=== PATIENT | male | born 1945 | race Caucasian/White ===

== ENCOUNTER 2023-07-19 09:09 | Outpatient (OUT) | payer MEDICARE, OTHER, SELFPAY ==
[2023-07-19 10:58] LABS: Basophils Percent Auto 0.3 % (0.2-2.0); Eosinophils Percent Auto 0.7 % (0.9-7.0); Hematocrit 43.2 % (42.0-54.0); Hemoglobin 14.7 g/dL (14.0-18.0); Immature Granulocytes Abs Auto 0.02 10^3/uL (0.00-0.03); Immature Granulocytes Pct Auto 0.3 % (0.0-0.5); Lymphocytes Absolute Auto 0.9 10^3/uL (1.2-3.8); Lymphocytes Percent Auto 15.1 % (20.5-60.0); Mean Corpuscular Hemoglobin 34.1 pg (25.9-34.0); Mean Corpuscular Volume 100.2 fL (80.0-94.0); Mean Platelet Volume 11.1 fL (9.5-13.5); Monocytes Absolute Auto 0.6 10^3/uL (0.3-0.8); Monocytes Percent Auto 9.5 % (1.7-12.0); Neutrophils Absolute Auto 4.5 10^3/uL (1.4-6.5); Neutrophils Percent Auto 74.1 % (43.0-75.0); Platelet Count 151 10^3/uL (150-450); Red Blood Count 4.31 10^6/uL (4.70-6.10); White Blood Count 6.1 10^3/uL (4.0-11.0)
[2023-07-19 12:10] LABS: Estimated Average Glucose 117 mg/dL; Glycohemoglobin A1C 5.7 % (4.5-6.2)
[2023-07-19 12:51] LABS: Alanine Aminotransferase 33 U/L (16-63); Albumin Globulin Ratio 1.4; Albumin Level 3.9 g/dL (3.4-5.0); Alkaline Phosphatase 81 U/L (46-116); Anion Gap 13.4; Aspartate Amino Transferase 25 U/L (15-37); BUN Creatinine Ratio 13.9; Bilirubin Total 0.8 mg/dL (0.2-1.0); Carbon Dioxide 28.5 mmol/L (21.0-32.0); Chloride 102 mmol/L (98-107); Chol HDL Ratio 2.9; Cholesterol 164 mg/dL (<=200); Estimated GFR (African America >60 (>=60); Estimated GFR (Non-African Ame >60 (>=60); Free T3 3.33 pg/mL (2.18-3.98); Globulin 2.8 g/dL; Glucose 101 mg/dL (74-106); HDL Cholesterol 56 mg/dL (40-60); LDL Cholesterol Calculated 80.2 mg/dL; Potassium 3.9 mmol/L (3.5-5.1); Sodium 140 mmol/L (136-145); Thyroid Stimulating Hormone 1.328 uIU/mL (0.358-3.740); Total Protein 6.7 g/dL (6.4-8.2); Triglycerides 139 mg/dL (<=150); VLDL CHOLESTEROL 27.8 mg/dL
== END 2023-07-19 09:10 | disposition home or self-care (01) ==
LOC: LAB 09:12
PROVIDERS: PCP Family Medicine; Visit Provider Family Medicine
DX: I10 Essential (primary) hypertension (principal); I48.91 Unspecified atrial fibrillation; M48.061 Spinal stenosis, lumbar region without neurogenic claudication; E78.00 Pure hypercholesterolemia, unspecified; E78.5 Hyperlipidemia, unspecified; R73.09 Other abnormal glucose; Z12.5 Encounter for screening for malignant neoplasm of prostate
CPT/HCPCS: 36415; 80053; 80061; 83036; 84436; 84443; 84481; 85025; G0103

== ENCOUNTER 2024-04-20 14:03 | Inpatient (IN) | payer MEDICARE, OTHER, SELFPAY ==
[2024-04-20] VITALS (33 sets, daily range): BP systolic 146–182; BP diastolic 90–140; PULSE 63–90; TEMP 36.4–36.6; O2SAT 95–99; BMI 30.2; BMI 31.1
--- NOTE | 2024-04-20 14:10 | XR_ITS ---
The [address] [address] Patient Name: JANA MUKHERJEE MRN: [id number] date: 1945 Sex: M Assigned Patient Location: ER Current Patient Location: ER Accession/Order Number: [id number] Exam Date: 04/20/2024 15:05 Report Date: 04/20/2024 16:14 At the request of: EDNA HWANG Procedure: XR knee GAYLE 3V EXAM: XR knee GAYLE 3V HISTORY: pain s/p fall COMPARISON: None. TECHNIQUE: 3 views of bilateral knees FINDINGS: Acute mild displaced horizontal fracture is seen about the mid pole of the right patella with mild anterior displacement of distal fracture fragment. Joint alignment appears normal. Significant soft tissue swelling seen about the anterior right knee. No acute fracture of the left knee is seen. Vascular calcification is seen bilaterally. Small suprapatellar joint effusion is seen about the right knee. A 4.5 mm metallic density is seen within the infrapatellar soft tissues of the left knee suggestive of retained foreign body. XR/XR knee GAYLE 3V IMPRESSION: Acute mild displaced horizontal fracture is seen about the mid pole of the right patella. Small suprapatellar right knee joint effusion. Significant soft tissue swelling seen about the anterior right knee. A 4.5 mm metallic density is seen within the infrapatellar soft tissues of the left knee suggestive of retained foreign body. Bilateral vascular calcification. Electronically authenticated by: LANNY SANCHES Date: 04/20/2024 16:14
--- NOTE | 2024-04-20 14:10 | CT_ITS ---
The [address] [address] Patient Name: JANA MUKHERJEE MRN: [id number] date: 1945 Sex: M Assigned Patient Location: ER Current Patient Location: ER Accession/Order Number: [id number] Exam Date: 04/20/2024 15:25 Report Date: 04/20/2024 16:13 At the request of: EDNA HWANG Procedure: CT head/brain wo con HEAD CT WITHOUT CONTRAST: 04/20/2024 3:25 PM EDT Clinical Data: fall, syncope Comparison: No previous Unenhanced axial data from base to vertex. INTRA-AXIAL: No acute hemorrhage. No acute infarction is evident. EXTRA-AXIAL: No acute hemorrhage. No focal fluid collection. BRAIN VOLUME: Unremarkable for age. VENTRICLES: No hydrocephalus PARANASAL SINUSES: No air-fluid levels in the included aspects. MASTOIDS: Clear. CALVARIUM: No acute finding. EXTRACALVARIAL: No acute findings CT/CT head/brain wo con IMPRESSION: 1. No evidence of acute intracranial process on this unenhanced study as described. All CT scans at this facility use dose modulation, iterative reconstruction, and/or weight based dosing when appropriate to reduce radiation dose to as low as reasonably achievable. Electronically authenticated by: YIMI WILLS Date: 04/20/2024 16:13
--- NOTE | 2024-04-20 14:10 | CT_ITS ---
The [address] [address] Patient Name: JANA MUKHERJEE MRN: [id number] date: 1945 Sex: M Assigned Patient Location: ER Current Patient Location: ER Accession/Order Number: [id number] Exam Date: 04/20/2024 15:25 Report Date: 04/20/2024 16:18 At the request of: EDNA HWANG Procedure: CT cervical spine wo con CERVICAL SPINE CT WITHOUT CONTRAST: 04/20/2024 3:25 PM EDT Clinical History:fall Comparison: None available . Unenhanced helically acquired data per protocol. Some artifact from swallowing PREVERTEBRAL/PARASPINAL: No focal soft tissue prominence or obvious fluid collection in these regions. ALIGNMENT: Loss of lordosis. Mild anterolisthesis at C4-C5 is very likely degenerative. Mild dextroscoliosis centered at C4-C5. Multilevel degenerative changes, particularly involving left upper through mid facet joints. Significant uncovertebral joint DJD at mid and lower cervical levels. Moderate DDD at C5-C6 and C6-C7 with some associated spondylosis. Fair amount of degenerative disease at the anterior atlantodens articulation. Against this background pattern of irregular degenerative disease there is no distinct evidence of acute fracture. No dislocation. OTHER SOFT TISSUES: No focal acute posttraumatic finding. At least moderate calcified plaque at both carotid bifurcations. CT/CT cervical spine wo con IMPRESSION: 1. No evidence of acute fracture or dislocation. All CT scans at this facility use dose modulation, iterative reconstruction, and/or weight based dosing when appropriate to reduce radiation dose to as low as reasonably achievable. Electronically authenticated by: YIMI WILLS Date: 04/20/2024 16:18
--- NOTE | 2024-04-20 14:10 | XR_ITS ---
[address] [address] Patient Name: JANA MUKHERJEE MRN: [id number] date: 1945 Sex: M Assigned Patient Location: ER Current Patient Location: ER Accession/Order Number: [id number] Exam Date: 04/20/2024 15:05 Report Date: 04/20/2024 16:25 At the request of: EDNA HWANG Procedure: XR ribs LT min 3V w CXR1V EXAM: XR ribs LT min 3V w CXR1V HISTORY: pain left ribs s/p fall COMPARISON: None. FINDINGS/IMPRESSION: 1. No acute fracture or dislocation 2. Lungs are clear. No pneumothorax, no pleural effusion. 3. Heart size is normal. 4. Mild degeneration of the lower cervical spine. 5. Upper abdominal bowel gas pattern is nonspecific. Electronically authenticated by: LEESA PEREZ Date: 04/20/2024 16:25
--- NOTE | 2024-04-20 14:10 | ECG_ITS ---
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
--- NOTE | 2024-04-20 14:14 | ED.GENADUL1 ---
HPI HPI - General Adult General Chief complaint: Fall Stated complaint: FALL Time Seen by Provider: 04/20/24 14:07 Source: patient Mode of arrival: ambulance History of Present Illness HPI narrative: Patient is a 78-year-old male presents to the ER from home via EMS for evaluation of fall possible syncopal episode. Patient states he was at home sitting outside drinking 6 beers when he decided to walk around his house. Patient reports waking up on the ground after a fall. He denies any blood thinner use. Patient denies any chest pain or shortness of breath, he notes soreness to his left ribs and bilateral knees after his fall and has a nontender skin tear to the left forearm. He is unsure of his last tetanus. He has a history of A-fib but does not report taking any blood thinners. Patient's was at home at time of injury. I do not know what happened. Patient states he was just walking when he woke up on the ground. Patient denies any symptoms at this time. Related Data Home Medications ?Medication ?Instructions ?Recorded ?Confirmed clonidine HCl 0.1 mg tablet 0.1 mg PO Q12H 04/20/24 04/20/24 hydrochlorothiazide 25 mg tablet 25 mg PO DAILY 04/20/24 04/20/24 lisinopril 20 mg tablet 20 mg PO DAILY 04/20/24 04/20/24 omeprazole 20 mg capsule,delayed 20 mg PO DAILY 04/20/24 04/20/24 release simvastatin 20 mg tablet 20 mg PO DAILY 04/20/24 04/20/24 terazosin 10 mg capsule 10 mg PO DAILY 04/20/24 04/20/24 Allergies Allergy/AdvReac Type Severity Reaction Status Date / Time NSAIDS (Non-Steroidal Allergy Severe Verified 04/20/24 14:09 Anti-Inflamma Opioid HPI Opioid Management Most Recent Opioid Data: No Data to Display Review of Systems ROS Constitutional Denies: fever, chills or change in weight Eyes Denies: change in vision or blurry vision Ears, nose, mouth, and throat Denies: throat pain, neck pain or throat swelling Cardiovascular Reports: chest pain (Left lateral chest wall, scant abrasions.) Respiratory Denies: shortness of breath or cough Gastrointestinal Denies: abdominal pain, nausea, vomiting or coffee grounds in vomit Musculoskeletal Reports: extremity pain; Denies: back pain, neck pain or extremity swelling Integumentary/Breast Denies: rash or itching Neurological Denies: headache or numbness in extremities Psychiatric Denies: anxiety Hematologic/Lymphatic Denies: easy bruising Exam Narrative Exam Narrative: Nurses note and vital signs reviewed and patient is not hypoxic. General: The patient appears well and in no apparent distress. Patient is resting comfortably on cart. GCS = 15. Skin: Warm, dry, no pallor noted.Skin tear noted to left forearm x 3, no active bleeding. Patient has abrasions to the bilateral anterior knee right greater than left. Scant abrasions to the left lateral chest wall with no bleeding. Head: Normocephalic, atraumatic Neck: Supple, trachea mid-line, no tenderness, no lymphadenopathy. Full ROM and no cervical spinal tenderness. The patient has no step-offs or crepitus noted Eyes: PERRLA, EOMI ENT: TM's clear, no hemotympanum detected, no blood in posterior oropharynxDentures present, minimal abrasion on upper lip. Cardiovascular: Regular Rate and Rhythm, No prominent murmur. Respiratory: Patient is in no distress, no accessory muscle use, lungs are clear to auscultation, no wheezing, rales or rhonchi Chest Wall: Lateral chest wall tenderness, no palpable crepitus, no paradoxical chest motion movement patient does have skin abrasions consistent with fall likely onto the left side. Back: Back has no evidence of trauma, including contusion, abrasion, swelling or ecchymosis. The patient had no evidence of step-offs or creptitace noted. No tenderness to palpation. Negative straight leg raise bilaterally. Musculoskeletal: normal ROM, no tenderness, no swelling.Swelling noted to right prepatellar soft tissues with overlying abrasion.Leg raise intact Pulses at femoral, DP, PT, and popiteal were 2+ bilaterally. Moves all four extremities in all modalities with 5/5 strength. GI: Normal bowel sounds,Remote surgical scars noted, patient reports surgery from ulcers no tenderness to palpation, no masses appreciated. No rebound, guarding, or rigidity noted. Neurological: A&O x4, normal equal siding applicator strength, normal speech, normal coordination, normal motor, normal sensory. Psychiatric: Cooperative Constitutional Vital Signs, click to edit/add: Last Vital Signs Temp 97.9 F 04/20/24 14:04 Pulse 87 06/01/24 16:40 Resp 22 H 04/20/24 16:40 BP 146/100 H 04/20/24 16:42 Pulse Ox 95 04/20/24 16:40 O2 Del Method Room Air 04/20/24 14:04 Course Vital Signs Vital signs: Vital Signs Temperature 97.9 F 04/20/24 14:04 Pulse Rate 66 04/20/24 14:04 Respiratory Rate 20 04/20/24 14:04 Blood Pressure 150/90 H 04/20/24 14:04 Pulse Oximetry 99 04/20/24 14:04 Oxygen Delivery Method Room Air 04/20/24 14:04 Temperature 97.9 F 04/20/24 14:04 Pulse Rate 87 04/20/24 16:40 Respiratory Rate 22 H 04/20/24 16:40 Blood Pressure 146/100 H 04/20/24 16:42 Pulse Oximetry 95 04/20/24 16:40 Oxygen Delivery Method Room Air 04/20/24 14:04 Medical Decision Making MDM Narrative Medical decision making narrative: Patient admits to drinking 6 beers throughout the morning, presents after fall, possible trip or syncopal episode in his yard. Patient denies exerting himself. He has localized soreness to abrasions and left lateral chest wall. Patient breathing easily. He is unsure of any head or neck injury but does have some abrasions to his mouth. Patient denies any blood thinner use. He is alert and oriented to person place and recent events. Patient appears nontoxic.Patient denies any symptoms prior to his fall or episode.Tetanus Was updated. Patient's troponin was elevated, repeat troponin ordered as patient not experiencing any classic chest pain symptoms but did have possible syncopal event. Patient potassium noted to be 3.1 and he was given 50 mEq p.o. Patient adamantly refused p.o. aspirin, states he had a history of bleeding ulcers in the past and is not to take any anti-inflammatory medication or aspirin. Patient admits he has a history of many of intermittent A-fib and is not even on blood thinners for that. We discussed the risk benefit of aspirin, blood thinning medication in the event of a cardiac condition and the patient verbalizes understanding but declines any Treatment: Given to prior surgeons telling him never to take blood thinners. at bedside states patient drinks between 6-12 beers a day chronically. Patient was walking behind his when he fell, and he does not recall any symptoms leading up to this other than waking up on the ground. His right knee was placed in a straight leg knee immobilizer, straight leg raise was intact with initial exam. Patient aware we are waiting repeat troponin test before discussing disposition.Patient declines the need for any pain medication. I am not having any pain. Patient's repeat troponin minimally elevated from previous. Patient remains asymptomatic. Discussion with patient and his at bedside regarding Bated troponin, likely syncopal episode, cannot rule out cardiac event, complication with daily alcohol use and right patella fracture. Patient declines any aspirin or blood thinning medications. Patient agreeable to stay for observation and continued monitoring of his cardiac status. We discussed case with Dr. Pimentel who is agreeable to admit the patient to stepdown for observation. I did contact Dr. Pepe who will consult orthopedics on his right patella fracture. Aware of treatments. Lab Data Labs: Lab Results 04/20/24 04/20/24 Range/Units 14:35 16:07 WBC 6.0 (4.0-11.0) 10^3/uL RBC 4.10 L (4.70-6.10) 10^6/uL Hgb 13.8 L (14.0-18.0) g/dL Hct 40.5 L (42.0-54.0) % MCV 98.8 H (80.0-94.0) fL MCH 33.7 (25.9-34.0) pg MCHC 34.1 (29.9-35.2) g/dL RDW 11.9 (11.0-15.0) % Plt Count 163 (150-450) 10^3/uL MPV 10.4 (9.5-13.5) fL Neut % (Auto) 66.2 (43.0-75.0) % Lymph % (Auto) 20.6 (20.5-60.0) % [place] % (Auto) 11.6 (1.7-12.0) % Eos % (Auto) 1.0 (0.9-7.0) % Baso % (Auto) 0.3 (0.2-2.0) % Neut # (Auto) 3.9 (1.4-6.5) 10^3/uL Lymph # (Auto) 1.2 (1.2-3.8) 10^3/uL [place] # (Auto) 0.7 (0.3-0.8) 10^3/uL Eos # (Auto) 0.1 (0.0-0.7) 10^3/uL Baso # (Auto) 0.0 (0.0-0.1) 10^3/uL Abs Immat Gran (auto) 0.02 (0.00-0.03) 10^3/uL Imm/Tot Granulo (auto) 0.3 (0.0-0.5) % PT 10.7 (9.0-11.6) sec INR 1.01 APTT 28.6 (22.3-36.2) sec Sodium 135 L (136-145) mmol/L Potassium 3.1 L (3.5-5.1) mmol/L Chloride 98 (98-107) mmol/L Carbon Dioxide 25.7 (21.0-32.0) mmol/L Anion Gap 14.4 BUN 12.0 (7.0-18.0) mg/dL Creatinine 0.82 (0.70-1.30) mg/dL Est GFR ( Amer) >60 (>=60) Est GFR (Non-Af Amer) >60 (>=60) BUN/Creatinine Ratio 14.6 Glucose 106 (74-106) mg/dL Calcium 8.6 (8.5-10.1) mg/dL Total Bilirubin 0.7 (0.2-1.0) mg/dL AST 28 (15-37) U/L ALT 33 (16-63) U/L Alkaline Phosphatase 90 (46-116) U/L Troponin I High Sens 169.8 H* 175.6 H* (4.0-76.1) pg/mL Total Protein 6.5 (6.4-8.2) g/dL Albumin 3.7 (3.4-5.0) g/dL Globulin 2.8 g/dL Albumin/Globulin Ratio 1.3 Ethanol Quant 132 mg/dL Imaging Data CT scan - head: Radiologist's impression: ITS Impressions Cervical Spine CT 04/20/24 14:10 IMPRESSION: 1. No evidence of acute fracture or dislocation. All CT scans at this facility use dose modulation, iterative reconstruction, and/or weight based dosing when appropriate to reduce radiation dose to as low as reasonably achievable. Electronically authenticated by: YIMI WILLS Date: 04/20/2024 16:[address] 04/20/24 14:10 IMPRESSION: 1. No evidence of acute intracranial process on this unenhanced study as described. All CT scans at this facility use dose modulation, iterative reconstruction, and/or weight based dosing when appropriate to reduce radiation dose to as low as reasonably achievable. Electronically authenticated by: YIMI WILLS Date: 04/20/2024 16:13 Knee X-Ray 04/20/24 14:10 IMPRESSION: Acute mild displaced horizontal fracture is seen about the mid pole of the right patella. Small suprapatellar right knee joint effusion. Significant soft tissue swelling seen about the anterior right knee. A 4.5 mm metallic density is seen within the infrapatellar soft tissues of the left knee suggestive of retained foreign body. Bilateral vascular calcification. Electronically authenticated by: LANNY SANCHES Date: 04/20/2024 16:14 ECG Data Attestation: I personally reviewed and interpreted this ECG as follows: Interpretation: EKG interpretation: Emergency Department physician interpretation, normal sinus rhythm, 63 bpm , [address] segment elevation, normal axis. RepeatEKG 15:46: Sinus Rhythm 78 BPM: artifact, NO ST elevation. Discharge Plan Discharge Chief Complaint: Fall Clinical Impression: Syncope, Elevated troponin, Closed fracture of right patella, Alcohol abuse Patient Disposition: Admitted as Observation Time of Disposition Decision: 17:00 Condition: Good Prescriptions / Home Meds: No Action clonidine HCl 0.1 mg tablet 0.1 mg PO Q12H hydrochlorothiazide 25 mg tablet 25 mg PO DAILY lisinopril 20 mg tablet 20 mg PO DAILY omeprazole 20 mg capsule,delayed release(DR/EC) 20 mg PO DAILY simvastatin 20 mg tablet 20 mg PO DAILY terazosin 10 mg capsule 10 mg PO DAILY Print Language: Belarusian Additional Instructions: Pt see Dr. Lane Gross for orthopedics (L) knee, Cardiology with [facility], Dr. Rg- PCP, [facility] abdominal sx, bleeding ulcer. ( lives at home with pt he drinks 6-12 beers a day, everyday ) Referrals: Claudio Rg MD [Primary Care Provider] - 1 week Procedures ED Procedure Instructions Procedures Procedures: Splint Application: The patient was placed in a Right straight leg knee immobilizer. The patient was neurovascularly intact post application of the splint.
[2024-04-20 14:40] LABS: Basophils Percent Auto 0.3 % (0.2-2.0); Eosinophils Absolute Auto 0.1 10^3/uL (0.0-0.7); Hematocrit 40.5 % (42.0-54.0); Hemoglobin 13.8 g/dL (14.0-18.0); Immature Granulocytes Abs Auto 0.02 10^3/uL (0.00-0.03); Immature Granulocytes Pct Auto 0.3 % (0.0-0.5); Lymphocytes Absolute Auto 1.2 10^3/uL (1.2-3.8); Lymphocytes Percent Auto 20.6 % (20.5-60.0); Mean Corpuscular HGB Conc 34.1 g/dL (29.9-35.2); Mean Corpuscular Hemoglobin 33.7 pg (25.9-34.0); Mean Corpuscular Volume 98.8 fL (80.0-94.0); Mean Platelet Volume 10.4 fL (9.5-13.5); Monocytes Absolute Auto 0.7 10^3/uL (0.3-0.8); Monocytes Percent Auto 11.6 % (1.7-12.0); Neutrophils Absolute Auto 3.9 10^3/uL (1.4-6.5); Neutrophils Percent Auto 66.2 % (43.0-75.0); Platelet Count 163 10^3/uL (150-450); Red Cell Distribution Width 11.9 % (11.0-15.0)
[2024-04-20] MEDS: 0.9 % SODIUM CHLORIDE 1,000 ML 999 ML IV (14:47)
[2024-04-20] MEDS: BACITRACIN 0.9 GM PACKET 1 PACKET TOPICAL (14:48)
[2024-04-20] MEDS: ADACEL DIPH,PERTUSS(ACELL),TET VAC/PF 0.5 ML ADULT SYRINGE IM (14:48)
[2024-04-20 14:55] LABS: INR 1.01; Partial Thromboplastin Time 28.6 sec (22.3-36.2); Prothrombin Time 10.7 sec (9.0-11.6)
[2024-04-20 14:59] LABS: Alanine Aminotransferase 33 U/L (16-63); Albumin Globulin Ratio 1.3; Albumin Level 3.7 g/dL (3.4-5.0); Alkaline Phosphatase 90 U/L (46-116); Anion Gap 14.4; Aspartate Amino Transferase 28 U/L (15-37); BUN Creatinine Ratio 14.6; Bilirubin Total 0.7 mg/dL (0.2-1.0); Calcium 8.6 mg/dL (8.5-10.1); Carbon Dioxide 25.7 mmol/L (21.0-32.0); Chloride 98 mmol/L (98-107); Estimated GFR (African America >60 (>=60); Estimated GFR (Non-African Ame >60 (>=60); Globulin 2.8 g/dL; Glucose 106 mg/dL (74-106); Potassium 3.1 mmol/L (3.5-5.1); Sodium 135 mmol/L (136-145); Total Protein 6.5 g/dL (6.4-8.2)
[2024-04-20 15:02] LABS: Troponin I High Sensitivity 169.8 pg/mL (4.0-76.1)
[2024-04-20 15:16] LABS: Ethanol 132 mg/dL
[2024-04-20] MEDS: POTASSIUM BICARBONATE/CIT 25 MEQ TABLET EFF 50 MEQ PO (15:38)
--- NOTE | 2024-04-20 15:44 | ECG_ITS ---
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
[2024-04-20 16:45] LABS: Troponin I High Sensitivity 175.6 pg/mL (4.0-76.1)
[2024-04-20] MEDS: LACTATED RINGER'S SOLUTION 1,000 ML 125 ML IV (18:40)
[2024-04-20 20:32] LABS: Troponin I High Sensitivity 165.1 pg/mL (4.0-76.1)
[2024-04-20] MEDS: ACETAMINOPHEN 325 MG TABLET 650 MG PO (21:19)
[2024-04-21] VITALS (38 sets, daily range): BP systolic 114–192; BP diastolic 59–104; PULSE 63–117; TEMP 36.3–36.8; O2SAT 78–99
[2024-04-21] MEDS: HYDRALAZINE HCL 20 MG/ML VIAL 10 MG IVP (01:07)
[2024-04-21] MEDS: LACTATED RINGER'S SOLUTION 1,000 ML 125 ML IV (01:07)
[2024-04-21 02:04] LABS: Basophils Percent Auto 0.2 % (0.2-2.0); Eosinophils Percent Auto 0.2 % (0.9-7.0); Hematocrit 36.1 % (42.0-54.0); Hemoglobin 12.5 g/dL (14.0-18.0); Immature Granulocytes Abs Auto 0.01 10^3/uL (0.00-0.03); Immature Granulocytes Pct Auto 0.2 % (0.0-0.5); Lymphocytes Absolute Auto 0.7 10^3/uL (1.2-3.8); Lymphocytes Percent Auto 10.6 % (20.5-60.0); Mean Corpuscular HGB Conc 34.6 g/dL (29.9-35.2); Mean Corpuscular Hemoglobin 33.5 pg (25.9-34.0); Mean Corpuscular Volume 96.8 fL (80.0-94.0); Mean Platelet Volume 10.9 fL (9.5-13.5); Monocytes Absolute Auto 0.6 10^3/uL (0.3-0.8); Monocytes Percent Auto 8.7 % (1.7-12.0); Neutrophils Absolute Auto 5.2 10^3/uL (1.4-6.5); Neutrophils Percent Auto 80.1 % (43.0-75.0); Platelet Count 152 10^3/uL (150-450); Red Blood Count 3.73 10^6/uL (4.70-6.10); Red Cell Distribution Width 11.9 % (11.0-15.0); White Blood Count 6.4 10^3/uL (4.0-11.0)
[2024-04-21 02:25] LABS: Alanine Aminotransferase 24 U/L (16-63); Albumin Globulin Ratio 1.4; Albumin Level 3.3 g/dL (3.4-5.0); Alkaline Phosphatase 80 U/L (46-116); Anion Gap 12.6; Aspartate Amino Transferase 22 U/L (15-37); BUN Creatinine Ratio 14.5; Bilirubin Total 1.3 mg/dL (0.2-1.0); Calcium 8.2 mg/dL (8.5-10.1); Carbon Dioxide 23.6 mmol/L (21.0-32.0); Chloride 96 mmol/L (98-107); Estimated GFR (African America >60 (>=60); Estimated GFR (Non-African Ame >60 (>=60); Globulin 2.3 g/dL; Glucose 100 mg/dL (74-106); Potassium 3.2 mmol/L (3.5-5.1); Sodium 129 mmol/L (136-145); Total Protein 5.6 g/dL (6.4-8.2)
[2024-04-21 02:37] LABS: Troponin I High Sensitivity 176.7 pg/mL (4.0-76.1)
--- NOTE | 2024-04-21 04:49 | ECG_ITS ---
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
[2024-04-21] MEDS: METOPROLOL TARTRATE 5 MG/5 ML VIAL IVP (05:00)
[2024-04-21] MEDS: ACETAMINOPHEN 325 MG TABLET 650 MG PO (07:26)
--- NOTE | 2024-04-21 08:19 | PC.NURSE ---
Patient and are insistent that patient takes his home medications as he was told by his PCP, Dr. Jayy Rg, to bring them in with any hospital admission. Patient refused to take any medications provided at this time provided by the hospital. Witnessed patient taking the following medication: 1 tablet of Metoprolol Succinate ER Tabs 100 mg, [address] Caps 20 mg, 1 tablet of Hydrochloriazide Tabs 25 mg, 1 tablet of Clonidine Hcl Tabs 0.1 mg, 2 soft gels of PreserVison Eye Vitamins. Patient allowed this RN to put medications in drawer and lock the drawer. No narcotics were in patients bag of home medications at this time. Patient was advised of policy change for home medication administration that would occur on 04/22/2024. Patient and verbalized understanding at this time.
[2024-04-21 08:38] LABS: Troponin I High Sensitivity 235.8 pg/mL (4.0-76.1)
--- NOTE | 2024-04-21 09:27 | P.HP_ITS ---
HPI H&P: HPI History of Present Illness Chief complaint: Right Patella Fracture Narrative: Pt seen in ER with syncopal episode. Been drinking more. ETOH level in ER high. Tachycardia with a-fib, REsp distress. Foubnd to have a Fractured R knee cap. Elevated Troponin, With syncope elevated troponin, admitted to ICU. When I saw the patient in the ICU, He was restingcomfortably in bed. Denied CP, PEREZ, Headache. Monitor with A-fib with controlled response mostly. Opioid HPI Opioid Management Most Recent Opioid Data: Last Pain Scale 4 04/21/24 08:26 Last Pain Assessment 04/21/24 12:00 Last MAR Pain Assessment 04/21/24 08:26 Last ORT Total Score 3 04/20/24 17:47 Last ORT Risk Category Low Risk 04/20/24 17:47 Review of Systems ROS Status of ROS 10 or more systems reviewed and unremark able except as noted in history and below [facility] Medical History (Updated 04/21/24 @ 11:59 by MARY Echeverria) Cataract (lens) fragments in eye following cataract surgery, bilateral ?H59.023 - Cataract (lens) fragments in eye following cataract surgery, bilateral (ICD-10) Social History Highest level of school completed/degree received: 9th grade Meds Home Medications and Allergies Home Medications ?Medication ?Instructions ?Recorded ?Confirmed ?Type clonidine HCl 0.1 mg tablet 0.1 mg PO Q12H 04/20/24 04/20/24 History hydrochlorothiazide 25 mg tablet 25 mg PO DAILY 04/20/24 04/20/24 History lisinopril 20 mg tablet 20 mg PO BEDTIME 04/20/24 04/21/24 History metoprolol succinate 100 mg 100 mg PO DAILY 04/20/24 04/20/24 History tablet,extended release 24 hr omeprazole 20 mg capsule,delayed 20 mg PO DAILY 04/20/24 04/20/24 History release simvastatin 20 mg tablet 20 mg PO BEDTIME 04/20/24 04/21/24 History terazosin 10 mg capsule 10 mg PO BEDTIME 04/20/24 04/21/24 History vit C 250 mg-vit E 90 mg-zinc 40 1 tab PO BID 04/21/24 04/21/24 History mg-copper 1 [id number] capsule (PreserVision AREDS-2) Allergies Allergy/AdvReac Type Severity Reaction Status Date / Time NSAIDS (Non-Steroidal Allergy Severe Verified 04/20/24 14:09 Anti-Inflamma Exam Constitutional Vital Signs, click to edit/add: Last Vital Signs Temp 97.9 F 04/21/24 07:23 Pulse 98 H 04/21/24 08:00 Resp 28 H 04/21/24 07:30 BP 147/67 H 04/21/24 07:23 Pulse Ox 96 04/21/24 07:23 O2 Del Method Room Air 04/21/24 05:30 Documenting provider has reviewed patient's vital signs: yes Common normals: no apparent distress Respiratory Common normals: normal respiratory effort, no retractions and no use of accessory muscles Cardio Common normals: regular rate and regular rhythm; murmurs detected Heart sounds: murmur systolic GI Common normals: Normal to inspection, nondistended, normoactive bowel sounds present Extremity Common normals: normal to inspection (R leg in splint) Results Labs Labs: Short CBC 04/20/24 04/21/24 Range/Units 14:35 01:57 WBC 6.0 6.4 (4.0-11.0) 10^3/uL Hgb 13.8 L 12.5 L (14.0-18.0) g/dL Hct 40.5 L 36.1 L (42.0-54.0) % Plt Count 163 152 (150-450) 10^3/uL BMP 04/20/24 04/21/24 14:35 01:57 Sodium 135 L 129 L Potassium 3.1 L 3.2 L Chloride 98 96 L Carbon Dioxide 25.7 23.6 BUN 12.0 10.0 Creatinine 0.82 0.69 L Glucose 106 100 Calcium 8.6 8.2 L Liver Function 04/20/24 04/21/24 Range/Units 14:35 01:57 Total Bilirubin 0.7 1.3 H (0.2-1.0) mg/dL AST 28 22 (15-37) U/L ALT 33 24 (16-63) U/L Alkaline Phosphatase 90 80 (46-116) U/L Albumin 3.7 3.3 L (3.4-5.0) g/dL Assessment and Plan Assessment and Plan (1) Alcohol abuse: (2) Closed fracture of right patella: Qualifiers: Encounter type: initial encounter Fracture alignment: displaced Fracture morphology: transverse Qualified Code(s): S82.031A - Displaced transverse fracture of right patella, initial encounter for closed fracture (3) Syncope: (4) Elevated troponin: Plan A-Fib RVR with Respiratory distress, Uncontrolled hypertension resulting in demand ischemia and elevated High sensitivity troponin, leading to syncope and head contusion and fractured R patella. A-fib, rvr - rate controlled currently Elevated Troponin likely related to uncontrolled hypertension and tachycardia with demand ischemia, Check on BNP, Check echo, add imdur Hypertension up some this am - has PRN hydralazine, will add back his home clonidine but inc to TID R Patellar fracture - consult to Ortho ETOH abuse - Doug casey, agrees. CIWA scale and start phenobarb Acute blood loss anemia - down 2 gams from baseline hgb fo 14. Check occ blood - cont with omeprazole for now Hyponatremia - likely alcohol abuse related - change to NS Hypokalemia - Supplement - monitor daily Mild PCM related to ETOH abuse - diet management Admission status: Elevated troponin, uncontrolled hypertension, syncope admitted to ICU inpatient as medically necessary treatment and waiting for Testing (Echo), Medically Necessary treatment will span 2 midnights requiring inpatient status
[2024-04-21] MEDS: 0.9 % SODIUM CHLORIDE 1,000 ML 75 ML IV ×2 (09:39→22:09)
[2024-04-21] MEDS: CLORDIAZEPOXIDE HCl 25 MG CAPSULE PO (09:44)
[2024-04-21] MEDS: POTASSIUM CHLORIDE 10 MEQ ER TABLET 20 MEQ PO ×2 (09:44→17:30)
[2024-04-21] MEDS: ISOSORBIDE MONONITRATE 30 MG TAB.ER.24H PO (09:44)
--- NOTE | 2024-04-21 11:15 | PC.NURSE ---
Ortho in with patient discussing plan of care and need for surgery on patellar fracture. Dressing to right knee removed and redressed with adaptic and kerlix. Patient to have leg elevated and ice applied while in knee immobilizer. Additional skin tears were assessed and redressed at this time as well. Patient tolerated dressing changes well.
--- NOTE | 2024-04-21 11:45 | P.ORCN_ITS ---
History of Present Illness HPI Consult date: 04/21/24 Requesting physician: Vic Castorena Consult reason: fracture Chief complaint: Right Patella Fracture Narrative: Patient is 78yr old male with a PMH of A.Fib, HTN, HLD, and Alcohol abuse that presented to the ED yesterday on 04/20/24 after he suffered a syncopal fall from standing. Patient denies antiplatelet or anticoagulant use. Pt states that he was drinking some beers outside and then went inside and woke up on the ground. Patient underwent workup in the ED that included an Xray of his R Knee revealing a Patella fracture. Orthopedics was consulted by the ED Physician for further evaluation and management of this fracture. Patient was admitted by the hospitalist for syncopal workup with an elevated troponin. Review of Systems ROS Musculoskeletal Reports: extremity pain (R Knee), joint pain and joint swelling (Prepatellar effusion) [facility] Medical History (Updated 04/21/24 @ 11:59 by MARY Echeverria) Cataract (lens) fragments in eye following cataract surgery, bilateral ?H59.023 - Cataract (lens) fragments in eye following cataract surgery, bilateral (ICD-10) Social History Highest level of school completed/degree received: 9th grade Meds Home Medications and Allergies Home Medications ?Medication ?Instructions ?Recorded ?Confirmed ?Type clonidine HCl 0.1 mg tablet 0.1 mg PO Q12H 04/20/24 04/20/24 History hydrochlorothiazide 25 mg tablet 25 mg PO DAILY 04/20/24 04/20/24 History lisinopril 20 mg tablet 20 mg PO BEDTIME 04/20/24 04/21/24 History metoprolol succinate 100 mg 100 mg PO DAILY 04/20/24 04/20/24 History tablet,extended release 24 hr omeprazole 20 mg capsule,delayed 20 mg PO DAILY 04/20/24 04/20/24 History release simvastatin 20 mg tablet 20 mg PO BEDTIME 04/20/24 04/21/24 History terazosin 10 mg capsule 10 mg PO BEDTIME 04/20/24 04/21/24 History vit C 250 mg-vit E 90 mg-zinc 40 1 tab PO BID 04/21/24 04/21/24 History mg-copper 1 [id number] capsule (PreserVision AREDS-2) Allergies Allergy/AdvReac Type Severity Reaction Status Date / Time NSAIDS (Non-Steroidal Allergy Severe Verified 04/20/24 14:09 Anti-Inflamma Exam Narrative Exam Narrative: On exam patient is in no distress and sitting up on the hospital bed. Knee immobilizer is in place. ROM of R Knee not attempted 2/2 to pain and fracture. Full ROM distally R extremity 5/5 strength DF/PF. Patient is tender to palpation of his R Patella with prepatellar effusion present. There is a abrasion to his R Knee overlying the patella with no drainage from the wound noted on exam, the dressing was removed and appears to have some ss drainage present. Joint line tenderness to palpation also present medially and laterally. Knee extensor mechanism appears intact, patient able to complete a SLR in knee immobilizer. Constitutional Vital Signs, click to edit/add: Last Vital Signs Temp 97.9 F 04/21/24 07:23 Pulse 100 H 04/21/24 10:00 Resp 28 H 04/21/24 07:30 BP 147/67 H 04/21/24 08:00 Pulse Ox 96 04/21/24 07:23 O2 Del Method Room Air 04/21/24 10:43 Results Labs Labs: Abnormal lab results 04/20/24 04/20/24 04/20/24 Range/Units 14:35 16:07 20:03 RBC 4.10 L (4.70-6.10) 10^6/uL Hgb 13.8 L (14.0-18.0) g/dL Hct 40.5 L (42.0-54.0) % MCV 98.8 H (80.0-94.0) fL Neut % (Auto) (43.0-75.0) % Lymph % (Auto) (20.5-60.0) % Eos % (Auto) (0.9-7.0) % Lymph # (Auto) (1.2-3.8) 10^3/uL Sodium 135 L (136-145) mmol/L Potassium 3.1 L (3.5-5.1) mmol/L Chloride (98-107) mmol/L Creatinine (0.70-1.30) mg/dL Calcium (8.5-10.1) mg/dL Total Bilirubin (0.2-1.0) mg/dL Troponin I High Sens 169.8 H* 175.6 H* 165.1 H* (4.0-76.1) pg/mL Total Protein (6.4-8.2) g/dL Albumin (3.4-5.0) g/dL 04/21/24 04/21/24 Range/Units 01:57 07:52 RBC 3.73 L (4.70-6.10) 10^6/uL Hgb 12.5 L (14.0-18.0) g/dL Hct 36.1 L (42.0-54.0) % MCV 96.8 H (80.0-94.0) fL Neut % (Auto) 80.1 H (43.0-75.0) % Lymph % (Auto) 10.6 L (20.5-60.0) % Eos % (Auto) 0.2 L (0.9-7.0) % Lymph # (Auto) 0.7 L (1.2-3.8) 10^3/uL Sodium 129 L (136-145) mmol/L Potassium 3.2 L (3.5-5.1) mmol/L Chloride 96 L (98-107) mmol/L Creatinine 0.69 L (0.70-1.30) mg/dL Calcium 8.2 L (8.5-10.1) mg/dL Total Bilirubin 1.3 H (0.2-1.0) mg/dL Troponin I High Sens 176.7 H* 235.8 H* (4.0-76.1) pg/mL Total Protein 5.6 L (6.4-8.2) g/dL Albumin 3.3 L (3.4-5.0) g/dL H & H 04/20/24 04/21/24 Range/Units 14:35 01:57 Hgb 13.8 L 12.5 L (14.0-18.0) g/dL Hct 40.5 L 36.1 L (42.0-54.0) % Coagulation 04/20/24 Range/Units 14:35 INR 1.01 All other labs normal. Assessment and Plan Assessment and Plan (1) Closed fracture of right patella: Qualifiers: Encounter type: initial encounter Fracture morphology: transverse Fracture alignment: displaced Qualified Code(s): S82.031A - Displaced transverse fracture of right patella, initial encounter for closed fracture Plan - Xray R Knee reviewed from 04/20 with note of acute mild displaced horizontal fracture is seen about the mid pole of the right patella, Significant soft tissue swelling seen about the anterior right knee. A 4.5 mm metallic density is seen within the infrapatellar soft tissues of the left knee suggestive of retained foreign body. - WBAT in Knee Immobilizer - We discussed Ice q2h for 20min at a time to R Knee and elevation, pt voiced understanding. - Recommended ORIF Right Patella, risks and benefits of surgery vs non operative management were discussed and patient, who voices understanding and would like to proceed with operative repair. - Patient will need medical clearance prior to surgery given his recent a dmission. - Surgery will likely be Monday 04/23, patient may be discharged home from Ortho standpoint once medically cleared. Our office will contact him with details about the surgery. Maintain knee immobilizer for ambulation at discharge.
[2024-04-21] MEDS: CLONIDINE HCL 0.1 MG TABLET 0.100000000000000006 MG PO (12:26)
[2024-04-21] MEDS: PHENobarbitaL 32.4 MG TABLET 32.3999999999999986 MG PO ×2 (12:26→17:31)
[2024-04-22] VITALS (26 sets, daily range): BP systolic 117–180; BP diastolic 67–89; PULSE 72–98; TEMP 36.3–36.9; O2SAT 78–97
[2024-04-22] MEDS: ISOSORBIDE MONONITRATE 30 MG TAB.ER.24H PO (04:03)
[2024-04-22] MEDS: POTASSIUM CHLORIDE 10 MEQ ER TABLET 20 MEQ PO ×2 (04:04→17:37)
[2024-04-22] MEDS: CLONIDINE HCL 0.1 MG TABLET 0.100000000000000006 MG PO ×3 (04:04→17:37)
[2024-04-22] MEDS: OMEPRAZOLE 20 MG CAPSULE.DR PO (04:07)
[2024-04-22] MEDS: METOPROLOL SUCCINATE 50 MG TAB.ER.24H 100 MG PO (04:07)
[2024-04-22] MEDS: PHENobarbitaL 32.4 MG TABLET 32.3999999999999986 MG PO ×3 (04:07→17:37)
[2024-04-22 05:21] LABS: Basophils Percent Auto 0.1 % (0.2-2.0); Eosinophils Percent Auto 0.4 % (0.9-7.0); Hematocrit 38.3 % (42.0-54.0); Hemoglobin 12.8 g/dL (14.0-18.0); Immature Granulocytes Abs Auto 0.03 10^3/uL (0.00-0.03); Immature Granulocytes Pct Auto 0.4 % (0.0-0.5); Lymphocytes Absolute Auto 0.8 10^3/uL (1.2-3.8); Lymphocytes Percent Auto 12.2 % (20.5-60.0); Mean Corpuscular HGB Conc 33.4 g/dL (29.9-35.2); Mean Corpuscular Hemoglobin 33.5 pg (25.9-34.0); Mean Corpuscular Volume 100.3 fL (80.0-94.0); Mean Platelet Volume 11.4 fL (9.5-13.5); Monocytes Absolute Auto 0.9 10^3/uL (0.3-0.8); Monocytes Percent Auto 13.1 % (1.7-12.0); Neutrophils Absolute Auto 5.1 10^3/uL (1.4-6.5); Neutrophils Percent Auto 73.8 % (43.0-75.0); Platelet Count 131 10^3/uL (150-450); Red Blood Count 3.82 10^6/uL (4.70-6.10); Red Cell Distribution Width 12.5 % (11.0-15.0); White Blood Count 6.9 10^3/uL (4.0-11.0)
[2024-04-22 05:59] LABS: Alanine Aminotransferase 23 U/L (16-63); Albumin Globulin Ratio 1.1; Albumin Level 2.9 g/dL (3.4-5.0); Alkaline Phosphatase 77 U/L (46-116); Anion Gap 12.3; Aspartate Amino Transferase 25 U/L (15-37); BUN Creatinine Ratio 16.5; Bilirubin Total 1.2 mg/dL (0.2-1.0); Calcium 8.7 mg/dL (8.5-10.1); Carbon Dioxide 22.9 mmol/L (21.0-32.0); Chloride 102 mmol/L (98-107); Estimated GFR (African America >60 (>=60); Estimated GFR (Non-African Ame >60 (>=60); Globulin 2.7 g/dL; Glucose 101 mg/dL (74-106); Potassium 4.2 mmol/L (3.5-5.1); Sodium 133 mmol/L (136-145); Total Protein 5.6 g/dL (6.4-8.2)
--- NOTE | 2024-04-22 06:00 | CA_ITS ---
Patient Name: JANA MUKHERJEE MR#: [id number] : 1945 Exam Date: 04/22/2024 Ordering Doctor: DR Claudio Rg . ECHOCARDIOGRAM REPORT PROCEDURE: CA ECHO DOPPLER COMPLETE INDICATIONS: Elevated Troponin, syncope, atrial fibrillation, hypertension COMPARISON: None. DESCRIPTION: COMPLETE ECHOCARDIOGRAM Real-time transthoracic echocardiography with 2D, M-mode, spectral and color flow Doppler performed. QUALITY: Technical quality was good. 68 , 204#, BP 147/81 LEFT VENTRICLE: Normal chamber size. Moderate concentric left ventricular hypertrophy. LV EF: Global left ventricular ejection fraction is hyperdynamic; visually ejection fraction is 65 to 70%. No significant wall motion abnormalities. DIASTOLIC: Not adequately assessed due to heart rhythm. ATRIAL SEPTUM: Visually appears intact. LEFT ATRIUM: Moderate dilatation. RIGHT ATRIUM: Moderate dilatation. RIGHT VENTRICLE: Mild dilatation. Normal right ventricular systolic function. TRICUSPID VALVE: Normal mobility and thickness. No stenosis with trivial regurgitation. Unable to assess right-sided pressures due to lack of measurable tricuspid regurgitation. MITRAL VALVE: Normal mobility and thickness. No evidence of mitral valve stenosis. Moderate mitral annular calcification. Trivial mitral regurgitation. AORTIC VALVE: Normal trileaflet appearance. No visible sclerosis. Normal leaflet mobility. No evidence of aortic valve stenosis. No aortic regurgitation. AORTIC ROOT: Normal diameter and appearance. Ascending aorta is normal in size. PULMONIC VALVE: Normal thickness and mobility. No stenosis. Trivial regurgitation. PERICARDIUM: Anterior free space; trivial effusion versus fat pad. IVC: Collapses with inspirations. IVC is dilated (2.2 cm). CONCLUSION: 1. Global left ventricular systolic function is hyperdynamic; visually estimated ejection fraction is 65 to 70% 2. The right ventricle is mildly dilated with preserved systolic function 3. Biatrial enlargement 4. Moderately increased left ventricular wall thickness 5. No significant valvular abnormalities 6. Anterior free space; trivial effusion versus fat pad Adult Echocardiography Procedure Report Left Ventricle LVEDD (3.7 - 5.6 cm): 4.64 cm LVESD (2.2 - 4.0 cm): 3.05 cm LVIVS thickness (0.6 - 1.2 cm): 1.65 cm LVPW thickness (0.5 - 1.0 cm): 1.18 cm e': 0.14 m/s LVOT Max Gradient: 3.65 mm[Hg], 2.01 mm[Hg] LVOT Area (cm2): 0.83 m/s Peak Velocity (LVOT): 0.96 m/s, 0.71 m/s Mean Velocity (LVOT): 0.56 m/s LVOT Diameter 2.27 cm Left Atrium LA Volume Index (2D A2C): 41.47 ml/m2 Left Atrium Systolic Dimension: 4.35 cm Mitral Valve Mitral Valve E-Wave Peak Velocity: 1.10 m/s Right Ventricle RV Internal Diastolic Dimension: 4.05 cm Aorta AO Root Diam: 3.64 cm Ascending Ao Diam: 2.88 cm Aortic Valve AoV Area (Peak Raudel): 2.13 cm2, 2.25 cm2, 1.99 cm2 AoV Area (VTI): 2.20 cm2, 2.35 cm2, 2.03 cm2 Peak Velocity(Antegrade Flow): 1.72 m/s, 1.45 m/s Peak Gradient(Antegrade Flow): 11.84 mm[Hg], 8.35 mm[Hg] Mean Velocity(Antegrade Flow): 1.19 m/s, 1.02 m/s Mean Gradient(Antegrade Flow): 6.46 mm[Hg], 4.78 mm[Hg] Velocity Time Integral: 31.15 cm, 27.35 cm Tricuspid Valve Pulmonic Valve Mean Gradient: 2.37 mm[Hg], 3.08 mm[Hg] Mean Velocity: 0.73 m/s, 0.81 m/s Peak Velocity: 1.14 m/s, 1.08 m/s Peak Gradient: 3.87 mm[Hg], 6.65 mm[Hg], 4.63 mm[Hg] Right Atrium Right Atrium Systolic Pressure: 67.21 ml, 67.21 ml Dictated by: Sherry No M.D. on 04/22/2024 at 14:50 Approved by: Sherry No M.D. on 04/22/2024 at 14:55
--- NOTE | 2024-04-22 07:31 | ECG_ITS ---
[facility] Test Date: 2024-04-22 Pat Name: JANA MUKHERJEE Department: Room: 203 Gender: Male Rn Circulating: : 1945 Requested By: JACQUE MADRID Order Number: [id number] Reading MD: LEEANN BAHENA Measurements Intervals [place] Rate: 78 P: HI: QRS: 66 QRSD: 79 T: 51 QT: 353 QTc: 403 Interpretive Statements ATRIAL FIBRILLATION NONSPECIFIC T-WAVE ABNORMALITY ABNORMAL RHYTHM ECG Compared to ECG 04/21/2024 04:43:01 Aberrant conduction of supraventricular beat(s) now present T-wave abnormality now present Electronically Signed On 04-25-2024 21:17:51 EDT by LEEANN BAHENA
--- NOTE | 2024-04-22 07:33 | P.DS_ITS ---
DS: Providers Provider Date of admission: 04/21/24 09:29 Primary care physician: Claudio Rg MD Consults: 04/20/24 16:49 Occupational Therapy Eval and Treat Routine Reason for consultation: Ambulatory dysfunction/weakness Physical Therapy Eval and Treat Routine Reason for consultation: Ambulatory dysfunction/weakness 04/20/24 16:59 Consult to Orthopedic Surgery Routine Consulting Provider: Lazaro Pepe Reason For Exam: Reason for consultation: lizandro Aware (R) patella fx Has provider been notified: Yes 04/22/24 07:26 Consult to Anesthesiology Routine Consulting Provider: Tereso Katz II Reason for consultation: can any anesth look at case to cleared for OR - spinal for patellar fx Has provider been notified: No 04/22/24 07:29 Consult to Cardiology Routine Reason for consultation: elevated Trop Has provider been notified: No DS: Diagnosis Discharge Diagnosis (1) Alcohol abuse: (2) Closed fracture of right patella: Qualifiers: Encounter type: initial encounter Fracture alignment: displaced Fracture morphology: transverse Qualified Code(s): S82.031A - Displaced transverse fracture of right patella, initial encounter for closed fracture (3) Syncope: (4) Elevated troponin: Plan A-Fib RVR with Respiratory distress, Uncontrolled hypertension resulting in demand ischemia and elevated High sensitivity troponin - elevated at inna time of dc A-fib, rvr - rate controlled currently at time of d/c - PT refuses anticoagulation due to hx of severe GI bleed resulting in major abd surgery Elevated Troponin likely related to uncontrolled hypertension and tachycardia with demand ischemia - elevagted at time of d/c Hypertension - improved at time of d/c R Patellar fracture - consult to Ortho ETOH abuse - added wellbutrin at dc Acute blood loss anemia - down 2 gams from baseline hgb fo 14. Check occ blood pending at d/c Hyponatremia - improving at the time of dc Hypokalemia - resolved at dc Mild PCM related to ETOH abuse - diet management Thrombocytopenia-follow as an outpatient History of severe gastrointestinal bleeding from the stomach resulting in major surgery. Continue PPI at discharge Elevated BNP-this is related to fluids given and holding his diuretic. No overt signs of CHF at the time of discharge Admission status: Elevated troponin, uncontrolled hypertension, syncope admitted to ICU inpatient as medically necessary treatment and waiting for Testing (Echo), Medically Necessary treatment will span 2 midnights requiring inpatient status DS: Summary Hospital Course Hospital Course: Patient presented to the emergency room with a syncopal episode. He had been outside and been drinking beer. Not sure how long he was passed out. In ER found to have A-Fib RVR with Respiratory distress, Uncontrolled hypertension resulting in possible demand ischemia with elevated high-sensitivity troponin. Patient denied chest pain. His EKG and telemetry was unremarkable other than the atrial fibrillation. His high-sensitivity troponins were tracked and they were actually increasing at the time of discharge, consultation to cardiology is pending at this time. Echocardiogram reviewed later this morning. Patient would prefer to be discharged home with outpatient surgery for his patellar fracture. Assuming he is cleared from anesthesia, cleared from cardiology. Will discharge to home later today. Medications see list. Follow-up with me in the office next week. Atrial fibrillation-patient is not anticoagulated secondary to severe peptic ulcer bleed resulting in several major surgeries to correct. Patient does have elevated BNP-this is likely related to holding his diuretics and giving IV hydration, no overt signs of congestive heart failure with clear lung exam and no peripheral edema. Discussed with PT - pt can safely use a wheeled walker for ambulation. Will need for ADL's like going tothe bathroom, getting food, outside mobility for going to the store and ambulating around house Time Spent with Patient Time attestation: Total time spent providing and/or coordinating discharge services: Exam Constitutional Vital Signs, click to edit/add: Last Vital Signs Temp 97.7 F 04/22/24 06:30 Pulse 83 04/22/24 06:30 Resp 18 04/22/24 06:30 BP 147/81 H 04/22/24 06:30 Pulse Ox 97 04/22/24 06:30 O2 Del Method Room Air 04/22/24 06:30 Documenting provider has reviewed patient's vital signs: yes Common normals: no apparent distress Chest Common normals: inspection of chest normal Respiratory Common normals: normal respiratory effort, no retractions and no use of accessory muscles Cardio Common normals: regular rate and regular rhythm; murmurs detected Heart sounds: murmur systolic GI Common normals: negative for Normal to inspection, nondistended, normoactive bowel sounds present (Large mid abdominal surgical scar, well-healed) Extremity Common normals: normal to inspection (R leg in splint), no clubbing, cyanosis or edema and no pedal edema DS: Data Data Completed and Pending Labs on day of discharge: Labs from last 24 hours 04/22/24 04/21/24 04:10 07:52 WBC 6.9 RBC 3.82 L Hgb 12.8 L Hct 38.3 L MCV 100.3 H MCH 33.5 MCHC 33.4 RDW 12.5 Plt Count 131 L MPV 11.4 Neut % (Auto) 73.8 Lymph % (Auto) 12.2 L Dougherty % (Auto) 13.1 H Eos % (Auto) 0.4 L Baso % (Auto) 0.1 L Neut # (Auto) 5.1 Lymph # (Auto) 0.8 L Dougherty # (Auto) 0.9 H Eos # (Auto) 0.0 Baso # (Auto) 0.0 Abs Immat Gran (auto) 0.03 Imm/Tot Granulo (auto) 0.4 Sodium 133 L Potassium 4.2 Chloride 102 Carbon Dioxide 22.9 Anion Gap 12.3 BUN 13.0 Creatinine 0.79 Est GFR ( Amer) >60 Est GFR (Non-Af Amer) >60 BUN/Creatinine Ratio 16.5 Glucose 101 Calcium 8.7 Total Bilirubin 1.2 H AST 25 ALT 23 Alkaline Phosphatase 77 Troponin I High Sens 367.0 H* 235.8 H* NT-Pro-B Natriuret Pep 2025.0 H* 1504.0 Total Protein 5.6 L Albumin 2.9 L Globulin 2.7 Albumin/Globulin Ratio 1.1 Discharge Plan Discharge Condition: Good Discharge Medications: No Action clonidine HCl 0.1 mg tablet 0.1 mg PO Q12H hydrochlorothiazide 25 mg tablet 25 mg PO DAILY lisinopril 20 mg tablet 20 mg PO BEDTIME omeprazole 20 mg capsule,delayed release(DR/EC) 20 mg PO DAILY simvastatin 20 mg tablet 20 mg PO BEDTIME terazosin 10 mg capsule 10 mg PO BEDTIME metoprolol succinate 100 mg tablet extended release 24 hr 100 mg PO DAILY PreserVision AREDS-2 250-90-40-1 mg capsule 1 tab PO BID Print Language: Macanese Patient Instructions: A-fib (Atrial Fibrillation) (DC), Syncope (DC), Abuse of Alcohol (DC), Patellar Fracture (DC)
--- NOTE | 2024-04-22 08:01 | CM.NOTE ---
Important Message From Medicare discussed with pt, pt verbalizes understanding and signs paper. Original given to pt and copy placed on pt's chart.
[2024-04-22] MEDS: HYDROCHLOROTHIAZIDE 25 MG TABLET PO (09:02)
[2024-04-22] MEDS: BUPROPION HCL 150 MG XL TABLET 24H PO (09:02)
--- NOTE | 2024-04-22 11:33 | CM.NOTE ---
Faxed over H&P, facesheet and order to [employer] for wheeled walker. Called [employer] and walker is available for roll picker. Pt will have to pay 125.00 out of pocket and then they will bill Medicare and pt would be reimbursed. Pt and both verbalize understanding.
--- NOTE | 2024-04-22 13:00 | PM.CACN ---
History of Present Illness History of Present Illness Consult date: 04/22/24 Requesting physician: Claudio Rg Chief complaint: Right Patella Fracture Narrative: Per H&P: Pt seen in ER with syncopal episode. Been drinking more. ETOH level in ER high. Tachycardia with a-fib, REsp distress. Foubnd to have a Fractured R knee cap. Elevated Troponin, With syncope elevated troponin, admitted to ICU. When I saw the patient in the ICU, He was resting comfortably in bed. Denied CP, PEREZ, Headache. Monitor with A-fib with controlled response mostly. Per D/C Summary: Patient presented to the emergency room with a syncopal episode. He had been outside and been drinking beer. Not sure how long he was passed out. In ER found to have A-Fib RVR with Respiratory distress, Uncontrolled hypertension resulting in possible demand ischemia with elevated high-sensitivity troponin. Patient denied chest pain. His EKG and telemetry was unremarkable other than the atrial fibrillation. His high-sensitivity troponins were tracked and they were actually increasing at the time of discharge, consultation to cardiology is pending at this time. Echocardiogram reviewed later this morning. Patient would prefer to be discharged home with outpatient surgery for his patellar fracture. Assuming he is cleared from anesthesia, cleared from cardiology. Will discharge to home later today. Medications see list. Follow-up with me in the office next week. Atrial fibrillation-patient is not anticoagulated secondary to severe peptic ulcer bleed resulting in several major surgeries to correct. Patient does have elevated BNP-this is likely related to holding his diuretics and giving IV hydration, no overt signs of congestive heart failure with clear lung exam and no peripheral edema. Discussed with PT - pt can safely use a wheeled walker for ambulation. Will need for ADL's like going tothe bathroom, getting food, outside mobility for going to the store and ambulating around house Currently, he feels 'fine'. No chest pain, no SOB, no palpitations. Admits to drinking at least a '6-pack' daily 12 lead EKG ATRIAL FLUTTER/TACHYCARDIA WITH ABERRANT CONDUCTION OR VENTRICULAR PREMATURE COMPLEXES NONSPECIFIC T-WAVE ABNORMALITY ABNORMAL RHYTHM ECG No previous ECG available for comparison Review of Systems ROS Status of ROS 10 or more systems reviewed and unremarkable except as noted in history and below [facility] Medical History (Updated 04/22/24 @ 14:13 by Sherry No MD) Back fracture GIB (gastrointestinal bleeding) ?K92.2 - Gastrointestinal hemorrhage, unspecified (ICD-10) Gastric ulcer ?K25.9 - Gastric ulcer, unspecified as acute or chronic, without hemorrhage or perforation (ICD-10) Hernia ?K46.9 - Unspecified abdominal hernia without obstruction or gangrene (ICD-10) Cataract (lens) fragments in eye following cataract surgery, bilateral ?H59.023 - Cataract (lens) fragments in eye following cataract surgery, bilateral (ICD-10) Surgical History (Updated 04/21/24 @ 13:51 by Jyoti Mays RN) H/O abdominal surgery ?Z98.890 - Other specified postprocedural states (ICD-10) Social History (Updated 04/21/24 @ 13:53 by Jyoti Mays RN) Within the past year, how often did you have a drink containing alcohol: 4 or more times a week Within the past year, how many standard drinks containing alcohol did you have on a typical day: 5 or 6 Within the past year, how often did you have six or more drinks on one occasion: daily or almost daily Total score: 8 Score interpretation: A score of 4 or more indicates drinking is likely to affect patient's safety. Smoking status: Former smoker Second hand tobacco smoke exposure: No Non-prescribed substance use: denies use Highest level of school completed/degree received: 9th grade Are you now , , , , never or living with a partner: In a typical week, how many times do you talk on the telephone with family, friends, or neighbors: twice per week How often do you get together with friends or relatives: twice per week How often do you attend orthodoxy or adventism services: 4 or more times per year Do you belong to any clubs or organizations such as orthodoxy groups unions, fraternal or athletic groups, or school groups: yes Total score: 4 Score interpretation: A score of greater than or equal to 2 indicates the lowest level of social isolation. Little interest or pleasure in doing things: not at all Feeling down, depressed, or hopeless: not at all Feel stressed/tense/nervous/anxious/difficulty sleeping: decline to answer Do you think of yourself as: straight/heterosexual Gender Identity: male Meds Home Medications and Allergies Home Medications ?Medication ?Instructions ?Recorded ?Confirmed ?Type clonidine HCl 0.1 mg tablet 0.1 mg PO Q12H 04/20/24 04/20/24 History hydrochlorothiazide 25 mg tablet 25 mg PO DAILY 04/20/24 04/20/24 History lisinopril 20 mg tablet 20 mg PO BEDTIME 04/20/24 04/21/24 History metoprolol succinate 100 mg 100 mg PO DAILY 04/20/24 04/20/24 History tablet,extended release 24 hr omeprazole 20 mg capsule,delayed 20 mg PO DAILY 04/20/24 04/20/24 History release simvastatin 20 mg tablet 20 mg PO BEDTIME 04/20/24 04/21/24 History terazosin 10 mg capsule 10 mg PO BEDTIME 04/20/24 04/21/24 History vit C 250 mg-vit E 90 mg-zinc 40 1 tab PO BID 04/21/24 04/21/24 History mg-copper 1 kg-ctufkg-esaezc capsule (PreserVision AREDS-2) Allergies Allergy/AdvReac Type Severity Reaction Status Date / Time NSAIDS (Non-Steroidal Allergy Severe Verified 04/20/24 14:09 Anti-Inflamma Exam Constitutional Vital Signs, click to edit/add: Last Vital Signs Temp 97.9 F 04/22/24 11:42 Pulse 77 04/22/24 11:54 Resp 18 04/22/24 11:42 BP 158/84 H 04/22/24 12:00 Pulse Ox 95 04/22/24 11:42 O2 Del Method Room Air 04/22/24 11:42 Results Labs and Meds Lab results: Cardiac Enzymes 04/22/24 Range/Units 04:10 AST 25 (15-37) U/L CBC 04/22/24 Range/Units 04:10 WBC 6.9 (4.0-11.0) 10^3/uL RBC 3.82 L (4.70-6.10) 10^6/uL Hgb 12.8 L (14.0-18.0) g/dL Hct 38.3 L (42.0-54.0) % Plt Count 131 L (150-450) 10^3/uL Neut # (Auto) 5.1 (1.4-6.5) 10^3/uL Lymph # (Auto) 0.8 L (1.2-3.8) 10^3/uL [place] # (Auto) 0.9 H (0.3-0.8) 10^3/uL Eos # (Auto) 0.0 (0.0-0.7) 10^3/uL Baso # (Auto) 0.0 (0.0-0.1) 10^3/uL Comprehensive Metabolic Panel 04/22/24 Range/Units 04:10 Sodium 133 L (136-145) mmol/L Potassium 4.2 (3.5-5.1) mmol/L Chloride 102 (98-107) mmol/L Carbon Dioxide 22.9 (21.0-32.0) mmol/L BUN 13.0 (7.0-18.0) mg/dL Creatinine 0.79 (0.70-1.30) mg/dL Glucose 101 (74-106) mg/dL Calcium 8.7 (8.5-10.1) mg/dL AST 25 (15-37) U/L ALT 23 (16-63) U/L Alkaline Phosphatase 77 (46-116) U/L Total Protein 5.6 L (6.4-8.2) g/dL Albumin 2.9 L (3.4-5.0) g/dL Intake and Output 04/21/24 04/22/24 04/22/24 23:59 07:59 15:59 Intake Total 937.5 / 2977.5 800 / 2977.5 Balance 937.5 / 2977.5 800 / 2977.5 Intake: IV 937.5 / 2737.5 800 / 2737.5 0.9 % Sodium Chloride 1,000 ml 937.5 / 1737.5 800 / 1737.5 @ 75 mls/hr IV .[id number] [facility] Rx# :[id number] Other: # Unmeasured Voids 2 Today 04:10 04/22/24 04:10 367.0?H* pg/mL 4.0-76.1 04/21/24 07:52 235.8?H* pg/mL 4.0-76.1 ? 04/21/24 01:57 176.7?H* pg/mL 4.0-76.1 ? 04/20/24 20:03 165.1?H* pg/mL 4.0-76.1 ? 04/20/24 16:07 175.6?H* pg/mL 4.0-76.1 ? 04/20/24 14:35 169.8?H* pg/mL 4.0-76.1 Today 04:10 NT-Pro-B Natriuret Pep 5.0?H* <=1800.0?pg/mL Imaging and Cardiology Echo: image reviewed (EF 65-70%, no WMAs) EKG Interpretation EKG: interpreted by ERMD Assessment and Plan Assessment and Plan (1) Alcohol abuse: (2) Closed fracture of right patella: Assessment and Plan: Preoperative evaluation Qualifiers: Encounter type: initial encounter Fracture alignment: displaced Fracture morphology: transverse Qualified Code(s): S82.031A - Displaced transverse fracture of right patella, initial encounter for closed fracture (3) Syncope: Qualifiers: Syncope type: unspecified Qualified Code(s): R55 - Syncope and collapse (4) Elevated troponin: Assessment and Plan: Denies chest pain, no ischemic EKG changes, normal EF% on echocardiogram; Troponin elevation represents an acute myocardial injury 2ndry to atrial flutter with RVR, HTN and comorbid conditions (5) Atrial flutter: Assessment and Plan: H/O atrial fibrillation CHADS2-VASc score 3 - not on AC due to gastric bleeding Qualifiers: Atrial flutter type: unspecified Qualified Code(s): I48.92 - Unspecified atrial flutter (6) Essential hypertension: Plan 1. Correct electrolytes, IV fluid replacement, control pain 2. Currently rate controlled; consider IV cardizem gtt if needed 3. He is at moderate risk for isi-operative cardiovascular morbidity and mortality given current myocardial injury, and uncontrolled HRs in admission; recommend strict HR and BP control and avoidance of major fluid shifts isi-operatively 4. Continue medical rx for AF/flutter - if cannot be on anti-coagulation, may be a candidate for left atrial appendage occlusion. They appear to have discussed this already with Dr Reynoso and do not want to proceed 5. I reiterated the toxic effects if alcohol on the heart including atrial tachy-arrhythmias, syncope, systolic dysfunction and heart failure and increased mortality He is to follow up with Dr Reynoso as scheduled Thank you for the consult Sherry No MD, [facility] Cardiovascular Medicine
[2024-04-22] MEDS: ENOXAPARIN SODIUM 40 MG/0.4 ML SYRINGE SUBQ (17:36)
[2024-04-22] MEDS: LISINOPRIL 20 MG TABLET PO (17:37)
[2024-04-22] MEDS: TERAZOSIN HCL 5 MG CAPSULE 10 MG PO (17:44)
[2024-04-22] MEDS: ACETAMINOPHEN 500 MG TABLET 1000 MG PO (22:49)
[2024-04-23] VITALS (28 sets, daily range): BP systolic 106–178; BP diastolic 58–88; PULSE 42–87; TEMP 36.2–36.8; O2SAT 60–99
[2024-04-23] MEDS: PHENobarbitaL 32.4 MG TABLET 32.3999999999999986 MG PO ×2 (04:46→08:09)
[2024-04-23] MEDS: OMEPRAZOLE 20 MG CAPSULE.DR PO (04:46)
[2024-04-23] MEDS: ISOSORBIDE MONONITRATE 30 MG TAB.ER.24H PO (04:46)
[2024-04-23] MEDS: METOPROLOL SUCCINATE 50 MG TAB.ER.24H 100 MG PO (04:46)
[2024-04-23] MEDS: CLONIDINE HCL 0.1 MG TABLET 0.100000000000000006 MG PO ×2 (04:47→16:49)
[2024-04-23] MEDS: POTASSIUM CHLORIDE 10 MEQ ER TABLET 20 MEQ PO ×2 (04:47→16:49)
[2024-04-23 05:07] LABS: Basophils Percent Auto 0.1 % (0.2-2.0); Eosinophils Absolute Auto 0.1 10^3/uL (0.0-0.7); Eosinophils Percent Auto 0.7 % (0.9-7.0); Hematocrit 35.7 % (42.0-54.0); Immature Granulocytes Abs Auto 0.02 10^3/uL (0.00-0.03); Immature Granulocytes Pct Auto 0.3 % (0.0-0.5); Lymphocytes Percent Auto 14.3 % (20.5-60.0); Mean Corpuscular HGB Conc 33.6 g/dL (29.9-35.2); Mean Corpuscular Hemoglobin 34.1 pg (25.9-34.0); Mean Corpuscular Volume 101.4 fL (80.0-94.0); Mean Platelet Volume 11.2 fL (9.5-13.5); Monocytes Absolute Auto 1.1 10^3/uL (0.3-0.8); Monocytes Percent Auto 15.7 % (1.7-12.0); Neutrophils Absolute Auto 4.8 10^3/uL (1.4-6.5); Neutrophils Percent Auto 68.9 % (43.0-75.0); Platelet Count 158 10^3/uL (150-450); Red Blood Count 3.52 10^6/uL (4.70-6.10); Red Cell Distribution Width 12.5 % (11.0-15.0)
[2024-04-23 05:54] LABS: Alanine Aminotransferase 22 U/L (16-63); Albumin Globulin Ratio 1.1; Albumin Level 2.9 g/dL (3.4-5.0); Alkaline Phosphatase 71 U/L (46-116); Anion Gap 11.1; Aspartate Amino Transferase 16 U/L (15-37); BUN Creatinine Ratio 14.7; Bilirubin Total 1.1 mg/dL (0.2-1.0); Calcium 8.9 mg/dL (8.5-10.1); Carbon Dioxide 29.1 mmol/L (21.0-32.0); Chloride 104 mmol/L (98-107); Estimated GFR (African America >60 (>=60); Estimated GFR (Non-African Ame >60 (>=60); Globulin 2.7 g/dL; Glucose 101 mg/dL (74-106); Potassium 4.2 mmol/L (3.5-5.1); Sodium 140 mmol/L (136-145); Total Protein 5.6 g/dL (6.4-8.2)
--- NOTE | 2024-04-23 06:39 | P.PN_ITS ---
Progress Note: Subjective Subjective Interval history: Patient without complaints this morning, denies chest pain or shortness of breath Exam Constitutional Vital Signs, click to edit/add: Last Vital Signs Temp 97.4 F L 04/23/24 04:51 Pulse 68 04/23/24 06:00 Resp 20 04/23/24 04:51 BP 124/71 04/23/24 04:51 Pulse Ox 95 04/23/24 04:51 O2 Del Method Room Air 04/23/24 04:51 Documenting provider has reviewed patient's vital signs: yes Common normals: no apparent distress Respiratory Common normals: normal respiratory effort, no retractions and no use of accessory muscles Cardio Common normals: regular rate and regular rhythm; murmurs detected Heart sounds: murmur systolic GI Common normals: Normal to inspection, nondistended, normoactive bowel sounds present Extremity Common normals: normal to inspection (R leg in splint) and no clubbing, cyanosis or edema Progress Note: Objective Labs Labs: Short CBC 04/23/24 Range/Units 04:08 WBC 7.0 (4.0-11.0) 10^3/uL Hgb 12.0 L (14.0-18.0) g/dL Hct 35.7 L (42.0-54.0) % Plt Count 158 (150-450) 10^3/uL BMP 04/23/24 04:08 Sodium 140 Potassium 4.2 Chloride 104 Carbon Dioxide 29.1 BUN 14.0 Creatinine 0.95 Glucose 101 Calcium 8.9 Liver Function 04/23/24 Range/Units 04:08 Total Bilirubin 1.1 H (0.2-1.0) mg/dL AST 16 (15-37) U/L ALT 22 (16-63) U/L Alkaline Phosphatase 71 (46-116) U/L Albumin 2.9 L (3.4-5.0) g/dL Progress Note: A&P Assessment and Plan (1) Alcohol abuse: (2) Closed fracture of right patella: Qualifiers: Encounter type: initial encounter Fracture alignment: displaced Fracture morphology: transverse Qualified Code(s): S82.031A - Displaced transverse fracture of right patella, initial encounter for closed fracture (3) Syncope: Qualifiers: Syncope type: unspecified Qualified Code(s): R55 - Syncope and collapse (4) Elevated troponin: (5) Atrial flutter: Qualifiers: Atrial flutter type: unspecified Qualified Code(s): I48.92 - Unspecified atrial flutter (6) Essential hypertension: Plan A-Fib RVR with Respiratory distress, Uncontrolled hypertension resulting in demand ischemia and elevated High sensitivity troponin HST is elevated again this morning. The patient denies chest pain improved will repeat ECG, consult cardiology A-fib, rvr -currently rate controlled, continue with current medications, currently not anticoagulated secondary to history of severe gastrointestinal bleeding resulting in multiple surgeries to resolve Elevated Troponin likely related to uncontrolled hypertension and tachycardia with demand ischemia -see above Hypertension -stable today R Patellar fracture - consult to Ortho-surgery likely tomorrow ETOH abuse -add Wellbutrin Acute blood loss anemia - down 2 gams from baseline hgb fo 14. Occult blood is still pending Hyponatremia -improving Hypokalemia -resolved Mild PCM related to ETOH abuse - diet management Thrombocytopenia-follow as an outpatient History of severe gastrointestinal bleeding from the stomach resulting in major surgery. Continue PPI at discharge Elevated BNP-elevated today, no signs of CHF his lung exam is clear no peripheral edema, check on echocardiogram Admission status: Elevated troponin, uncontrolled hypertension, syncope admitted to ICU inpatient as medically necessary treatment and waiting for Testing (Echo), Medically Necessary treatment will span 2 midnights requiring inpatient status
--- NOTE | 2024-04-23 07:14 | P.DS_ITS ---
DS: Providers Provider Date of admission: 04/21/24 09:29 Primary care physician: Claudio Rg MD Consults: 04/20/24 16:49 Occupational Therapy Eval and Treat Routine Reason for consultation: Ambulatory dysfunction/weakness Physical Therapy Eval and Treat Routine Reason for consultation: Ambulatory dysfunction/weakness 04/20/24 16:59 Consult to Orthopedic Surgery Routine Consulting Provider: Lazaro Pepe Reason For Exam: Reason for consultation: lizandro Aware (R) patella fx Has provider been notified: Yes 04/22/24 07:26 Consult to Anesthesiology Routine Consulting Provider: Tereso Katz II Reason for consultation: can any anesth look at case to cleared for OR - spinal for patellar fx Has provider been notified: No 04/22/24 07:29 Consult to Cardiology Routine Reason for consultation: elevated Trop Has provider been notified: No DS: Diagnosis Discharge Diagnosis (1) Alcohol abuse: (2) Closed fracture of right patella: Qualifiers: Encounter type: initial encounter Fracture alignment: displaced Fracture morphology: transverse Qualified Code(s): S82.031A - Displaced transverse fracture of right patella, initial encounter for closed fracture (3) Syncope: Qualifiers: Syncope type: unspecified Qualified Code(s): R55 - Syncope and collapse (4) Elevated troponin: (5) Atrial flutter: Qualifiers: Atrial flutter type: unspecified Qualified Code(s): I48.92 - Unspecified atrial flutter (6) Essential hypertension: Plan A-Fib RVR with Respiratory distress, Uncontrolled hypertension resulting in demand ischemia and elevated High sensitivity troponin HST is elevated again this morning. Being at the time of discharge A-fib, rvr -currently rate controlled, continue with current medications, currently not anticoagulated secondary to history of severe gastrointestinal bleeding resulting in multiple surgeries to resolve Elevated Troponin likely related to uncontrolled hypertension and tachycardia with demand ischemia -see above L Hypertension -stable today R Patellar fracture - consult to Ortho-surgical intervention today ETOH abuse -add Wellbutrin Acute blood loss anemia - down 2 gams from baseline hgb fo 14. Occult blood is still pending Hyponatremia -improving Hypokalemia -resolved Mild PCM related to ETOH abuse - diet management Thrombocytopenia-follow as an outpatient History of severe gastrointestinal bleeding from the stomach resulting in major surgery. Continue PPI at discharge Elevated BNP-elevated today, no signs of CHF his lung exam is clear no peripheral edema, check on echocardiogram Admission status: Elevated troponin, uncontrolled hypertension, syncope admitted to ICU inpatient as medically necessary treatment and waiting for Testing (Echo), Medically Necessary treatment will span 2 midnights requiring inpatient status ? DS: Summary Hospital Course Hospital Course: Patient presented to the emergency room with a syncopal episode. He had been outside and been drinking beer. Not sure how long he was passed out. In ER found to have A-Fib RVR with Respiratory distress, Uncontrolled hypertension resulting in possible demand ischemia with elevated high-sensitivity troponin. Patient denied chest pain. His EKG and telemetry was unremarkable other than the atrial fibrillation. His high-sensitivity troponins were tracked and they were actually increasing at the time of discharge, consultation to cardiology is pending at this time. Echocardiogram reviewed later this morning. Patient would prefer to be discharged home with outpatient surgery for his patellar fracture. He was cleared by cardiology and anesthesiology. Moderate cardiac risk. Surgical intervention later today and if stable after the postoperative period he will be discharged home in improving condition. Medications see list. Follow-up with me the next week. Follow-up with cardiology and orthopedics within the next week also. Atrial fibrillation-patient is not anticoagulated secondary to severe peptic ulcer bleed resulting in several major surgeries to correct. Patient does have elevated BNP-this is likely related to holding his diuretics and giving IV hydration, no overt signs of congestive heart failure with clear lung exam and no peripheral edema. Discussed with PT - pt can safely use a wheeled walker for ambulation. Will need for ADL's like going tothe bathroom, getting food, outside mobility for goi ng to the store and ambulating around house Time Spent with Patient Time attestation: Total time spent providing and/or coordinating discharge services: Exam Constitutional Vital Signs, click to edit/add: Last Vital Signs Temp 97.4 F L 04/23/24 04:51 Pulse 68 04/23/24 06:00 Resp 20 04/23/24 04:51 BP 124/71 04/23/24 04:51 Pulse Ox 95 04/23/24 04:51 O2 Del Method Room Air 04/23/24 04:51 Documenting provider has reviewed patient's vital signs: yes Common normals: no apparent distress Respiratory Common normals: normal respiratory effort, no retractions and no use of accessory muscles Cardio Common normals: regular rate and regular rhythm; murmurs detected Heart sounds: murmur systolic GI Common normals: Normal to inspection, nondistended, normoactive bowel sounds present Extremity Common normals: normal to inspection (R leg in splint) and no clubbing, cyanosis or edema DS: Data Data Completed and Pending Labs on day of discharge: Labs from last 24 hours 04/23/24 04/22/24 04:08 04:10 WBC 7.0 RBC 3.52 L Hgb 12.0 L Hct 35.7 L MCV 101.4 H MCH 34.1 H MCHC 33.6 RDW 12.5 Plt Count 158 MPV 11.2 Neut % (Auto) 68.9 Lymph % (Auto) 14.3 L [place] % (Auto) 15.7 H Eos % (Auto) 0.7 L Baso % (Auto) 0.1 L Neut # (Auto) 4.8 Lymph # (Auto) 1.0 L [place] # (Auto) 1.1 H Eos # (Auto) 0.1 Baso # (Auto) 0.0 Abs Immat Gran (auto) 0.02 Imm/Tot Granulo (auto) 0.3 Sodium 140 Potassium 4.2 Chloride 104 Carbon Dioxide 29.1 Anion Gap 11.1 BUN 14.0 Creatinine 0.95 Est GFR ( Amer) >60 Est GFR (Non-Af Amer) >60 BUN/Creatinine Ratio 14.7 Glucose 101 Calcium 8.9 Total Bilirubin 1.1 H AST 16 ALT 22 Alkaline Phosphatase 71 Troponin I High Sens 198.0 H* 367.0 H* NT-Pro-B Natriuret Pep 2407.0 H* Total Protein 5.6 L Albumin 2.9 L Globulin 2.7 Albumin/Globulin Ratio 1.1 Discharge Plan Discharge Disposition: Home, Self-Care Condition: Good Assessment: s/p right patella ORIF Plan of Treatment: Crutches/limited weight bearing Discharge Medications: New clonidine HCl 0.1 mg Tablet 0.1 mg PO TID@0500,1100,1700 Qty: 90 11RF isosorbide mononitrate 30 mg Tablet Extended Release 24 Hr 30 mg PO DAILY@0500 Qty: 30 11RF bupropion HCl 150 mg Tablet Extended Release 24 Hr 150 mg PO QD Qty: 30 11RF cephalexin 500 mg capsule 500 mg PO Q6H 10 Days Qty: 40 0RF hydrocodone-acetaminophen 5-325 mg tablet 1 tab PO Q6H PRN (Reason: pain) Qty: 20 0RF Continued hydrochlorothiazide 25 mg tablet 25 mg PO DAILY lisinopril 20 mg tablet 20 mg PO BEDTIME omeprazole 20 mg capsule,delayed release(DR/EC) 20 mg PO DAILY simvastatin 20 mg tablet 20 mg PO BEDTIME terazosin 10 mg capsule 10 mg PO BEDTIME metoprolol succinate 100 mg tablet extended release 24 hr 100 mg PO DAILY PreserVision AREDS-2 250-90-40-1 mg capsule 1 tab PO BID Discontinued clonidine HCl 0.1 mg tablet 0.1 mg PO Q12H Activity: ambulate only with your walker Activity Detail: SAME DAY SURGERY INSTRUCTIONS 1. Do not drive or operate hazardous machinery. 2. Do not make important personal or business decisions for 24 hours. 3. Do not drink alcoholic beverages. 4. Do not smoke tobacco products. 5. Eat light foods initially (i.e., Jell-O, soups, etc) and drink plenty of fluids. 6. If your bandages become soaked with a bright red blood, place another dressing pad over your bandages. (Do not remove original bandage.) Call your surgeon for further instructions. A small amount of bright red blood is to be expected. 7. Limit your activities. Do not engage in heavy work until your surgeon gives you permission. 8. Report the following signs or any questions regarding your physical condition to your surgeon immediately: Excessive swelling of, or around, the wound area Redness Temperature of 100 (degrees F) or above Excessive pain 9. Call your surgeon, , for any questions regarding your surgery. 10. Call for an appointment to see your surgeon in 2 weeks in [place]. [phone] SPECIAL INSTRUCTIONS AND MEDICATIONS 1. Elevate high. 2. Move toes/ankle to improve circulation. 3. Use prescribed pain pill as needed. Take tylenol if pain medication not needed. 4. Do not get cast wet 6. Use walker Diet: advance to your usual diet Print Language: Nigerien Patient Instructions: Cephalexin (By mouth), Bupropion (By mouth), Hydrocodone/Acetaminophen (By mouth), Isosorbide Mononitrate (By mouth) (Imdur, Imdur ER, Ismo), Abuse of Alcohol (DC), Patellar Fracture (DC) Forms: Portal Instructions Follow Up Appointments: June 03 @ 10:10am with [facility] [address] [place] [address] , [place] [phone] Discharge Date/Time: 04/23/24 17:30
[2024-04-23] MEDS: BUPROPION HCL 150 MG XL TABLET 24H PO (08:09)
[2024-04-23] MEDS: LACTATED RINGER'S SOLUTION 1,000 ML 50 ML IV ×2 (11:35→14:20)
--- NOTE | 2024-04-23 12:00 | FL_ITS ---
[address] [address] Patient Name: JANA MUKHERJEE MRN: [id number] date: 1945 Sex: M Assigned Patient Location: [place] Current Patient Location: Accession/Order Number: [id number] Exam Date: 04/23/2024 13:20 Report Date: 04/26/2024 06:05 At the request of: BLADIMIR CHAUDHRY Procedure: FL fluoroscopy <1hr NON-READ EXAM: FL fluoroscopy <1hr NON-READ HISTORY: TECHNIQUE: FINDINGS: Please see Operative Report. Electronically authenticated by: RADIOLOGIST NO Date: 04/26/2024 06:05
[2024-04-23] MEDS: CEFAZOLIN SODIUM/DEXTROSE,ISO 2 GM/50 ML PIGGYBACK IV (12:41)
--- NOTE | 2024-04-23 13:03 | PM.ORPRC ---
Procedure Note Date of procedure: 04/23/24 Pre-op diagnosis: Right patella fracture Post-op diagnosis: same as pre-op Procedure: Operation performed: Exploring and right patella fracture Operative procedure: After informed consent was obtained the patient was brought to the operating room where spinal anesthetic was administered. A well-padded proximal thigh tourniquet was placed and the right leg was prepped and draped in the usual sterile fashion. Leg was elevated, exsanguinated, and the tourniquet was inflated to 300 mmHg. A 12 cm incision was made directly overlying the patella. Blunt dissection was carried down through soft tissue and hemostasis achieved with Bovie. Hematoma was present within the prepatellar bursa and this was irrigated and hematoma was suctioned out. There was no disruption to the soft tissue deep to the fascia as typically would be the case an acute fracture. No abnormality was visualized to the prepatellar soft tissue plate. The site of the articular step-off was localized on the lateral view and a 15 blade was used to incise through the soft tissue. Domínguez elevator was used to form a subperiosteal dissection. No fracture line was identified. Arthrotomy was performed 1 cm at the articular cartilage step-off and there was no blood within the joint. The articular cartilage step-off was identified and found to be 1 mm. Flexion and extension was performed of the knee past 120 degrees and there was no separation of the patella. All of these indicated a subacute fracture which was healing. Because articular cartilage step-off was 1 mm the decision was made that to perform an osteotomy and then realign articular cartilage for a 1 mm change would not be benefiting the patient. The tourniquet was deflated. The knee joint and soft tissue were again irrigated. A Arthrex suture tape was used to close the prepatellar tissue plate over the patella in a running locking fashion. Wound was closed in standard fashion in layers. Sterile dressing was placed. Knee immobilizer was placed. Patient was brought to the recovery room in stable condition. There were no intraoperative or immediate postoperative complications. Anesthesia: spinal Surgeon: Lazaro Pepe Estimated blood loss (mL): 5 Pathology: none sent Condition: stable Disposition: PACU
[2024-04-23] MEDS: TERAZOSIN HCL 5 MG CAPSULE 10 MG PO (16:49)
[2024-04-23] MEDS: LISINOPRIL 20 MG TABLET PO (16:49)
[2024-04-23] MEDS: SIMVASTATIN 20 MG 1 EACH PO (16:49)
[2024-04-23] MEDS: ENOXAPARIN SODIUM 40 MG/0.4 ML SYRINGE SUBQ (16:53)
--- NOTE | 2024-04-23 18:49 | NUTR.NU ---
Pt was admitted w/right patellar fx and mild PCM r/t EtOH abuse. He has h/o GI bleed requiring sx. PO intakes of regular diet are generally 100% and appear to meet pt's estimated nutrient requirements. Regular diet is appropriate as tolerated; encourage balanced diet and healthy food choices.
--- NOTE | 2024-04-24 14:20 | CM.DCFOLLOWU ---
1st attempt 04/24/24, no answer
--- NOTE | 2024-04-25 12:23 | CM.DCFOLLOWU ---
Person spoke with: patient How are you feeling? well How is your pain? none Did you understand your discharge instructions? yes Do you have any questions about your discharge instructions? no Were you given any prescriptions at discharge? yes Were you able to get your prescriptions filled? yes Do you understand how to take your medications as ordered? yes Do you have any questions about your follow up appointment and do you plan to keep your follow up appointment? no questions, follow up reviewed Is there anything else that you would like to discuss? no Questions/Comments/Concerns/Other: no
== END 2024-04-23 17:30 | disposition home or self-care (01) | DRG 309 ==
LOC: ER 17:11 → ICU 17:22 → MS 04-21 18:34
PROVIDERS: Internal Medicine; Orthopaedic Surgery; Personal Emergency Response Attendant; Registered Nurse; Admitting Provider Family Medicine; Emergency Provider Emergency Medicine Emergency Medical Services; PCP Family Medicine; Visit Provider Family Medicine
PROC: 0Y9F0ZZ Drainage of Right Knee Region, Open Approach (ICD-10-PCS; principal; 2024-04-23 13:30)
DX: I48.92 Unspecified atrial flutter (principal); D62 Acute posthemorrhagic anemia; S82.031A Displaced transverse fracture of right patella, initial encounter for closed fracture; E87.1 Hypo-osmolality and hyponatremia; E44.1 Mild protein-calorie malnutrition; I24.89 Other forms of acute ischemic heart disease; I5A Non-ischemic myocardial injury (non-traumatic); I48.91 Unspecified atrial fibrillation; R06.03 Acute respiratory distress; S80.01XA Contusion of right knee, initial encounter; I10 Essential (primary) hypertension; E87.6 Hypokalemia; R55 Syncope and collapse; R79.89 Other specified abnormal findings of blood chemistry; F10.10 Alcohol abuse, uncomplicated; S00.93XA Contusion of unspecified part of head, initial encounter; Z68.31 Body mass index [BMI] 31.0-31.9, adult; Y90.6 Blood alcohol level of 120-199 mg/100 ml; W18.39XA Other fall on same level, initial encounter; D69.6 Thrombocytopenia, unspecified; Z87.11 Personal history of peptic ulcer disease; Z87.891 Personal history of nicotine dependence
CPT/HCPCS: 36415; 70450; 71101; 72125; 73562; 76000; 80053; 80320; 83880; 84484; 85025; 85610; 85730; 90471; 90715; 93005; 93306; 94667; 94668; 94761; 96361; 96372; 96374; 96375; 97161; 97165; 99285; G0328; G0378; J2704

== ENCOUNTER 2024-05-06 12:23 | Outpatient (OUT) | payer MEDICARE, OTHER, SELFPAY ==
--- NOTE | 2024-05-06 | XR_ITS ---
[address] [address] Patient Name: JANA MUKHERJEE MRN: [id number] date: 1945 Sex: M Assigned Patient Location: Current Patient Location: Accession/Order Number: [id number] Exam Date: 05/06/2024 12:25 Report Date: 05/07/2024 10:37 At the request of: BLADIMIR CHAUDHRY Procedure: XR knee RT 2V PROCEDURE: XR knee RT 2V HISTORY: RIGHT KNEE PAIN COMPARISON: XR knee bilateral 04/20/2024 FINDINGS: BONES:Transverse fracture through the patella with mild anterior displacement of the distal fragment; unchanged. SOFT TISSUES:Anterior soft tissue swelling suggestive of bursitis. EFFUSION:Small joint effusion. OTHER: Negative. XR/XR knee RT 2V IMPRESSION: 1. Stable, mildly displaced patella fracture without radiographic evidence of early bone healing. 2. Prepatellar bursitis; improved. 3. Small joint effusion; stable to slightly improved. Electronically authenticated by: BLADIMIR CARABALLO Date: 05/07/2024 10:37
== END 2024-05-06 12:24 | disposition home or self-care (01) ==
LOC: EC 12:23
PROVIDERS: PCP Family Medicine; Visit Provider Orthopaedic Surgery
DX: S82.021D Displaced longitudinal fracture of right patella, subsequent encounter for closed fracture with routine healing (principal); M25.461 Effusion, right knee
CPT/HCPCS: 73560

== ENCOUNTER 2024-05-20 08:44 | Outpatient (OUT) | payer MEDICARE, OTHER, SELFPAY ==
--- NOTE | 2024-05-20 | XR_ITS ---
The [address] [address] Patient Name: JANA MUKHERJEE MRN: [id number] date: 1945 Sex: M Assigned Patient Location: Current Patient Location: Accession/Order Number: [id number] Exam Date: 05/20/2024 08:46 Report Date: 05/21/2024 07:14 At the request of: BLADIMIR CHAUDHRY Procedure: XR knee RT 2V PROCEDURE: XR knee RT 2V HISTORY: RIGHT KNEE PAIN COMPARISON: XR knee right 05/06/2024 FINDINGS: BONES:Stable, mildly displaced transverse/comminuted fracture of patella with cortical step off along the articular surface. Minimally increased density of the fracture lines. No appreciable callus formation along the margins. SOFT TISSUES:Anterior soft tissue swelling. EFFUSION:Small joint effusion. OTHER: Negative. XR/XR knee RT 2V IMPRESSION: 1. Grossly stable appearance of the knee except for minimally increased density of the fracture line suggesting some component of early bone healing. Electronically authenticated by: BLADIMIR CARABALLO Date: 05/21/2024 07:14
--- OUTSIDE RECORDS SUMMARY | 2024-05-20 09:06 | XMS_ITS | CCD ---
Demographics Address [facility] [address] [place] [address] Preferred Language en Marital Status Yazdanism Affiliation Unknown Race Unknown Ethnic Group Unknown Author Organization [facility] Care Team Providers Care Career Education Teacher Name Role Phone PHYSICIAN, DEFAULT Unavailable Unavailable PHYSICIAN, DEFAULT Unavailable Unavailable DR JACQUE RG Attending Unavailable DR JACQUE RG Consulting DR JACQUE Recio Primary Care Unavailable DR JACQUE RG Admitting Unavailable Jacque Rg MD Primary Care Provider [phone] JOHN RINALDI Attending Unavailable JOHN RINALDI Attending Unavailable JOHN RINALDI Attending Unavailable JOHN RINALDI Attending Unavailable JOHN RINALDI Attending Unavailable JOHN RINALDI Attending Unavailable MINE SANTOS Attending Unavailable MINE SANTOS Attending Unavailable Allergies Allergy Classification Reported Allergen(s) Allergy Type Date of Onset Reaction(s) Facility (2 sources) NSAIDs; Translations: [NSAIDS (NON-STEROIDAL ANTI-INFLAMMATOR Y DRUG)] Drug allergy (disorder) 5 [facility] Repository (2 sources) Ibuprofen Drug Allergy 3 [facility] Healthcare (2 sources) Non-steroidal anti-inflammator y agent Drug Intolerance 5 [facility] Medications Current Medications Medication Drug Class(es) Dates Sig (Normalized) Sig (Original) ciprofloxacin 500 mg oral tablet (2 sources) Quinolone Antimicrobial take 1 tablet by mouth twice daily ciprofloxacin (Cipro) 500 MG tablet Take 1 tablet twice a day by oral route. 0 Active cloNIDine hydrochloride 0.1 mg oral tablet (2 sources) Central alpha-2 Adrenergic Agonist take 1 tablet by mouth twice daily cloNIDine (Catapres) 0.1 MG tablet Take 1 tablet twice a day by oral route. 0 Active hydroCHLOROthiazide 25 mg oral tablet (2 sources) Thiazide Diuretic take 1 tablet by mouth in the morning hydroCHLOROthiazide (HYDRODiuril) 25 MG tablet Take 1 tablet by mouth in the morning. 0 Active ketorolac tromethamine 5 mg/ml ophthalmic solution (2 sources) Nonsteroidal Anti-inflammatory Drug, Cyclooxygenase Inhibitor Start: 11-01-20 take 1 drop(s) into the eye(s) twice daily at bedtime ketorolac (Acular) 0.5 % ophthalmic solution INSTILL 1 DROP INTO AFFECTED EYE(S) TWICE A DAY ( IN THE MORNING AND BEFORE BEDTIME ) 0 11/01/2023 Active labetalol hydrochloride 200 mg oral tablet (2 sources) beta-Adrenergic Marbin take 1 tablet by mouth twice daily labetalol (Normodyne) 200 MG tablet Take 1 tablet twice a day by oral route. 0 Active lisinopril 20 mg oral tablet (2 sources) Angiotensin Converting Enzyme Inhibitor take 1 tablet by mouth once daily lisinopril 20 MG tablet Take 1 tablet every day by oral route for 30 days. 0 Active 24 hr metoprolol succinate 100 mg extended release oral tablet (4 sources) beta-Adrenergic Marbin take 1 tablet by mouth every twenty-four hours in the morning metoprolol succinate XL (Toprol-XL) 100 MG 24 hr tablet Take 1 tablet by mouth in the morning. 0 Active take 1 tablet by mouth twice kin ly metoprolol tartrate (Lopressor) 50 MG tablet Take 1 tablet twice a day by oral route for 30 days. 0 Active naproxen 500 mg oral tablet (2 sources) Nonsteroidal Anti-inflammatory Drug naproxen (Naprosy n) 500 MG tablet ofloxacin 3 mg/ml ophthalmic solution (2 sources) Quinolone Antimicrobial Start: take 1 drop(s) into the eye(s) five times daily ofloxacin (Ocuflox) 0.3 % ophthalmic solution INSTILL 1 DROP INTO RIGHT EYE 5 TIMES DAILY. START 1 DAY BEFORE SURGERY & CONTINUE AFTER DIRECTED 0 11/01/2023 Active omeprazole 20 mg delayed release oral capsule (2 sources) Proton Pump Inhibitor take 1 capsule by mouth once daily omeprazole (PriLOSEC) [address] capsule Take 1 capsule every day by oral route for 30 days. 0 Active prednisoLONE acetate 10 mg/ml ophthalmic suspension (2 sources) Corticosteroid Start: prednisoLONE acetate (Pred-Forte) 1 % ophthalmic suspension PLEASE SEE ATTACHED FOR DETAILED DIRECTIONS 0 11/01/2023 Active simvastatin 20 mg oral tablet (2 sources) HMG-CoA Reductase Inhibitor take 1 tablet by mouth in the morning simvastatin (Zocor) 20 MG tablet Take 1 tablet by mouth in the morning. 0 Active terazosin 10 mg oral capsule (2 sources) alpha-Adrenergic Marbin take 1 capsule by mouth once daily terazosin (Hytrin) 10 MG capsule Take 1 capsule every day by oral route. 0 Active Problems Problem Classification Problem Date Documented Date Episodic/Chronic Cardiac dysrhythmias (1 source) Unspecified atrial fibrillation; Translations: [UNSPECIFIED ATRIAL FIBRILLATION] Onset: 07-01-2022 Chronic Cataract (7 sources) Bilateral age-related nuclear cataracts; Translations: [Age-related nuclear cataract, bilateral] Onset: 09-26-2023 09-26-2023 Chronic Coronary atherosclerosis and other heart disease (1 source) Atherosclerotic heart disease of [place] coronary artery without angina pectoris; Translations: [ASHD SHUNGNAK CA W/O ANGINA PECTORIS] Onset: 07-01-2022 Chronic Diabetes mellitus without complication (1 source) Other abnormal glucose; Translations: [OTHER ABNORMAL GLUCOSE] Onset: 07-01-2022 Episodic Disorders of lipid metabolism (6 sources) Hyperlipidemia, unspecified; Translations: [HYPERLIPIDEMIA UNSPECIFIED] Onset: 06-30-2022 Chronic Essential hypertension (2 sources) Essential (primary) hypertension; Translations: [Essential (primary) hypertension] Onset: 05-06-2024 Chronic Heart valve disorders (1 source) Rheumatic disorders of both mitral and aortic valves; Translations: [RHEUMATIC D/O MITRAL AORTIC VALVES] Onset: 07-01-2022 Chronic Inflammatory conditions of male genital organs (1 source) Inflammatory disease of prostate, unspecified; Translations: [INFLAMMATORY DISEASE PROSTATE UNS] Onset: 07-01-2022 Episodic Other circulatory disease (1 source) Orthostatic hypotension; Translations: [ORTHOSTATIC HYPOTENSION] Onset: 07-01-2022 Episodic Other eye disorders (2 sources) Dry eyes; Translations: [Dry eye syndrome of bilateral lacrimal glands] Onset: 09-26-2023 09-26-2023 Episodic Other screening for suspected conditions (not mental disorders or infectious disease) (3 sources) Encounter for screening for malignant neoplasm of prostate; Translations: [Other specified abnormal findings of blood chemistry] Onset: 07-01-2022 Episodic Retinal detachments; defects; vascular occlusion; and retinopathy (2 sources) Nonexudative age-related macular degeneration; Translations: [Nonexudative age-related macular degeneration, bilateral, intermediate dry stage] Onset: 09-26-2023 09-26-2023 Chronic Syncope (2 sources) Syncope and collapse; Translations: [Syncope and collapse] Onset: 05-06-2024 Episodic Unclassified (2 sources) Other persistent atrial fibrillation; Translations: [Other persistent atrial fibrillation] Onset: 11-22-2022 Results Test Name Value Interpretation Reference Range Facility Office Visiton 05-06-2024 Follow-up visit [id number] Jana Williamson 1945 M [facility] Provider Department Center 05/06/2024 MINE REILLY Family History Problem Relation Age of Onset Stroke Father Other Brother Diabetes Brother Family Status - Relation Status Age at Father Brother Level of Service:56856 DC OFFICE/OUTPATIENT ESTABLISHED MOD MDM 30 MIN Normal [facility] Office Visiton 11-24-2023 Follow-up visit [id number] Jana Williamson 1945 [facility] Problem Relation Age of Onset Stroke Father Other Brother Diabetes Brother Family Status - Relation Status Age at Father Brother Level of Service:87346 DC OFFICE/OUTPATIENT ESTABLISHED LOW MDM 20 MIN Normal [facility] INSULINon 07-01-2022 Insulin 11.1 uIU/mL Normal 2.6-24.9 [facility] Comment on above: Performed By: #### I NSULIN #### [facility] [address] [place] [address] Dr. Linda Epps T4, T3U, FTI LABCORPon 07-01 Free Thyroxine Index 2.0 Normal 1.2-4.9 [facility] Comment on above: Performed By: #### T HYLC #### [facility] [address] [place] [address] Dr. Linda Epps T3 Uptake 30 % Normal 24-39 [facility] Comment on above: Performed By: #### T HYLC #### [facility] [address] [place] [address] Dr. Linda Epps T4 [Mass/Vol] 6.8 ug/dL Normal 4.5-12.0 [facility] Comment on above: Performed By: #### T HYLC #### [facility] [address] [place] [address] Dr. Linda Epps CBC AUTO DIFFon 06-30-2022 BASO # 0.0 103/ul Normal 0.0-0.1 [facility] Comment on above: Performed By: #### C BC #### [facility] [address] [place] [address] Dr. Linda Epps Basophils/100 WBC (Bld) 0.5 % Normal 0.2-2.0 [facility] Comment on above: Performed By: #### C BC #### [facility] [address] [place] [address] Dr. Linda Epps EO # 0.1 103/ul Normal 0.0-0.7 [facility] Comment on above: Performed By: #### C BC #### [facility] [address] [place] [address] Dr. Linda Epps Eosinophils/100 WBC (Bld) 1.4 % Normal 0.9-7.0 [facility] Comment on above: Performed By: #### C BC #### [facility] [address] [place] [address] Dr. Linda Epps Erythrocyte distribution width (RBC) [Ratio] 11.6 % Normal 11.0-15.0 [facility] Comment on above: Performed By: #### C BC #### [facility] [address] [place] [address] Dr. Linda Epps Hematocrit (Bld) [Volume fraction] 42.3 % Normal 42.0-54.0 [facility] Comment on above: Performed By: #### C BC #### [facility] [address] [place] [address] Dr. Linda Epps Hemoglobin (Bld) [Mass/Vol] 14.4 g/dL Normal 14.0-18.0 [facility] Comment on above: Performed By: #### C BC #### [facility] [address] [place] [address] Dr. Linda Epps IG # 0.01 10e3/ul Normal 0.00-0.03 [facility] Comment on above: Performed By: #### C BC #### [facility] [address] [place] [address] Dr. Linda Epps IG % 0.2 % Normal 0.0-0.5 [facility] Comment on above: Performed By: #### C BC #### [facility] [address] [place] [address] Dr. Linda Epps LYMPH # 0.9 103/ul Critically low 1.2-3.8 [facility] Comment on above: Performed By: #### C BC #### [facility] [address] [place] [address] Dr. Linda Epps Lymphocytes/100 WBC (Bld) 19.9 % Critically low 20.5-60.0 [facility] Comment on above: Performed By: #### C BC #### [facility] [address] [place] [address] Dr. Linda Epps MANUAL DIFF REQ NO Normal [facility] Comment on above: Performed By: #### C BC #### [facility] [address] [place] [address] Dr. Linda Epps MCH (RBC) [Entitic mass] 33.9 pg Normal 25.9-34.0 [facility] Comment on above: Performed By: #### C BC #### [facility] [address] [place] [address] Dr. Linda Epps MCHC (RBC) [Mass/Vol] 34.0 g/dL Normal 29.9-35.2 [facility] Comment on above: Performed By: #### C BC #### [facility] [address] [place] [address] Dr. Linda Epps MCV (RBC) [Entitic vol] 99.5 fL Critically high 80.0-94.0 [facility] Comment on above: Performed By: #### C BC #### [facility] [address] [place] [address] Dr. Linda Epps MONO # 0.4 103/ul Normal 0.3-0.8 [facility] Comment on above: Performed By: #### C BC #### [facility] [address] [place] [address] Dr. Linda Epps Monocytes/100 WBC (Bld) 9.5 % Normal 1.7-12.0 [facility] Comment on above: Performed By: #### C BC #### [facility] [address] [place] [address] Dr. Linda Epps NEUT # 3.0 103/ul Normal 1.4-6.5 [facility] Comment on above: Performed By: #### C BC #### [facility] [address] [place] [address] Dr. Linda Epps Neutrophils/100 WBC (Bld) 68.5 % Normal 43.0-75.0 [facility] Comment on above: Performed By: #### C BC #### [facility] [address] [place] [address] Dr. Linda Epps Platelet mean volume (Bld) [Entitic vol] 10.7 fL Normal 9.5-13.5 [facility] Comment on above: Performed By: #### C BC #### [facility] [address] [place] [address] Dr. Linda Epps PLT 156 103/ul Normal 150-450 [facility] Comment on above: Performed By: #### C BC #### [facility] [address] [place] [address] Dr. Linda Epps RBC 4.25 106/ul Critically low 4.70-6.10 [facility] Comment on above: Performed By: #### C BC #### [facility] [address] [place] [address] Dr. Linda Epps WBC 4.4 103/ul Normal 4.0-11.0 [facility] Comment on above: Performed By: #### C BC #### [facility] [address] [place] [address] Dr. Linda Epps GLYCOHEMOGLOBIN A1Con 2021 ADA RECOMMENDATION SEE BELOW Normal [facility] Comment on above: Result Comment: ADA RECOMMENDED LIMIT 4.0 - 6.0 ADA THERAPEUTIC TARGET < 7.0 ACTION SUGGESTED > 7.0 Performed By: #### A 1C #### [facility] [address] [address] [address] Linda Epps Glucose [Mass/Vol] 123 mg/dL Normal [facility] Comment on above: Performed By: #### A 1C #### [facility] [address] [address] [address] Linda Epps HbA1c (Bld) [Mass fraction] 5.9 % Normal 4.5-6.2 [facility] Comment on above: Performed By: #### A 1C #### [facility] [address] [place] [address] Dr. Linda Epps LIPID PROFILEon 06-30-2022 CHOL-HDL RATIO NORM SEE BELOW Normal [facility] Comment on above: Result Comment: 3.3 - 4.4 LOW RISK 4.4 - 7.1 AVERAGE RISK 7.1 - 11.0 MODERATE RISK >11.0 HIGH RISK Performed By: #### T SH, URIC, LIPID, CMP #### [facility] [address] [address] [address] Linda Epps Cholesterol [Mass/Vol] 154 mg/dL Normal <=200 [facility] Comment on above: Performed By: #### T SH, URIC, LIPID, CMP #### [facility] [address] [address] [address] Linda Epps Cholesterol in HDL [Mass/Vol] 53 mg/dL Normal 40-60 [facility] Comment on above: Performed By: #### T SH, URIC, LIPID, CMP #### [facility] [address] [address] [address] Linda Epps Cholesterol in LDL [Mass/Vol] 76.6 mg/dL Normal [facility] Comment on above: Performed By: #### T SH, URIC, LIPID, CMP #### [facility] [address] [place] [address] Dr. Linda Epps Cholesterol.total/Cho lesterol in HDL [Mass ratio] 2.9 {ratio} Normal [facility] Comment on above: Performed By: #### T SH, URIC, LIPID, CMP #### [facility] [address] [address] [address] Linda Epps HDL NORMAL > or = 60 mg/dl - LOW CARDIOVASCULAR RISK <40 mg/dl - HIGH CARDIOVASCULAR RISK Normal [facility] Comment on above: Performed By: #### T SH, URIC, LIPID, CMP #### [facility] [address] [address] [address] Linda Epps LDL CALC NORMAL SEE BELOW Normal [facility] Comment on above: Result Comment: <100 mg/dl OPTIMAL 100 - 129 mg/dl NEAR OR ABOVE OPTIMAL 130 - 159 mg/dl BORDERLINE HIGH 160 - 189 mg/dl HIGH >190 mg/dl VERY HIGH Performed By: #### T SH, URIC, LIPID, CMP #### [facility] [address] [address] [address] Linda Epps Triglyceride [Mass/Vol] 122 mg/dL Normal <=150 [facility] Comment on above: Performed By: #### T SH, URIC, LIPID, CMP #### [facility] [address] [address] [address] Linda Epps VLDL CALC 24.4 mg/dL Normal [facility] Comment on above: Performed By: #### T SH, URIC, LIPID, CMP #### [facility] [address] [address] [address] Linda Epps PROF 14(COMP METB)on 022 Albumin [Mass/Vol] 3.9 g/dL Normal 3.4-5.[address] [facility] Comment on above: Performed By: #### T SH, URIC, LIPID, CMP #### [facility] [address] [address] [address] Linda Epps Albumin/Globulin [Mass ratio] 1.6 {ratio} Normal [facility] Comment on above: Performed By: #### T SH, URIC, LIPID, CMP #### [facility] [address] [address] [address] Linda Epps ALP [Catalytic activity/Vol] 72 U/L Normal 46-116 [facility] Comment on above: Performed By: #### T SH, URIC, LIPID, CMP #### [facility] [address] [address] [address] Linda Epps ALT [Catalytic activity/Vol] 40 U/L Normal 16-63 [facility] Comment on above: Performed By: #### T SH, URIC, LIPID, CMP #### [facility] [address] [address] [address] Linda Epps Anion gap [Moles/Vol] 11.7 mmol/L Normal Th [facility] Comment on above: Performed By: #### T SH, URIC, LIPID, CMP #### [facility] [address] [place] [address] Dr. Linda Epps AST [Catalytic activity/Vol] 27 U/L Normal 15-37 [facility] Comment on above: Performed By: #### T SH, URIC, LIPID, CMP #### [facility] [address] [place] [address] Dr. Linda Epps Bilirubin [Mass/Vol] 0.8 mg/dL Normal 0.2-1.0 [facility] Comment on above: Performed By: #### T SH, URIC, LIPID, CMP #### [facility] [address] [place] [address] Dr. Linda Epps Calcium [Mass/Vol] 8.9 mg/dL Normal 8.5-10.[address] [facility] Comment on above: Performed By: #### T SH, URIC, LIPID, CMP #### [facility] [address] [place] [address] Dr. Linda Epps Chloride [Moles/Vol] 102 mmol/L Normal 98-107 [facility] Comment on above: Performed By: #### T SH, URIC, LIPID, CMP #### [facility] [address] [place] [address] Dr. Linda Epps CO2 [Moles/Vol] 30.8 mmol/L Normal 21.0-32.0 [facility] Comment on above: Performed By: #### T SH, URIC, LIPID, CMP #### [facility] [address] [address] [address] Linda Epps Creatinine [Mass/Vol] 0.93 mg/dL Normal 0.70-1.30 [facility] Comment on above: Performed By: #### T SH, URIC, LIPID, CMP #### [facility] [address] [address] [address] Linda Epps EGFR-AF ARMENIAN >60 Normal >=60 [facility] Comment on above: Performed By: #### T SH, URIC, LIPID, CMP #### [facility] [address] [address] [address] Linda Epps EGFR-NON AF ARMENIAN >60 Normal >=60 [facility] Comment on above: Performed By: #### T SH, URIC, LIPID, CMP #### [facility] [address] [place] [address] Dr. Linda Epps Globulin (S) [Mass/Vol] 2.4 g/dL Normal [facility] Comment on above: Performed By: #### T SH, URIC, LIPID, CMP #### [facility] [address] [address] [address] Lnida Epps Glucose [Mass/Vol] 131 mg/dL Critically high 74-106 [facility] Comment on above: Performed By: #### T SH, URIC, LIPID, CMP #### [facility] [address] [place] [address] Dr. Linda Epps Potassium [Moles/Vol] 3.5 mmol/L Normal 3.5-5.1 [facility] Comment on above: Performed By: #### T SH, URIC, LIPID, CMP #### [facility] [address] [address] [address] Linda Epps Protein [Mass/Vol] 6.3 g/dL Critically low 6.4-8.2 [facility] Comment on above: Performed By: #### T SH, URIC, LIPID, CMP #### [facility] [address] [address] [address] Linda Epps Sodium [Moles/Vol] 141 mmol/L Normal 136-[address] [facility] Comment on above: Performed By: #### T SH, URIC, LIPID, CMP #### [facility] [address] [address] [address] Linda Epps Urea nitrogen [Mass/Vol] 10.0 mg/dL Normal 7.0-18.0 [facility] Comment on above: Performed By: #### T SH, URIC, LIPID, CMP #### [facility] [address] [address] [address] Linda Epps Urea nitrogen/Creatinine [Mass ratio] 10.8 mg/mg Normal [facility] Comment on above: Performed By: #### T SH, URIC, LIPID, CMP #### [facility] [address] [address] [address] Linda Epps TSHon 06-30-2022 TSH 2.135 uIU/mL Normal 0.358-3.740 [facility] Comment on above: Performed By: #### T SH, URIC, LIPID, CMP #### [facility] [address] [address] [address] Linda Epps URIC ACID SERUMon 06-30-2022 Urate [Mass/Vol] 6.3 mg/dL Normal 3.5-7.2 [facility] Comment on above: Performed By: #### T SH, URIC, LIPID, CMP #### [facility] [address] [place] [address] Dr. Linda Epps OCC BLD IMMUNO SCREENon 06-20 OCCULT BLOOD Negative Normal NEGATIVE [facility] Comment on above: Performed By: #### O BSCRN #### [facility] [address] [address] [address] Linda Epps Consultation Noteon 09-01-20 Consultation Note [id number]:127 Normal [facility] Provider Letter FTon 08-13 Provider Letter [facility] Jacque Rg [address] [facility] [place] [address] Re: JANA WILLIAMSON Date of : 1945 Thank you for your referral of Jana Williamson who was seen on consultation on 08/06/2020 for left lower quadrant pain. I have enclosed my consultation notes for your review. Sincerely, Jadiel Epperson MD General Surgery Normal [facility] Historical Records Officeon 08-07-2020 Historical Records Office [id number]:127 Normal [facility] RAD - CT Reporton 08-07-2020 RAD - CT Report [id number]#[id number]:127 Normal [facility] Ambulatory Clinical Summaryo n 08-06-2020 Ambulatory Clinical Summary {[id number] Normal [facility] General Surgery Office/Clini c Noteon 08-06-2020 General Surgery Office/Clinic Note Chief Complaint referral for LLQ pain HPI Staff 75 year old male presents on consultation from Dr. Rg for LLQ pain when lying down. Pain is better when standing up. Present for several months. Denies nausea or vomiting. No diarrhea or change in bowels. PCP prescribed Levsin, which has been helpful. CT ABD/pelvis completed 08/04- unremarkable. History of Present Illness 75 yo male with multiple medical problems, h/o midline laparotomy x 3 for bleeding ulcers; reports several month h/o intermittent lateral, left lower quadrant abdominal pain, described as a constant ache that wakes him from sleep in the middle of the night; relieved after about 20 minutes when he sits up; no injury to area, no skin changes, no abdominal bulge; recent abd/pelvic ct scan reviewed, wnl; denies bowel changes, reports bm every other day; started on levsin with some relief; ct with evidence of lower back arthritic changes; has h/o spinal stenosis; no pain with eating, no N/V; no blood in stools; has never had a colonoscopy, but does not want to have one now. Review of Systems ROS - Provider Constitutional: no fever, no sweats, no weight loss. Eyes: no glasses, no blurred vision, no visual loss. ENMT: no dentures, no hoarseness, no swallowing difficulties, no hearing loss, no ear infection(s), no nose bleeds. Cardiovascular: high blood pressure, no chest pain, regular heartbeat, yes heart murmur. Respiratory: no shortness of breath, no cough, no asthma, no wheezing. Gastrointestinal: no nausea, no vomiting, no diarrhea, no constipation, no blood in stool, no change in bowel habits, mild abdominal pain, no hepatitis. Genitourinary: no kidney stones, no urine infection, no dysuria. Musculoskeletal: moderate pain, no weakness. Skin: no changing moles, no rash, no skin lumps. Neurologic: no seizures, no epilepsy, no headache. Psychiatric: no emotional or psychiatric problem. Heme/Lymph: no bleeding problems, no anemia, no blood clots, no transfusions. Allergy/Immunologic : no swollen lymph nodes/glands, no IV drug abuse. Other: Additional ROS info: Except as noted in the above Review of Systems and in the History of Present Illness, all other systems have been reviewed and are negative or noncontributory. Physical Exam Vitals & Measurements T: 36.5 ?C (Tympanic) HR: 68(Peripheral) RR: 16 BP: 110/60 HT: 172.7 cm HT: 172.72 cm WT: 94.8 kg WT: 94.8 kg BMI: 31.78 HEENT: normal conjunctiva, sclera clear, no scleral icterus, EOM intact, PERRLA, oral mucosa moist without lesions. Neck: trachea midline, no mass, symmetric, no thyromegaly or nodules, no adenopathy Respiratory: lungs CTA, respirations non labored. Cardiovascular: regular rate and rhythm, no murmur, no pedal edema or varicosities. Gastrointestinal: obese; protuberant; extensive midline abdominal scarring; no fascial defect or palpable hernia sac; soft, non distended, no tenderness, no masses, no palpable hernias, diastasis recti yes, no hepatosplenomegaly; normal bs Lymphatic: no cervical adenopathy, no axillary adenopathy, Musculoskeletal: normal gait, digits and nails without infection, nodes, cyanosis, clubbing. Skin: no rashes, no lesions, no ulcers, no subcutaneous nodules, induration. Psychiatric/Neuro: oriented to time, place, person, judgement normal, affect appropriate for age, insight intact, no focal deficits. Tests:, x-rays reviewed, review of old records completed, Assessment/Plan 1. Left lower quadrant pain (R10.32: Left lower quadrant pain) likely related to back/musculoskeleta l; recommend follow up with Dr Rg for further evaluation of back; no evidence of hernia; may possibly related to abdominal scar tissue, but less likely with no relationship to eating or bowel movements; follow up as needed; call with problems/questions. Follow-up With When Contact Information GORDON HINKLE, Jadiel Schultz Only if needed [address] [place] [address]- Additional Instructions: Problem List/Past Medical History Ongoing A-fib Alveolar ridge atrophy Azotemia Cardiovascular disease Disorder of mitral and aortic valves Foreign body of left knee HTN (hypertension) Hypercholesterolemi a Knee pain, left Left atrial enlargement Left lower quadrant pain Lumbar spinal stenosis LVH (left ventricular hypertrophy) Mitral regurgitation Prostatism Right atrial enlargement Historical No qualifying data Procedure/Surgical History Exploratory laparotomy (10/07/2015), Bleeding ulcer, Pyloroplasty, Repair of left inguinal hernia, Repair of right inguinal hernia. Medications cloNIDine 0.1 mg tab, 0.1 mg= 1 tab(s), Oral, BID hydrochlorothiazide 25 mg Tab, 25 mg= 1 tab(s), Oral, Daily Levsin 0.125 mg SL Tab, 0.125 mg= 1 tab(s), Oral, Bedtime lisinopril 20 mg Tab, 20 mg= 1 tab(s), Oral, Daily Metoprolol tartrate 50 mg Tab, 50 mg= 1 tab(s), Oral, BID omeprazole 20 mg Cap-DR, 20 mg= 1 cap(s), Oral, Daily simvastatin 20 mg Tab, 20 mg= 1 tab(s), Oral, Daily terazosin 10 mg Cap, 10 mg= 1 cap(s), Oral, Once a day (at bedtime) Allergies NSAIDs (GI bleeding) Social History Alcohol Current, Beer, Daily, 07/09/2020 Tobacco Former smoker, quit more than 30 days ago Tobacco Use:., 07/09/2020 Family History COPD: Mother. Hypertension: Mother and Father. Stroke: Father. [facility] Comment on above: Result Comment: Elec tronically Signed By: GORDON HINKLE, Jadiel Schultz\.br\Date and Time Signed: 08/06/20 15:45 EDT Provider Letter FTon 07-16 Provider Letter [facility] Jacque Rg [address] [place] [address] [place] [address] Re: JANA WILLIAMSON Date of : 1945 Thank you for your referral of Jana Williamson who was seen on consultation on 07/09/2020 for foreign body of knee. I have enclosed my consultation notes for your review. Sincerely, Jadiel Epperson MD General Surgery [facility] Physician Referralon 020 Physician Referral [phone] [id number] [id number]:127 [facility] Ambulatory Clinical Summaryo n 07-09-2020 Ambulatory Clinical Summary {[id number] [facility] General Surgery Office/Clini c Noteon 07-09-2020 General Surgery Office/Clinic Note Chief Complaint referral for foreign body of left knee HPI Staff 75 year old male presents on consultation form Dr. Rg for foreign body of left knee. CT completed 06/12/20 with 4mm foreign body in the infrapatellar fat pad. Complains of left knee pain since November. No use of pain medication; he is unable to take NSAIDS due to h/o GI bleed. Some difficulty with ambulation, especially with steps. He is unsure what this foreign body may be. History of Present Illness 75 yo male with h/o htn, afeb; complains of 6 month h/o left knee pain, worse with going down steps; work up revealed 4 mm metallic fragment behind patella; denies injury, may have had metallic fragment from injury as a child; no skin changes or swelling; does not feel a lump; had x-ray and ct scan of area that revealed foreign body, some arthritic changes. denies blood thinners, takes occasional Tylenol fo discomfort. Review of Systems PHQ Score Initial Depression Screen Score: 0 ROS - Provider Constitutional: no fever, no sweats, no weight loss. Eyes: yes glasses, no blurred vision, no visual loss. ENMT: no dentures, no hoarseness, no swallowing difficulties, no hearing loss, no ear infection(s), no nose bleeds. Cardiovascular: high blood pressure, no chest pain, regular heartbeat, no heart murmur. Respiratory: no shortness of breath, no cough, no asthma, no wheezing. Gastrointestinal: no nausea, no vomiting, no diarrhea, no constipation, no blood in stool, no change in bowel habits, no abdominal pain, no hepatitis. Genitourinary: no kidney stones, no urine infection, no dysuria. Musculoskeletal: moderate pain, no weakness. Skin: no changing moles, no rash, no skin lumps. Neurologic: no seizures, no epilepsy, no headache. Psychiatric: no emotional or psychiatric problem. Heme/Lymph: no bleeding problems, no anemia, no blood clots, no transfusions. Allergy/Immunologic : no swollen lymph nodes/glands, no IV drug abuse. Other: Additional ROS info: Except as noted in the above Review of Systems and in the History of Present Illness, all other systems have been reviewed and are negative or noncontributory. Physical Exam Vitals & Measurements T: 36.7 ?C (Tympanic) HR: 76(Peripheral) RR: 16 BP: 150/80 HT: 172.72 cm HT: 172.7 cm WT: 92.53 kg WT: 92.5 kg BMI: 31.02 HEENT: normal conjunctiva, sclera clear, no scleral icterus, EOM intact, PERRLA, oral mucosa moist without lesions. Neck: trachea midline, no mass, symmetric, no thyromegaly or nodules, no adenopathy Respiratory: lungs CTA, respirations non labored. Cardiovascular: irregularly-irregul ar rate and rhythm, no murmur, no pedal edema or varicosities. Musculoskeletal: abnormal gait, digits and nails without infection, nodes, cyanosis, clubbing. Skin: no rashes, no lesions, no ulcers,no palpable nodules left knee, nontender. no skin changes Psychiatric/Neuro: oriented to time, place, person, judgement normal, affect appropriate for age, insight intact, no focal deficits. Tests: x-rays reviewed, review of old records completed, Assessment/Plan 1. Knee pain, left (M25.562: Pain in left knee) unclear if pain is related to foreign body or arthritis; metallic fragment not in subcutaneous tissue, recommend orthopedic evaluation. Ordered: [facility] External Ambulatory Referral 2. Foreign body of left knee (S80.252A: Superficial foreign body, left knee, initial encounter) see # 1 Follow-up No qualifying data available Problem List/Past Medical History Ongoing A-fib Alveolar ridge atrophy Azotemia Cardiovascular disease Disorder of mitral and aortic valves Foreign body of left knee HTN (hypertension) Hypercholesterolemi a Knee pain, left Left atrial enlargement Lumbar spinal stenosis LVH (left ventricular hypertrophy) Mitral regurgitation Prostatism Right atrial enlargement Historical No qualifying data Procedure/Surgical History Exploratory laparotomy (10/07/2015), Bleeding ulcer, Pyloroplasty, Repair of left inguinal hernia, Repair of right inguinal hernia. Medications cloNIDine 0.1 mg tab, 0.1 mg= 1 tab(s), Oral, BID hydrochlorothiazide 25 mg Tab, 25 mg= 1 tab(s), Oral, Daily lisinopril 20 mg Tab, 20 mg= 1 tab(s), Oral, Daily Metoprolol tartrate 50 mg Tab, 50 mg= 1 tab(s), Oral, BID omeprazole 20 mg Cap-DR, 20 mg= 1 cap(s), Oral, Daily simvastatin 20 mg Tab, 20 mg= 1 tab(s), Oral, Daily terazosin 10 mg Cap, 10 mg= 1 cap(s), Oral, Once a day (at bedtime) Allergies NSAIDs (GI bleeding) Social History Alcohol Current, Beer, Daily, 07/09/2020 Tobacco Former smoker, quit more than 30 days ago Tobacco Use:., 07/09/2020 Family History COPD: Mother. Hypertension: Mother and Father. Stroke: Father. [facility] Comment on above: Result Comment: Elec tronically Signed By: GORDON HINKLE, Jadiel Schultz\vlad\Date and Time Signed: 07/09/20 13:30 EDT Physician Referralon 020 Physician Referral [id number]:127 [facility] Encounters Encounter Date Encounter Type Care Provider Facility Start: 05-06-2024 End: 05-06-2024 ambulatory M[facility] Start: 03-22-2024 End: 03-22-2024 ambulatory JOHN RINALDI Not Available Start: 12-22-2023 Bamboo flowsheet John lizarraga DO Work Phone: [facility] Start: 12-22-2023 Bamboo flowsheet John lizarraga DO Work Phone: [facility] Start: 12-22-2023 End: 12-22-2023 ambulatory JOHN RINALDI Not Available Start: 12-22-2023 End: 12-22-2023 Postop follow up visit related to original px John Rinaldi DO Work Phone: [facility] Comment on above: Pseudophakia (Primar y Dx) Start: 11-24-2023 End: 11-24-2023 [facility] Start: 11-22-2023 End: 11-22-2023 ambulatory JOHN RINALDI Not Available Start: 11-16-2023 End: 11-16-2023 ambulatory JOHN RINALDI Not Available Start: 11-07-2023 End: 11-07-2023 ambulatory JOHN RINALDI Not Available Start: 11-01-2023 End: 11-01-2023 ambulatory JOHN RINALDI Not Available Start: 06-30-2022 End: 07-01-[address] JACQUE RG Facility: Start: 10-17-2017 End: 10-18-2017 Ambulatory DEFAULT PHYSICIAN Facility:[facility] Procedures Date Procedure Procedure Detail Performing Clinician Start: 06-30-[address] MINA RG Comment on above: Performed By: #### P [facility] #### [facility] [address] [place] [address] Dr. Linda Epps Plan of Treatment Date Care Activity Detail Author Start: 12-22-2023 End: 12-22-2023 Patient encounter procedure 12/22/2023 8:30 AM EST Office Visit [facility] [address] [place] [address] John Rinaldi DO [address] [place] [address] Arrived [facility] Comment on above: Arrived Start: 07-21-2023 Influenza vaccination Influenza Vacc ine (#1) [facility] Start: 2010 Pneumococcal Vaccine : 65+ Years (1 - PCV) Pneumococcal Vaccine: 65+ Years (1 - PCV) [facility] Payers Date Payer Category Payer Unknown 2015 Medicare MEDICARE MEDICAR E PART B [id number] 2015-[place] [place] [address] Medicare [id number] 1959 Medicare [id number] 1959 Unknown [id number] 1945 Unknown [id number] 1945 Unknown [id number] 1945 Unknown [id number] 1945 Unknown [id number] 1945 Unknown [id number] 1945 Unknown [id number] 1945 Unknown [id number] Social History Date Type Detail Facility Start: 09-26-2023 Tobacco smoking status NHIS Ex-smoke r [facility] History of tobacco use Current smoker [facility] History of tobacco use Cigarette Smoker [facility] Start: 09-26-2023 Tobacco use and exposure Smoke less tobacco non-user [facility] Start: 11-22-2023 End: 12-22-2023 Alcohol intake Current drinker of alcohol (finding) [facility] Start: 10-10-2023 History of Social function [facility] Start: 10-10-2023 Alcohol Use Disorder Identification Test - Consumption [AUDIT-C] [facility] How often to you hav e a drink containing alcohol? 4 or more times a week [facility] How many standard dr inks containing alcohol do you have on a typical day? 5 or 6 [facility] How often do you hav e 6 or more drinks on 1 occasion? Daily or almost daily [facility] Start: 10-10-2023 Alcohol Comment caffeine intak e: 1-2 cups per day of decaff coffee [facility] Start: 1945 Sex Assigned At Not on file N [facility] Healthcare Progress note 05-06-2024 Note Date & Type Note Facility 05-06-2024 Note Cardiology Follow Up Progress Note HPI: Mr. Williamson is a 76-year-old gentleman who presents to cardiology clinic for follow-up in regards to his paroxysmal atrial fibrillation and hypertension Patient has a history of GI bleeding, and as such, he has not been anticoagulated for his atrial fibrillation despite an elevated [id number]-OFAr score. He adamantly refuses anticoagulation given his history, despite multiple discussions and no recent GI bleeds. Patient here for follow up [facility] admission for syncopal episode, afib w/ RVR and elevated troponin and uncontrolled hypertension. He is not anticoagulated due to hx of severe GI bleed. states Dr. Rg stopped clonidine a few weeks ago due to hypotension. Isosorbide was doubled to 60mg daily. Patient denies chest pain, SOB, palpitations, lightheadedness/dizziness, and recurrent syncope. At the time of syncope, patient was outside drinking. He had an elevated ETOH level in the ER. He denies any dizziness or lightheadedness prior to passing out. No chest pain or shortness of breath. Cardiology ROS: 10 point ROS is performed and is negative unless otherwise specified in HPI. Medications Current Outpatient Medications on File Prior to Visit Medication Sig Dispense Refill cloNIDine (Catapres) 0.1 mg tablet Take 0.1 mg by mouth in the morning and at bedtime. hydroCHLOROthiazide (HYDRODiuril) 25 mg tablet Take 25 mg by mouth in the morning. lisinopril 20 mg tablet Take 20 mg by mouth in the morning. metoprolol succinate XL (Toprol-XL) 100 mg 24 hr tablet Take 100 mg by mouth in the morning. omeprazole (PriLOSEC) [address] capsule omeprazole 20 mg capsule,delayed release simvastatin (Zocor) 20 mg tablet Take 20 mg by mouth at bedtime. terazosin (Hytrin) 10 mg capsule terazosin 10 mg capsule vit C,A-Ml-kqljp-lutein-zeaxan (PreserVision AREDS-2) 250-90-40-1 mg capsule Take by mouth. No current facility-administered medications on file prior to visit. Allergies Nsaids (non-steroidal anti-inflammatory drug) Physical Exam VITAL SIGNS: There were no vitals taken for this visit. Constitutional: Well developed, Well nourished, No acute distress, Non-toxic appearance. HENT: Normocephalic, Atraumatic, Bilateral external ears have normal appearance, Bilateral TMs clear, Oropharynx moist, No oral or pharyngeal exudates, Nose appears normal, nares are patent. Eyes: PERRLA, EOMI, Conjunctiva normal, No discharge. Neck: Normal range of motion, No tenderness, Supple, No stridor. No cervical lymphadenopathy noted. Cardiovascular: Normal heart rate, Normal rhythm, No murmurs, No rubs, No gallops. Thorax & Lungs: Normal breath sounds, No respiratory distress, No wheezing, No chest tenderness to palpation. Abdomen: Bowel sounds normal, Soft, Nontender, No masses, No pulsatile masses. Skin: Warm, Dry, No erythema, No rash. Back: No tenderness, No CVA tenderness. Extremities: Intact distal pulses, No edema, No tenderness, No cyanosis, No clubbing. Musculoskeletal: Good range of motion in all major joints with 5/5 muscle strength in all muscle groups, No tenderness to palpation or major deformities noted. Neurologic: Alert & oriented x 3, Normal motor function in all major muscle groups, Normal sensory function to all major dermatomes, No focal deficits noted. Psychiatric: Affect normal, Judgment normal, Mood normal. Impression: -Paroxysmal atrial fibrillation: Patient is not anticoagulated given his GI bleeding history. He declines anticoagulation and declines watchman eval. He understands the risks of stroke. -History of GI bleed: denies any recent bleeding -HTN: Bp has been on lower end recently -HLD -Syncope -Elevated troponin Plan: -Continue toprol for afib -Continue toprol, Lisinopril for HTN. Will decrease lisinopril to 10 mg daily given lower Bp. Recommend reducing Imdur from 60 mg daily to 30 mg daily. Patient denies any chest pain -Continue simvastatin for HLD -Given syncopal episode, recommend 30-day event monitor. Patient agrees. Echo Was performed in hospital and is without acute abnormality -Given elevated troponins in the hospital, recommend ischemic evaluation. Patient adamantly declines stress test or invasive ischemic evaluation. He understands the risks and again adamantly declines any ischemic testing. -I revisited the patient's risk of stroke given A. fib. I discussed with him options including anticoagulation and watchman procedure. He respectfully declines both of these, And he verbalizes understanding of risk of stroke -Optimize medical management -Aggressive risk factor modification -Plan of care discussed with patient. All questions were answered. Patient voices understanding and is agreeable with current plan. -Patient was educated on red flag symptoms. Strict return precautions were provided. Patient verbalizes understanding -Follow-up in cardiology clinic in 1 year, or sooner as needed (more content not included)... [facility] History of Present illness Narrative 12-22-2023 John Rinaldi DO - 12/22/2023 8:30 AM EST Note Date & Type Note Facility 12-22-2023 History of Presen t illness Narrative Images from the original note were not included. Assessment/Plan Diagnoses and all orders for this visit: Pseudophakia - s/p CE OD (1mth): Patient should be close to off all post-op meds. Pt. received final refraction for this eye today. documented in this encounter [facility] Healthcare Progress note 11-24-2023 Note Date & Type Note Facility 11-24-2023 Note Patient here for 1 y ear follow up PAF and hypertension. He had routine labs in Jun 2023. He is not anticoagulated due to hx of GI bleed. Denies chest pain, SOB, and palpitations. He's doing very well. Review of Systems Musculoskeletal: Positive for arthritis. All other systems reviewed and are negative. [facility] Progress note 11-24-2023 Note Date & Type Note Facility 11-24-2023 Note Cardiology Follow Up Progress Note Chief Complaint: [facility]ology clinic follow up HPI: Mr. Williamson is a 76-year-old gentleman who presents to cardiology clinic for follow-up in regards to his paroxysmal atrial fibrillation and hypertension Patient adamantly denies any cardiac complaints or concerns. Patient denies any chest pain or shortness of breath. Patient denies any lower extremity edema, orthopnea, or proximal nocturnal dyspnea. No near-syncope or syncope. No dizziness or lightheadedness. Patient has a history of GI bleeding, and as such, he has not been anticoagulated for his atrial fibrillation despite an elevated [id number] score. He adamantly refuses anticoagulation given his history, despite multiple discussions and no recent GI bleeds. Cardiology ROS: GENERAL: Denies fever, chills, night sweats, weight loss. HEENT: Denies changes in vision, photophobia, changes in hearing, epistaxis, oral bleeding. CARDIOVASCULAR: Denies chest pain, exertional dyspnea, orthopnea/PND, lower extremity edema, palpitations, lightheadedness/dizziness. RESPIRATORY: Denies SOB, coughing, wheezing GI: Denies abdominal pain, nausea/vomiting, heartburn, melena/hematochezia. RENAL: Denies dysuria, hematuria, flank pain. MSK: Denies muscle weakness/pain, arthralgias/joint pain. NEUROLOGIC: Denies LOC, weakness, numbness, headaches. SKIN: Denies abnormal rashes or bleeding. PSYCH: Denies significant anxiety, depression, sleep disturbances. Medications Current Outpatient Medications on File Prior to Visit Medication Sig Dispense Refill cloNIDine (Catapres) 0.1 mg tablet Take 0.1 mg by mouth in the morning and at bedtime. hydroCHLOROthiazide (HYDRODiuril) 25 mg tablet Take 25 mg by mouth in the morning. lisinopril 20 mg tablet Take 20 mg by mouth in the morning. metoprolol succinate XL (Toprol-XL) 100 mg 24 hr tablet Take 100 mg by mouth in the morning. omeprazole (PriLOSEC) [address] capsule omeprazole 20 mg capsule,delayed release simvastatin (Zocor) 20 mg tablet Take 20 mg by mouth at bedtime. terazosin (Hytrin) 10 mg capsule terazosin 10 mg capsule vit C,V-Ye-jeuot-lutein-zeaxan (PreserVision AREDS-2) 250-90-40-1 mg capsule Take by mouth. No current facility-administered medications on file prior to visit. Allergies Nsaids (non-steroidal anti-inflammatory drug) Physical Exam VITAL SIGNS: BP 107/65 (BP Location: Left arm, Patient Position: Sitting) Pulse 72 Ht 1.727 m (5' 8 ) Wt 91.2 kg (201 lb) SpO2 98% BMI 30.56 kg/m??? Constitutional: Well developed, Well nourished, No acute distress, Non-toxic appearance. HENT: Normocephalic, Atraumatic, Bilateral external ears have normal appearance, Bilateral TMs clear, Oropharynx moist, No oral or pharyngeal exudates, Nose appears normal, nares are patent. Eyes: PERRLA, EOMI, Conjunctiva normal, No discharge. Neck: Normal range of motion, No tenderness, Supple, No stridor. No cervical lymphadenopathy noted. Cardiovascular: Normal heart rate, Normal rhythm, No murmurs, No rubs, No gallops. Thorax & Lungs: Normal breath sounds, No respiratory distress, No wheezing, No chest tenderness to palpation. Abdomen: Bowel sounds normal, Soft, Nontender, No masses, No pulsatile masses. Skin: Warm, Dry, No erythema, No rash. Back: No tenderness, No CVA tenderness. Extremities: Intact distal pulses, No edema, No tenderness, No cyanosis, No clubbing. Musculoskeletal: Good range of motion in all major joints with 5/5 muscle strength in all muscle groups, No tenderness to palpation or major deformities noted. Neurologic: Alert & oriented x 3, Normal motor function in all major muscle groups, Normal sensory function to all major dermatomes, No focal deficits noted. Psychiatric: Affect normal, Judgment normal, Mood normal. Impression: -Paroxysmal atrial fibrillation: Patient is not anticoagulated given his GI bleeding history. He declines anticoagulation and denies watchman eval. He understands the risks of stroke. -History of GI bleed: denies any recent bleeding -HTN: well controlled at home. Patient checks daily -HLD Plan: -Continue toprol for afib -Continue toprol, clonidine, hydrochlorothiazide for HTN -Continue simvastatin for HLD -I revisited the patient's risk of stroke given A. fib. I discussed with him options including anticoagulation and watchman procedure. He respectfully declines both of these, And he verbalizes understanding of risk of stroke -Optimize medical management -Aggressive risk factor modification -Plan of care discussed with patient. All questions were answered. Patient voices understanding and is agreeable with current plan. -Patient was educated on red flag symptoms. Strict return precautions were provided. Patient verbalizes understanding -Follow-up in cardiology clinic in 1 year, or sooner as needed Mine Santos MD Interventional Cardiology [facility] Evaluation note Note Date & Type Note Facility Evaluation note Diagnosis Pseudophakia- Primary Lens replaced by other means documented in this encounter [facility] Summary Purpose Family History No Family History Records FoundNo Family History Records FoundNo Family History Records FoundNo Family History Records FoundNo Family History Records Found Advance Directives No Advanced Directives Records FoundNo Advanced Directives Records FoundNo Advanced Directives Records FoundNo Advanced Directives Records FoundNo Advanced Directives Records Found Additional Source Comments (unrecognized sect ion and content) No Status Records FoundNo Status Records FoundNo Status Records FoundNo Status Records FoundNo Status Records Found INFORMATION SOURCE (unrecogn ized section and content) DATE CREATED AUTHOR 05/15/2018 [facility] DATE CREATED AUTHOR AUTHOR'S ORGANIZ ATION 09/02/2020 [facility] DATE CREATED AUTHOR AUTHOR'S ORGANIZ ATION 07/02/2022 [facility] DATE CREATED AUTHOR AUTHOR'S ORGANIZ ATION 03/23/2024 [facility] DATE CREATED AUTHOR AUTHOR'S ORGANIZ ATION 05/07/2024 [facility] Care Teams (unrecognized sec tion and content) Career Education Teacher Relationship Specialty Start Date End Date Jacque Rg MD [address] [place] [address] PCP - General Family Medicine 09/26/23 Career Education Teacher Relationship Specialty Start Date End Date Jacque Rg MD [address] [place] [address] PCP - General Family Medicine 09/26/23 Reason for Visit (unrecogniz ed section and content) Reason Comments Post-op FOR RECORDS PERTAINING TO PATIENTS WHO ARE OR HAVE BEEN ENROLLED IN A CHEMICAL DEPENDENCY/SUBSTANCEABUSE PROGRAM, SOME INFORMATION MAY BE OMITTED. This clinical summary was aggregated from multiple sources. Caution should be exercised in using it in the provision of clinical care. This summary normalizes information from multiple sources, and as a consequence, information in this document may materially change the coding, format and clinical context of patient data. In addition, data may be omitted in some cases. CLINICAL DECISIONS SHOULD BE BASED ON THE PRIMARY CLINICAL RECORDS. [employer] provides no warranty or guarantee of the accuracy or completeness of information in this document.
== END 2024-05-20 08:45 | disposition home or self-care (01) ==
LOC: EC 08:45
PROVIDERS: PCP Family Medicine; Visit Provider Orthopaedic Surgery
DX: S82.021D Displaced longitudinal fracture of right patella, subsequent encounter for closed fracture with routine healing (principal)
CPT/HCPCS: 73560

== ENCOUNTER 2024-06-17 09:19 | Outpatient (OUT) | payer MEDICARE, OTHER, SELFPAY ==
--- NOTE | 2024-06-17 | XR_ITS ---
The [address] [address] Patient Name: JANA MUKHERJEE MRN: [id number] date: 1945 Sex: M Assigned Patient Location: Current Patient Location: Accession/Order Number: [id number] Exam Date: 06/17/2024 09:35 Report Date: 06/18/2024 06:11 At the request of: BLADIMIR CHAUDHRY Procedure: XR knee RT 2V PROCEDURE: XR knee RT 2V HISTORY: RIGHT KNEE PAIN ; follow-up patella fracture. COMPARISON: XR knee right 05/20/2024 FINDINGS: BONES:Prior fracture with slight increased density at fracture line. No appreciable callus formation. Persistent step off along the articular surface. SOFT TISSUES:No visible soft tissue swelling. EFFUSION:None visible. OTHER: Negative. XR/XR knee RT 2V IMPRESSION: 1. Stable alignment and suspected ongoing bone healing of patella fracture. Electronically authenticated by: BLADIMIR CARABALLO Date: 06/18/2024 06:11
--- OUTSIDE RECORDS SUMMARY | 2024-06-17 09:23 | XMS_ITS ---
Patient Summarization (C-CDA 2.1 CCD) Created on: June 17, 2024 JANA WILLIAMSON : 1945 Sex: Male Demographics Address [facility] [address] [place] [address] Preferred Language en Marital Status Spiritism Affiliation Unknown Race Unknown Ethnic Group Unknown Author Organization Sample organization Care Team Providers Care Shopping Inspector Name Role Phone PHYSICIAN, DEFAULT Unavailable Unavailable PHYSICIAN, DEFAULT Unavailable Unavailable DR JACQUE RG Attending Unavailable DR JACQUE RG Consulting DR JACQUE Recio Primary Care Unavailable DR JACQUE RG Admitting Unavailable Jacque Rg MD Primary Care Provider [phone] JOHN RINALDI Attending Unavailable JOHN RINALDI Attending Unavailable JOHN RINALDI Attending Unavailable JOHN RINALDI Attending Unavailable JOHN RINALDI Attending Unavailable JOHN RINALDI Attending Unavailable MINE SANTOS Attending Unavailable MINE SANTOS Attending Unavailable Allergies Allergy Classification Reported Allergen(s) Allergy Type Date of Onset Reaction(s) Facility (2 sources) NSAIDs; Translations: [NSAIDS (NON-STEROIDAL ANTI-INFLAMMATOR Y DRUG)] Drug allergy (disorder) 5 [facility] (2 sources) Ibuprofen Drug Allergy 3 [facility] (2 sources) Non-steroidal anti-inflammator y agent Drug Intolerance 5 [facility] Encounters Encounter Date Encounter Type Care Provider Facility Start: 05-06-2024 End: 05-06-2024 ambulatory MINE SANTOS [facility] Start: 03-22-2024 End: 03-22-2024 ambulatory JOHN RINALDI Not Available Start: 12-22-2023 Bamboo flowsheet John lizarraga DO Work Phone: [facility] Start: 12-22-2023 Bamboo flowsheet John lizarraga DO Work Phone: [facility] Start: 12-22-2023 End: 12-22-2023 ambulatory JOHN RINALDI Not Available Start: 12-22-2023 End: 12-22-2023 Postop follow up visit related to original px John Rinaldi DO Work Phone: [facility] Comment on above: Pseudophakia (Primar y Dx) Start: 11-24-2023 End: 11-24-2023 [facility] Start: 11-22-2023 End: 11-22-2023 ambulatory JOHN RINALDI Not Available Start: 11-16-2023 End: 11-16-2023 ambulatory JOHN RINALDI Not Available Start: 11-07-2023 End: 11-07-2023 ambulatory JOHN RINALDI Not Available Start: 11-01-2023 End: 11-01-2023 ambulatory JOHN RINALDI Not Available Start: 06-30-2022 End: 07-01-[address] JACQUE RG Facility: Start: 10-17-2017 End: 10-18-2017 Ambulatory DEFAULT PHYSICIAN Facility:[facility] Medications Current Medications Medication Drug Class(es) Dates [...] Nonsteroidal Anti-inflammatory Drug, Cyclooxygenase Inhibitor Start: 11-01-20 23 take 1 drop(s) into the eye(s) twice [...] ophthalmic solution (2 sources) Quinolone Antimicrobial Start: 023 take 1 drop(s) into the eye(s) five [...] every day by oral route. 0 Active Payers Date Payer Category Payer Unknown 2015 Medicare MEDICARE MEDICAR E PART B [id number] 2015-[place] [address] Medicare [id number] 1959 Medicare [id number] 1959 Unknown [id number] 1945 Unknown [id number] 1945 Unknown [id number] 1945 Unknown [id number] 1945 Unknown [id number] 1945 Unknown [id number] 1945 Unknown [id number] 1945 Unknown [id number] Plan of Treatment Date Care Activity Detail Author Start: 12-22-2023 End: 12-22-2023 Patient encounter procedure 12/22/2023 8:30 AM EST Office Visit [facility] [address] [place] [id number] John Rinaldi DO [address] [place] [address] Arrived [facility] Comment on above: Arrived Start: 07-21-2023 Influenza vaccination Influenza Vacc ine (#1) [facility] Start: 2010 Pneumococcal Vaccine : 65+ Years (1 - PCV) Pneumococcal Vaccine: 65+ Years (1 - PCV) [facility] Problems Problem Classification Problem Date Documented Date Episodic/Chronic Cardiac dysrhythmias (1 source) Unspecified atrial fibrillation; Translations: [UNSPECIFIED ATRIAL FIBRILLATION] Onset: 07-01-2022 Chronic Cataract (7 sources) Bilateral age-related nuclear cataracts; Translations: [Age-related nuclear cataract, bilateral] Onset: 09-26-2023 09-26-2023 Chronic Coronary atherosclerosis and other heart disease (1 source) Atherosclerotic heart disease of [place] coronary artery without angina pectoris; Translations: [ASHD [place] W/O ANGINA PECTORIS] Onset: 07-01-2022 Chronic [...] Translations: [Other persistent atrial fibrillation] Onset: 11-22-2022 Procedures Date Procedure Procedure Detail Performing Clinician Start: 06-30-[address] MINA RG Comment on above: Performed By: #### P SASC #### [facility] [address] [place] [address] Dr. Linda Epps Results Test Name Value Interpretation Reference Range Facility Office Visiton 05-06-2024 Follow-up visit [id number] Jana Williamson 1945 M Date Provider [facility] Family History Problem Relation Age of Onset Stroke Father Other Brother Diabetes Brother Family Status - Relation Status Age at Father Brother Level of Service:69182 IN OFFICE/OUTPATIENT ESTABLISHED MOD MDM 30 MIN Normal [facility] Office Visiton 11-24-2023 Follow-up visit [id number] Jana Williamson 1945 M Date Provider Department [facility] Family History Problem Relation Age of Onset Stroke Father Other Brother Diabetes Brother Family Status - Relation Status Age at Father Brother Level of Service:74186 IN OFFICE/OUTPATIENT ESTABLISHED LOW MDM 20 MIN Normal [facility] INSULINon 07-01-2022 Insulin 11.1 uIU/mL Normal 2.6-24.9 [facility] Comment on above: Performed By: #### I NSULIN #### [facility] [address] [place] [address] Dr. Linda Epps T4, T3U, FTI LABCORPon 07-01 Free Thyroxine Index 2.0 Normal 1.2-4.9 [facility] Comment on above: Performed By: #### T HYLC #### [facility] [address] [address] [address] Linda Epps T3 Uptake 30 % Normal 24-39 [facility] Comment on above: Performed By: #### T HYLC #### [facility] [address] [place] [address] Dr. Linda Epps T4 [Mass/Vol] 6.8 ug/dL Normal 4.5-12.0 [facility] Comment on above: Performed By: #### T HYLC #### [facility] [address] [address] [address] Linda Epps CBC AUTO DIFFon 06-30-2022 BASO # 0.0 103/ul Normal 0.0-0.1 [facility] Comment on above: Performed By: #### C BC #### [facility] [address] [address] [address] Linda Epps Basophils/100 WBC (Bld) 0.5 % Normal 0.2-2.0 [facility] Comment on above: Performed By: #### C BC #### [facility] [address] [place] [address] Dr. Linda Epps EO # 0.1 103/ul Normal 0.0-0.7 [facility] Comment on above: Performed By: #### C BC #### [facility] [address] [place] [address] Dr. Lidna Epps Eosinophils/100 WBC (Bld) 1.4 % Normal 0.9-7.0 [facility] Comment on above: Performed By: #### C BC #### [facility] [address] [place] [address] Dr. Linda Epps Erythrocyte distribution width (RBC) [Ratio] 11.6 % Normal 11.0-15.0 [facility] Comment on above: Performed By: #### C BC #### [facility] [address] [place] [address] Dr. Linda Epps Hematocrit (Bld) [Volume fraction] 42.3 % Normal 42.0-54.0 [facility] Comment on above: Performed By: #### C BC #### [facility] [address] [place] [address] Dr. Linda Epps Hemoglobin (Bld) [Mass/Vol] 14.4 g/dL Normal 14.0-18.0 [facility] Comment on above: Performed By: #### C BC #### [facility] [address] [place] [address] Dr. Linda Epps IG # 0.01 10e3/ul Normal 0.00-0.03 [facility] Comment on above: Performed By: #### C BC #### [facility] [address] [place] [address] Dr. Linda Epps IG % 0.2 % Normal 0.0-0.5 [facility] Comment on above: Performed By: #### C BC #### [facility] [address] [address] [address] Linda Epps LYMPH # 0.9 103/ul Critically low 1.2-3.8 [facility] Comment on above: Performed By: #### C BC #### [facility] [address] [place] [address] Dr. Linda Epps Lymphocytes/100 WBC (Bld) 19.9 % Critically low 20.5-60.0 [facility] Comment on above: Performed By: #### C BC #### [facility] [address] [place] [address] Dr. Linda Epps MANUAL DIFF REQ NO Normal [facility] Comment on above: Performed By: #### C BC #### [facility] [address] [place] [address] Dr. Linda Epps MCH (RBC) [Entitic mass] 33.9 pg Normal 25.9-34.0 [facility] Comment on above: Performed By: #### C BC #### [facility] [address] [place] [address] Dr. Linda Epps MCHC (RBC) [Mass/Vol] 34.0 g/dL Normal 29.9-35.2 [facility] Comment on above: Performed By: #### C BC #### [facility] [address] [place] [address] Dr. Linda Epps MCV (RBC) [Entitic vol] 99.5 fL Critically high 80.0-94.0 [facility] Comment on above: Performed By: #### C BC #### [facility] [address] [place] [address] Dr. Linda Epps MONO # 0.4 103/ul Normal 0.3-0.8 [facility] Comment on above: Performed By: #### C BC #### [facility] [address] [address] [address] Linda Epps Monocytes/100 WBC (Bld) 9.5 % Normal 1.7-12.0 [facility] Comment on above: Performed By: #### C BC #### [facility] [address] [address] [address] Linda Epps NEUT # 3.0 103/ul Normal 1.4-6.5 [facility] Comment on above: Performed By: #### C BC #### [facility] [address] [address] [address] Linda Epps Neutrophils/100 WBC (Bld) 68.5 % Normal 43.0-75.0 [facility] Comment on above: Performed By: #### C BC #### [facility] [address] [address] [address] Linda Epps Platelet mean volume (Bld) [Entitic vol] 10.7 fL Normal 9.5-13.5 [facility] Comment on above: Performed By: #### C BC #### [facility] [address] [address] [address] Linda Epps PLT 156 103/ul Normal 150-450 [facility] Comment on above: Performed By: #### C BC #### [facility] [address] [address] [address] Linda Epps RBC 4.25 106/ul Critically low 4.70-6.10 [facility] Comment on above: Performed By: #### C BC #### [facility] [address] [address] [address] Linda Epps WBC 4.4 103/ul Normal 4.0-11.0 [facility] Comment on above: Performed By: #### C BC #### [facility] [address] [address] [address] Linda Epps GLYCOHEMOGLOBIN A1Con 2021 ADA RECOMMENDATION SEE BELOW Normal [facility] Comment on above: Result Comment: ADA RECOMMENDED LIMIT 4.0 - 6.0 ADA THERAPEUTIC TARGET < 7.0 ACTION SUGGESTED > 7.0 Performed By: #### A 1C #### [facility] [address] [address] [address] Linda Epps Glucose [Mass/Vol] 123 mg/dL Normal [facility] Comment on above: Performed By: #### A 1C #### [facility] [address] [address] [address] Linda Epps HbA1c (Bld) [Mass fraction] 5.9 % Normal 4.5-6.2 [facility] Comment on above: Performed By: #### A 1C #### [facility] [address] [address] [address] Linda Epps LIPID PROFILEon 06-30-2022 CHOL-HDL RATIO NORM SEE BELOW Normal [facility] Comment on above: Result Comment: 3.3 - 4.4 LOW RISK 4.4 - 7.1 AVERAGE RISK 7.1 - 11.0 MODERATE RISK >11.0 HIGH RISK Performed By: #### T SH, URIC, LIPID, CMP #### [facility] [address] [address] [address] Linda Epps Cholesterol [Mass/Vol] 154 mg/dL Normal <=200 [facility] Comment on above: Performed By: #### T SH, URIC, LIPID, CMP #### [facility] [address] [place] [address] Dr. Linda Epps Cholesterol in HDL [Mass/Vol] 53 mg/dL Normal 40-60 [facility] Comment on above: Performed By: #### T SH, URIC, LIPID, CMP #### [facility] [address] [address] [address] Linda Epps Cholesterol in LDL [Mass/Vol] 76.6 mg/dL Normal [facility] Comment on above: Performed By: #### T SH, URIC, LIPID, CMP #### [facility] [address] [place] [address] Dr. Linda Epps Cholesterol.total/Cho lesterol in HDL [Mass ratio] 2.9 {ratio} Normal [facility] Comment on above: Performed By: #### T SH, URIC, LIPID, CMP #### [facility] [address] [address] [address] Linda Epps HDL NORMAL > or = 60 mg/dl - LOW CARDIOVASCULAR RISK <40 mg/dl - HIGH CARDIOVASCULAR RISK Normal [facility] Comment on above: Performed By: #### T SH, URIC, LIPID, CMP #### [facility] [address] [address] [address] Linda Epps LDL CALC NORMAL SEE BELOW Normal [facility] Comment on above: Result Comment: <100 mg/dl OPTIMAL 100 - 129 mg/dl NEAR OR ABOVE OPTIMAL 130 - 159 mg/dl BORDERLINE HIGH 160 - 189 mg/dl HIGH >190 mg/dl VERY HIGH Performed By: #### T SH, URIC, LIPID, CMP #### [facility] [address] [address] [address] Linda Epps Triglyceride [Mass/Vol] 122 mg/dL Normal <=150 [facility] Comment on above: Performed By: #### T SH, URIC, LIPID, CMP #### [facility] [address] [address] [address] Linda Epps VLDL CALC 24.4 mg/dL Normal [facility] Comment on above: Performed By: #### T SH, URIC, LIPID, CMP #### [facility] [address] [place] [address] Dr. Linda Epps PROF 14(COMP METB)on 022 Albumin [Mass/Vol] 3.9 g/dL Normal 3.4-5.0 [facility] Comment on above: Performed By: #### T SH, URIC, LIPID, CMP #### [facility] [address] [place] [address] Dr. Linda Epps Albumin/Globulin [Mass ratio] 1.6 {ratio} Normal [facility] Comment on above: Performed By: #### T SH, URIC, LIPID, CMP #### [facility] [address] [place] [address] Dr. Linda Epps ALP [Catalytic activity/Vol] 72 U/L Normal 46-116 [facility] Comment on above: Performed By: #### T SH, URIC, LIPID, CMP #### [facility] [address] [address] [address] Linda Epps ALT [Catalytic activity/Vol] 40 U/L Normal 16-63 [facility] Comment on above: Performed By: #### T SH, URIC, LIPID, CMP #### [facility] [address] [address] [address] Linda Epps Anion gap [Moles/Vol] 11.7 mmol/L Normal [facility] Comment on above: Performed By: #### T SH, URIC, LIPID, CMP #### [facility] [address] [place] [address] Dr. Linda Epps AST [Catalytic activity/Vol] 27 U/L Normal 15-37 [facility] Comment on above: Performed By: #### T SH, URIC, LIPID, CMP #### [facility] [address] [place] [address] Dr. Linda Epps Bilirubin [Mass/Vol] 0.8 mg/dL Normal 0.2-1.0 [facility] Comment on above: Performed By: #### T SH, URIC, LIPID, CMP #### [facility] [address] [place] [address] Dr. Linda Epps Calcium [Mass/Vol] 8.9 mg/dL Normal 8.5-10.1 [facility] Comment on above: Performed By: #### T SH, URIC, LIPID, CMP #### [facility] [address] [address] [address] Linda Epps Chloride [Moles/Vol] 102 mmol/L Normal 98-107 [facility] Comment on above: Performed By: #### T SH, URIC, LIPID, CMP #### [facility] [address] [place] [address] Dr. Linda Epps CO2 [Moles/Vol] 30.8 mmol/L Normal 21.0-32.0 [facility] Comment on above: Performed By: #### T SH, URIC, LIPID, CMP #### [facility] [address] [place] [address] Dr. Linda Epps Creatinine [Mass/Vol] 0.93 mg/dL Normal 0.70-1.30 [facility] Comment on above: Performed By: #### T SH, URIC, LIPID, CMP #### [facility] [address] [place] [address] Dr. Linda Epps EGFR-AF GEORGIAN >60 Normal >=60 [facility] Comment on above: Performed By: #### T SH, URIC, LIPID, CMP #### [facility] [address] [place] [address] Dr. Linda Epps EGFR-NON AF GEORGIAN >60 Normal >=60 [facility] Comment on above: Performed By: #### T SH, URIC, LIPID, CMP #### [facility] [address] [place] [address] Dr. Linda Epps Globulin (S) [Mass/Vol] 2.4 g/dL Normal [facility] Comment on above: Performed By: #### T SH, URIC, LIPID, CMP #### [facility] [address] [place] [address] Dr. Linda Epps Glucose [Mass/Vol] 131 mg/dL Critically high 74-106 [facility] Comment on above: Performed By: #### T SH, URIC, LIPID, CMP #### [facility] [address] [place] [address] Dr. Linda Epps Potassium [Moles/Vol] 3.5 mmol/L Normal 3.5-5.1 [facility] Comment on above: Performed By: #### T SH, URIC, LIPID, CMP #### [facility] [address] [place] [address] Dr. Linda Epps Protein [Mass/Vol] 6.3 g/dL Critically low 6.4-8.2 [facility] Comment on above: Performed By: #### T SH, URIC, LIPID, CMP #### [facility] [address] [place] [address] Dr. Linda Epps Sodium [Moles/Vol] 141 mmol/L Normal 136-145 [facility] Comment on above: Performed By: #### T SH, URIC, LIPID, CMP #### [facility] [address] [address] [address] Linda Epps Urea nitrogen [Mass/Vol] 10.0 mg/dL Normal 7.0-18.0 [facility] Comment on above: Performed By: #### T SH, URIC, LIPID, CMP #### [facility] [address] [address] [address] Linda Epps Urea nitrogen/Creatinine [Mass ratio] 10.8 mg/mg Normal [facility] Comment on above: Performed By: #### T SH, URIC, LIPID, CMP #### [facility] [address] [address] [address] Linda Epps TSHon 06-30-2022 TSH 2.135 uIU/mL Normal 0.358-3.740 [facility] Comment on above: Performed By: #### T SH, URIC, LIPID, CMP #### [facility] [address] [address] [address] Lnida Epps URIC ACID SERUMon 06-30-2022 Urate [Mass/Vol] 6.3 mg/dL Normal 3.5-7.2 [facility] Comment on above: Performed By: #### T SH, URIC, LIPID, CMP #### [facility] [address] [address] [address] Linda Epps OCC BLD IMMUNO SCREENon 06-20 OCCULT BLOOD Negative Normal NEGATIVE [facility] Comment on above: Performed By: #### O BSCRN #### [facility] [address] [address] [address] Linda Epps Consultation Noteon 09-01-20 20 Consultation Note [id number]:127 Normal [facility] Provider Letter FTon 08-13 Provider Letter [facility] Jacque Rg [address] [place] [address] [place] [address] Re: JANA WILLIAMSON Date of : 1945 Thank you for your referral of Jana Williamson who was seen on consultation on 08/06/2020 for left lower quadrant pain. I have enclosed my consultation notes for your review. Sincerely, Jadiel Epperson MD General Surgery Normal [facility] Historical Records Officeon 08-07-2020 Historical Records Office [id number]:127 Normal [facility] RAD - CT Reporton 08-07-[address] - [address] Report [id number]#[id number]:127 Normal [facility] Ambulatory Clinical Summaryo n 08-06-2020 Ambulatory Clinical Summary {[id number] Normal [facility] General Surgery Office/Clini c Noteon 08-06-2020 General [...] HINKLE, Jadiel Schultz Only if needed [address] [place] [address]- Additional Instructions: Problem List/Past Medical [...] Hypertension: Mother and Father. Stroke: Father. Normal [facility] Comment on above: Result Comment: Elec tronically Signed By: GORDON HINKLE, Jadiel Schultz\.br\Date and Time Signed: 08/06/20 15:45 EDT [facility] Provider Letter [facility] Jacque Ifrah [address] [place] [address] [place] [address] Re: JANA WILLIAMSON Date of : 1945 Thank you for your referral of Jana Williamson who was seen on consultation on 07/09/2020 for foreign body of knee. I have enclosed my consultation notes for your review. Sincerely, Jadiel Epperson MD General Surgery Normal [facility] Physician Referralon 020 Physician Referral [id number]:127 Normal [facility] Ambulatory Clinical Summaryo n 07-09-2020 Ambulatory Clinical Summary {[id number] Normal [facility] General Surgery Office/Clini c Noteon 07-09-2020 General [...] in subcutaneous tissue, recommend orthopedic evaluation. Ordered: [facility] External Ambulatory Referral 2. Foreign body of [...] Mother. Hypertension: Mother and Father. Stroke: Father. [facility] Comment on above: Result Comment: Elec tronically Signed By: GORDON HINKLE, Jadiel Smith\Date and Time Signed: 07/09/20 13:30 EDT Physician Referralon 020 Physician Referral [id number]:127 [facility] Social History Date Type Detail Facility Start: 11-22-2023 End: 12-22-2023 Alcohol intake Current drinker of alcohol (finding) [facility] Start: 10-10-2023 History of Social function [facility] Start: 10-10-2023 Alcohol Use Disorder Identification Test - Consumption [AUDIT-C] [facility] Start: 10-10-2023 Alcohol Comment caffeine intak e: 1-2 cups per day of decaff coffee [facility] Start: 09-26-2023 Tobacco smoking status NHIS Ex-smoke r [facility] Start: 09-26-2023 Tobacco use and exposure Smoke less tobacco non-user [facility] Start: 1945 Sex Assigned At Not on file [facility] History of tobacco use Current smoker [facility] History of tobacco use Cigarette Smoker [facility] How often to you hav e a drink containing alcohol? 4 or more times a week [facility] How many standard dr inks containing alcohol do you have on a typical day? 5 or 6 [facility] How often do you hav e 6 or more drinks on 1 occasion? Daily or almost daily [facility] Progress note 05-06-2024 Note Date & Type Note Facility 05-06-2024 Note Cardiology Follow Up Progress Note HPI: Mr. Williamson is a 76-year-old gentleman who presents to cardiology clinic for follow-up in regards to his paroxysmal atrial fibrillation and hypertension Patient has a history of GI bleeding, and as such, he has not been anticoagulated for his atrial fibrillation despite an elevated [id number]-[id number] score. He adamantly refuses anticoagulation given his history, despite multiple discussions and no recent GI bleeds. Patient here for follow up [facility] admission for syncopal episode, afib w/ RVR [...] mg capsule terazosin 10 mg capsule vit C,M-Ap-pkpjk-lutein-zeaxan (PreserVision AREDS-2) 250-90-40-1 mg capsule Take by [...] sooner as needed (more content not included)... [facility] History of Present illness Narrative 12-22-2023 John [...] this eye today. documented in this encounter [facility] Progress note 11-24-2023 Note Date & Type Note Facility 11-24-2023 Note Patient here for 1 y ear follow up PAF and hypertension. He had routine labs in Jun 2023. He is not anticoagulated due to hx of GI bleed. Denies chest pain, SOB, and palpitations. He's doing very well. Review of Systems Musculoskeletal: Positive for arthritis. All other systems reviewed and are negative. [facility] Progress note 11-24-2023 Note Date & Type Note Facility 11-24-2023 Note Cardiology Follow Up Progress Note Chief Complaint: [place] [facility] follow up HPI: Mr. Williamson [...] for his atrial fibrillation despite an elevated [id number] score. He adamantly refuses anticoagulation given his [...] mg capsule terazosin 10 mg capsule vit C,M-Yl-pojko-lutein-zeaxan (PreserVision AREDS-2) 250-90-40-1 mg capsule Take by [...] as needed Mine Santos MD Interventional Cardiology [facility] Evaluation note Note Date & Type Note [...] and content) DATE CREATED AUTHOR 05/15/2018 [facility] DATE CREATED AUTHOR AUTHOR'S ORGANIZ ATION 09/02/2020 [facility] DATE CREATED AUTHOR AUTHOR'S ORGANIZ ATION 07/02/2022 [facility] DATE CREATED AUTHOR AUTHOR'S ORGANIZ ATION 03/23/2024 [facility] DATE CREATED AUTHOR AUTHOR'S ORGANIZ ATION 05/07/2024 [facility] Care Teams (unrecognized sec tion and content) Shopping Inspector Relationship Specialty Start Date End Date Jacque Rg MD [address] [place] [address] PCP - General Family Medicine 09/26/23 Shopping Inspector Relationship Specialty Start Date End Date Jacque Rg MD [address] [place] [address] PCP - General Family Medicine 09/26/23 Reason [...] BE BASED ON THE PRIMARY CLINICAL RECORDS. [facility]. provides no warranty or guarantee of the accuracy or completeness of information in this document.
== END 2024-06-17 09:20 | disposition home or self-care (01) ==
LOC: EC 09:19
PROVIDERS: PCP Family Medicine; Visit Provider Orthopaedic Surgery
DX: S82.021D Displaced longitudinal fracture of right patella, subsequent encounter for closed fracture with routine healing (principal)
CPT/HCPCS: 73560

== ENCOUNTER 2024-07-11 09:09 | Outpatient (OUT) | payer MEDICARE, OTHER, SELFPAY ==
--- OUTSIDE RECORDS SUMMARY | 2024-07-11 09:32 | XMS_ITS | CCD ---
Author Organization [facility] Care Team Providers Care Drapery Examiner Name Role Phone PHYSICIAN, DEFAULT Unavailable Unavailable PHYSICIAN, DEFAULT Unavailable Unavailable DR JACQUE RG Attending Unavailable DR JACQUE RG Consulting DR JACQUE Recio Primary Care Unavailable DR JACQUE RG Admitting Unavailable Jacque Rg MD Primary Care Provider [phone] JOHN RINALDI Attending Unavailable JOHN RINALDI Attending Unavailable JOHN RINALDI Attending Unavailable JOHN RINALDI Attending Unavailable JOHN RINALDI Attending Unavailable JOHN RINALDI Attending Unavailable MINE SANTOS Attending Unavailable MINE SANTOS Attending Unavailable MINE SANTOS Attending Unavailable Allergies Allergy Classification Reported Allergen(s) Allergy Type Date of Onset Reaction(s) Facility (2 sources) NSAIDs; Translations: [NSAIDS (NON-STEROIDAL ANTI-INFLAMMATOR Y DRUG)] Drug allergy (disorder) 5 [facility] Repository (2 sources) Ibuprofen Drug Allergy 3 [facility] (2 sources) Non-steroidal anti-inflammator y agent Drug Intolerance 5 [facility] Medications Current Medications Medication Drug [...] disease (1 source) Atherosclerotic heart disease of [place] coronary artery without angina pectoris; Translations: [ASHD [place] W/O ANGINA PECTORIS] Onset: 07-01-2022 Chronic [...] Value Interpretation Reference Range Facility Office Visiton 07-05-2024 Follow-up visit [id number] Jana Williamson 1945 [facility] Provider Department Center 07/05/2024 MINE REILLY Family History Problem Relation Age of Onset Stroke Father Other Brother Diabetes Brother Family Status - Relation Status Age at Father Brother Level of Service:85119 CT OFFICE/OUTPATIENT ESTABLISHED LOW MDM 20 MIN Reason for Visit and Comments: Follow-up [244933] - 2 mo f/u event monitor confirmed 07/04 Concerns: No cardiac symptoms/concerns. Normal [facility] Office Visiton 05-06-2024 Follow-up visit [id number] Jana Williamson 1945 [facility] Provider Department Center 05/06/2024 MINE REILLY Family History Problem Relation Age of Onset Stroke Father Other Brother Diabetes Brother Family Status - Relation Status Age at Father Brother Level of Service:02389 CT OFFICE/OUTPATIENT ESTABLISHED MOD MDM 30 MIN Normal [facility] Office Visiton 11-24-2023 Follow-up visit [id number] Jana Williamson 1945 [facility] Provider Department Center 11/24/2023 MINE REILLY Family History Problem Relation Age of Onset Stroke Father Other Brother Diabetes Brother Family Status - Relation Status Age at Father Brother Level of Service:68309 CT OFFICE/OUTPATIENT ESTABLISHED LOW MDM 20 MIN Normal [facility] INSULINon 07-01-2022 Insulin 11.1 uIU/mL Normal 2.6-24.9 [facility] Comment on above: Performed By: #### I NSULIN #### [facility] [address] [place] [address] Dr. Linda Epps T4, T3U, FTI LABCORPon 07-01 Free Thyroxine Index 2.0 Normal 1.2-4.9 [facility] Comment on above: Performed By: #### T HYLC #### [facility] [address] [place] [address] Dr. Linda Epps T3 Uptake 30 % Normal 24-39 [facility] Comment on above: Performed By: #### T HYLC #### [facility] [address] [place] [address] Dr. Linda Epps T4 [Mass/Vol] 6.8 ug/dL Normal 4.5-12.0 [facility] Comment on above: Performed By: #### T HYLC #### [facility] [address] [place] [address] Dr. Linda Epps CBC AUTO DIFFon 06-30-2022 BASO # 0.0 103/ul Normal 0.0-0.1 [facility] Comment on above: Performed By: #### C BC #### [facility] [address] [place] [address] Dr. Linda Epps Basophils/100 WBC (Bld) 0.5 % Normal 0.2-2.0 [facility] Comment on above: Performed By: #### C BC #### [facility] [address] [place] [address] Dr. Linda Epps EO # 0.1 103/ul Normal 0.0-0.7 [facility] Comment on above: Performed By: #### C BC #### [facility] [address] [place] [address] Dr. Linda Epps Eosinophils/100 WBC (Bld) 1.4 % Normal 0.9-7.0 [facility] Comment on above: Performed By: #### C BC #### [facility] [address] [place] [address] Dr. Linda Epps Erythrocyte distribution width (RBC) [Ratio] 11.6 % Normal 11.0-15.0 [facility] Comment on above: Performed By: #### C BC #### [facility] [address] [address] [address] Linda Epps Hematocrit (Bld) [Volume fraction] 42.3 % Normal 42.0-54.0 [facility] Comment on above: Performed By: #### C BC #### [facility] [address] [address] [address] Linda Epps Hemoglobin (Bld) [Mass/Vol] 14.4 g/dL Normal 14.0-18.0 [facility] Comment on above: Performed By: #### C BC #### [facility] [address] [place] [address] Dr. Linda Epps IG # 0.01 10e3/ul Normal 0.00-0.03 [facility] Comment on above: Performed By: #### C BC #### [facility] [address] [place] [address] Dr. Linda Epps IG % 0.2 % Normal 0.0-0.5 [facility] Comment on above: Performed By: #### C BC #### [facility] [address] [place] [address] Dr. Linda Epps LYMPH # 0.9 103/ul Critically low 1.2-3.8 [facility] Comment on above: Performed By: #### C BC #### [facility] [address] [place] [address] Dr. Linda Epps Lymphocytes/100 WBC (Bld) 19.9 % Critically low 20.5-60.0 [facility] Comment on above: Performed By: #### C BC #### [facility] [address] [place] [address] Dr. Linda Epps MANUAL DIFF REQ NO Normal [facility] Comment on above: Performed By: #### C BC #### [facility] [address] [place] [address] Dr. Linda Epps MCH (RBC) [Entitic mass] 33.9 pg Normal 25.9-34.0 [facility] Comment on above: Performed By: #### C BC #### [facility] [address] [address] [address] Linda Epps MCHC (RBC) [Mass/Vol] 34.0 g/dL Normal 29.9-35.2 [facility] Comment on above: Performed By: #### C BC #### [facility] [address] [place] [address] Dr. Linda Epps MCV (RBC) [Entitic vol] 99.5 fL Critically high 80.0-94.0 [facility] Comment on above: Performed By: #### C BC #### [facility] [address] [place] [address] Dr. Linda Epps MONO # 0.4 103/ul Normal 0.3-0.8 [facility] Comment on above: Performed By: #### C BC #### [facility] [address] [place] [address] Dr. Linda Epps Monocytes/100 WBC (Bld) 9.5 % Normal 1.7-12.0 [facility] Comment on above: Performed By: #### C BC #### [facility] [address] [place] [address] Dr. Linda Epps NEUT # 3.0 103/ul Normal 1.4-6.5 [facility] Comment on above: Performed By: #### C BC #### [facility] [address] [place] [address] Dr. Linda Epps Neutrophils/100 WBC (Bld) 68.5 % Normal 43.0-75.0 [facility] Comment on above: Performed By: #### C BC #### [facility] [address] [place] [address] Dr. Linda Epps Platelet mean volume (Bld) [Entitic vol] 10.7 fL Normal 9.5-13.5 [facility] Comment on above: Performed By: #### C BC #### [facility] [address] [place] [address] Dr. Linda Epps PLT 156 103/ul Normal 150-450 [facility] Comment on above: Performed By: #### C BC #### [facility] [address] [place] [address] Dr. Linda Epps RBC 4.25 106/ul Critically low 4.70-6.10 [facility] Comment on above: Performed By: #### C BC #### [facility] [address] [place] [address] Dr. Linda Epps WBC 4.4 103/ul Normal 4.0-11.0 [facility] Comment on above: Performed By: #### C BC #### [facility] [address] [place] [address] Dr. Linda Epps GLYCOHEMOGLOBIN A1Con 2021 ADA RECOMMENDATION SEE BELOW Normal [facility] Comment on above: Result Comment: ADA RECOMMENDED LIMIT 4.0 - 6.0 ADA THERAPEUTIC TARGET < 7.0 ACTION SUGGESTED > 7.0 Performed By: #### A 1C #### [facility] [address] [place] [address] Dr. Linda Epps Glucose [Mass/Vol] 123 mg/dL Normal [facility] Comment on above: Performed By: #### A 1C #### [facility] [address] [place] [address] Dr. Linda Epps HbA1c (Bld) [Mass fraction] 5.9 % Normal 4.5-6.2 [facility] Comment on above: Performed By: #### A 1C #### [facility] [address] [place] [address] Dr. Linda Epps LIPID PROFILEon 06-30-2022 CHOL-HDL RATIO NORM SEE BELOW Normal [facility] Comment on above: Result Comment: 3.3 - 4.4 LOW RISK 4.4 - 7.1 AVERAGE RISK 7.1 - 11.0 MODERATE RISK >11.0 HIGH RISK Performed By: #### T SH, URIC, LIPID, CMP #### [facility] [address] [place] [address] Dr. Linda Epps Cholesterol [Mass/Vol] 154 mg/dL Normal <=200 [facility] Comment on above: Performed By: #### T SH, URIC, LIPID, CMP #### [facility] [address] [place] [address] Dr. Linda Epps Cholesterol in HDL [Mass/Vol] 53 mg/dL Normal 40-60 [facility] Comment on above: Performed By: #### T SH, URIC, LIPID, CMP #### [facility] [address] [address] [address] Linda Epps Cholesterol in LDL [Mass/Vol] 76.6 mg/dL Normal [facility] Comment on above: Performed By: #### T SH, URIC, LIPID, CMP #### [facility] [address] [address] [address] Linda Epps Cholesterol.total/Cho lesterol in HDL [Mass ratio] 2.9 {ratio} Normal [facility] Comment on above: Performed By: #### T SH, URIC, LIPID, CMP #### [facility] [address] [place] [address] Dr. Linda Epps HDL NORMAL > or = 60 mg/dl - LOW CARDIOVASCULAR RISK <40 mg/dl - HIGH CARDIOVASCULAR RISK Normal [facility] Comment on above: Performed By: #### T SH, URIC, LIPID, CMP #### [facility] [address] [place] [address] Dr. Linda Epps LDL CALC NORMAL SEE BELOW Normal [facility] Comment on above: Result Comment: <100 mg/dl OPTIMAL 100 - 129 mg/dl NEAR OR ABOVE OPTIMAL 130 - 159 mg/dl BORDERLINE HIGH 160 - 189 mg/dl HIGH >190 mg/dl VERY HIGH Performed By: #### T SH, URIC, LIPID, CMP #### [facility] [address] [place] [address] Dr. Linda Epps Triglyceride [Mass/Vol] 122 mg/dL Normal <=150 [facility] Comment on above: Performed By: #### T SH, URIC, LIPID, CMP #### [facility] [address] [place] [address] Dr. Linda Epps VLDL CALC 24.4 mg/dL Normal [facility] Comment on above: Performed By: #### T SH, URIC, LIPID, CMP #### [facility] [address] [place] [address] Dr. Linda Epps PROF 14(COMP METB)on 022 Albumin [Mass/Vol] 3.9 g/dL Normal 3.4-5.0 [facility] Comment on above: Performed By: #### T SH, URIC, LIPID, CMP #### [facility] [address] [address] [address] Linda Epps Albumin/Globulin [Mass ratio] 1.6 {ratio} Normal [facility] Comment on above: Performed By: #### T SH, URIC, LIPID, CMP #### [facility] [address] [address] [address] Linda Epps ALP [Catalytic activity/Vol] 72 U/L Normal 46-116 [facility] Comment on above: Performed By: #### T SH, URIC, LIPID, CMP #### [facility] [address] [place] [address] Dr. Linda Epps ALT [Catalytic activity/Vol] 40 U/L Normal 16-63 [facility] Comment on above: Performed By: #### T SH, URIC, LIPID, CMP #### [facility] [address] [place] [address] Dr. Linda Epps Anion gap [Moles/Vol] 11.7 mmol/L Normal [facility] Comment on above: Performed By: #### T SH, URIC, LIPID, CMP #### [facility] [address] [place] [address] Dr. iLnda Epps AST [Catalytic activity/Vol] 27 U/L Normal 15-37 [facility] Comment on above: Performed By: #### T SH, URIC, LIPID, CMP #### [facility] [address] [place] [address] Dr. Linda Epps Bilirubin [Mass/Vol] 0.8 mg/dL Normal 0.2-1.0 [facility] Comment on above: Performed By: #### T SH, URIC, LIPID, CMP #### [facility] [address] [place] [address] Dr. Linda Epps Calcium [Mass/Vol] 8.9 mg/dL Normal 8.5-10.1 [facility] Comment on above: Performed By: #### T SH, URIC, LIPID, CMP #### [facility] [address] [address] [address] Linda Epps Chloride [Moles/Vol] 102 mmol/L Normal 98-107 [facility] Comment on above: Performed By: #### T SH, URIC, LIPID, CMP #### [facility] [address] [address] [address] Linda Epps CO2 [Moles/Vol] 30.8 mmol/L Normal 21.0-32.0 [facility] Comment on above: Performed By: #### T SH, URIC, LIPID, CMP #### [facility] [address] [address] [address] Linda Epps Creatinine [Mass/Vol] 0.93 mg/dL Normal 0.70-1.30 [facility] Comment on above: Performed By: #### T SH, URIC, LIPID, CMP #### [facility] [address] [place] [address] Dr. Linda Epps EGFR-AF CANADIAN >60 Normal >=60 [facility] Comment on above: Performed By: #### T SH, URIC, LIPID, CMP #### [facility] [address] [place] [address] Dr. Linda Epps EGFR-NON AF CANADIAN >60 Normal >=60 [facility] Comment on above: Performed By: #### T SH, URIC, LIPID, CMP #### [facility] [address] [address] [address] Linda Epps Globulin (S) [Mass/Vol] 2.4 g/dL Normal [facility] Comment on above: Performed By: #### T SH, URIC, LIPID, CMP #### [facility] [address] [address] [address] Linda Epps Glucose [Mass/Vol] 131 mg/dL Critically high 74-106 [facility] Comment on above: Performed By: #### T SH, URIC, LIPID, CMP #### [facility] [address] [place] [address] Dr. Linda Epps Potassium [Moles/Vol] 3.5 mmol/L Normal 3.5-5.1 [facility] Comment on above: Performed By: #### T SH, URIC, LIPID, CMP #### [facility] [address] [place] [address] Dr. Linda Epps Protein [Mass/Vol] 6.3 g/dL Critically low 6.4-8.2 [facility] Comment on above: Performed By: #### T SH, URIC, LIPID, CMP #### [facility] [address] [place] [address] Dr. Linda Epps Sodium [Moles/Vol] 141 mmol/L Normal 136-145 [facility] Comment on above: Performed By: #### T SH, URIC, LIPID, CMP #### [facility] [address] [place] [address] Dr. Linda Epps Urea nitrogen [Mass/Vol] 10.0 mg/dL Normal 7.0-18.0 [facility] Comment on above: Performed By: #### T SH, URIC, LIPID, CMP #### [facility] [address] [place] [address] Dr. Linda Epps Urea nitrogen/Creatinine [Mass ratio] 10.8 mg/mg Normal [facility] Comment on above: Performed By: #### T SH, URIC, LIPID, CMP #### [facility] [address] [place] [address] Dr. Linda Epps TSHon 06-30-2022 TSH 2.135 uIU/mL Normal 0.358-3.740 [facility] Comment on above: Performed By: #### T SH, URIC, LIPID, CMP #### [facility] [address] [place] [address] Dr. Linda Epps URIC ACID SERUMon 06-30-2022 Urate [Mass/Vol] 6.3 mg/dL Normal 3.5-7.2 [facility] Comment on above: Performed By: #### T SH, URIC, LIPID, CMP #### [facility] [address] [place] [address] Dr. Linda Epps OCC BLD IMMUNO SCREENon 06-20 OCCULT BLOOD Negative Normal NEGATIVE [facility] Comment on above: Performed By: #### O BSCRN #### [facility] [address] [address] [address] Linda Epps Consultation Noteon 09-01-20 Consultation Note [id number]#1.00CD:127 Normal [facility] Provider Letter FTon 08-13 Provider [place] [facility] [place]que Rg [address] [place] [id number] Re: JANA WILLIAMSON Date of : 1945 Thank you for your referral of Jana Williamson who was seen on consultation on 08/06/2020 for left lower quadrant pain. I have enclosed my consultation notes for your review. Sincerely, Jadiel Epperson MD General Surgery [facility] Historical Records Officeon 08-07-2020 Historical Records Office [id number]#[id number]:127 [facility] RAD - CT Reporton 08-07-[address] - [address] Report [id number]#[id number]:127 [facility] Ambulatory Clinical Summaryo n 08-06-2020 Ambulatory Clinical Summary {[id number]}CD:20607 8 Normal [facility] General Surgery Office/Clini c Noteon 08-06-2020 [...] HINKLE, Jadiel Schultz Only if needed [address] [place] [address]- Additional Instructions: Problem List/Past Medical [...] EDT Provider Letter FTon 07-16 Provider [place] [facility] Jacque Ifrah [address] [place] [address] Re: JANA WILLIAMSON Date of : 1945 Thank you for your referral of Jana Williamson who was seen on consultation on 07/09/2020 for foreign body of knee. I have enclosed my consultation notes for your review. Sincerely, Jadiel Epperson MD General Surgery [facility] Physician Referralon 020 Physician Referral [id number]#[id number]:127 [facility] Ambulatory Clinical Summaryo n 07-09-2020 Ambulatory Clinical Summary {[id number]}CD:[id number] 8 [facility] General Surgery Office/Clini c Noteon 07-09-2020 [...] in subcutaneous tissue, recommend orthopedic evaluation. Ordered: [facility] External Ambulatory Referral 2. Foreign body of [...] Hypertension: Mother and Father. Stroke: Father. Normal [facility] Comment on above: Result Comment: Elec tronically Signed By: GORDON HINKLE, Jadiel Smith\Date and Time Signed: 07/09/20 13:30 EDT Physician Referralon 020 Physician Referral [id number]#[id number]:127 Normal [facility] Encounters Encounter Date Encounter Type Care Provider Facility Start: 07-05-2024 End: 07-05-2024 ambulatory [facility] Start: 05-06-2024 End: 05-06-2024 ambulatory [facility] Start: 03-22-2024 End: 03-22-2024 ambulatory JOHN RINALDI Not Available Start: 12-22-2023 Bamboo flowsheet John Bocanegra hler DO Work Phone: [facility] Start: 12-22-2023 Bamboo flowsheet John Bocanegra hler DO Work Phone: [facility] Start: 12-22-2023 End: 12-22-2023 ambulatory JOHN RINALDI Not Available Start: 12-22-2023 End: 12-22-2023 Postop follow up visit related to original px John Rinaldi DO Work Phone: [facility] Comment on above: Pseudophakia (Primar y Dx) Start: 11-24-2023 End: 11-24-2023 ambulatory [facility] Start: 11-22-2023 End: 11-22-2023 ambulatory JOHN RINALDI Not Available Start: 11-16-2023 End: 11-16-2023 ambulatory JOHN RINALDI Not Available Start: 11-07-2023 End: 11-07-2023 ambulatory JOHN RINALDI Not Available Start: 11-01-2023 End: 11-01-2023 ambulatory JOHN RINALDI Not Available Start: 06-30-2022 End: 07-01-[address] JACQUE RG Facility:[facility] Start: 10-17-2017 End: 10-18-2017 Ambulatory DEFAULT PHYSICIAN Facility:[facility] Procedures Date Procedure Procedure Detail Performing Clinician Start: 07-05-2024 Follow-up visit Follow-up MINE SANTOS Start: 06-30-[address] MINA RG Comment on above: Performed By: #### P [facility] #### [facility] [address] [place], [place] [address] Dr. Linda Epps Plan of Treatment Date Care Activity Detail Author Start: 12-22-2023 End: 12-22-2023 Patient encounter procedure 12/22/2023 8:30 AM EST Office Visit [facility] [address] [place] [address] John Rinaldi DO [address] [place] [address] Arrived [facility] Comment on above: Arrived Start: 07-21-2023 Influenza vaccination Influenza Vacc ine (#1) [facility] Start: 2010 Pneumococcal Vaccine : 65+ Years (1 - PCV) Pneumococcal Vaccine: 65+ Years (1 - PCV) [facility] Payers Date Payer Category Payer Unknown 2015 Medicare MEDICARE MEDICAR E PART B [id number] 2015-Present [address] [address] [place] [address] Medicare [id number] 1959 Medicare [id number] 1959 Unknown [id number] 1945 Unknown [id number] 1945 Unknown [id number] 1945 Unknown [id number] 1945 Unknown [id number] 1945 Unknown [id number] 1945 Unknown [id number] 1945 Unknown [id number] Social History Date Type Detail Facility Start: 09-26-2023 Tobacco smoking status TXIS Ex-smoke r [facility] History of tobacco use Current smoker [facility] History of tobacco use Cigarette Smoker [facility] Start: 09-26-2023 Tobacco use and exposure Smoke less tobacco non-user [facility] Start: 11-22-2023 End: 12-22-2023 Alcohol intake Current drinker of alcohol (finding) [facility] Start: 10-10-2023 History of Social function [facility] Start: 10-10-2023 Alcohol Use Disorder Identification Test - Consumption [AUDIT-C] [facility] How often to you hav e a drink containing alcohol? 4 or more times a week [facility] How many standard dr inks containing alcohol do you have on a typical day? 5 or 6 [facility] How often do you hav e 6 or more drinks on 1 occasion? Daily or almost daily [facility] Start: 10-10-2023 Alcohol Comment caffeine intak e: 1-2 cups per day of decaff coffee [facility] Start: 1945 Sex Assigned At Not on file N [facility] Progress note 07-05-2024 Note Date & Type Note Facility 07-05-2024 Note Cardiology Follow Up Progress Note HPI: Mr. Williamson is a 76-year-old gentleman who presents to cardiology clinic for follow-up in regards to his paroxysmal atrial fibrillation and hypertension Patient has a history of GI bleeding, and as such, he has not been anticoagulated for his atrial fibrillation despite an elevated [id number] score. He adamantly refuses anticoagulation given his history, despite multiple discussions and no recent GI bleeds. Patient was seen in 04/2024 for hospital follow up after presenting with syncopal episode, afib w/ RVR and elevated troponin and uncontrolled hypertension. He is not anticoagulated due to hx of severe GI bleed. At the time of syncope, patient was outside drinking. He had an elevated ETOH level in the ER. He denies any dizziness or lightheadedness prior to passing out. No chest pain or shortness of breath. 30-day event monitor was performed to rule out malignant arrhythmias. Patient was noted to have a 3-second pause during his sleep. Additionally, he was noted to have a heart rates in the 30s. Patient adamantly denies any symptoms. He states that he feels well. He adamantly denies any chest pain or shortness of breath. He denies any lower extremity edema, orthopnea, or paroxysmal nocturnal dyspnea. He says sign normal body well more than the monitor. Cardiology ROS: 10 point ROS is performed and is negative unless otherwise specified in HPI. Medications Current Outpatient Medications on File Prior to Visit Medication Sig Dispense Refill buPROPion XL (Wellbutrin XL) 150 mg 24 hr tablet Take 150 mg by mouth in the morning. hydroCHLOROthiazide (HYDRODiuril) 25 mg tablet Take 25 mg by mouth in the morning. isosorbide mononitrate ER (Imdur) 30 mg 24 hr tablet Take 1 tablet (30 mg) by mouth in the morning. Do not crush or chew. 90 tablet 3 metoprolol succinate XL (Toprol-XL) 100 mg 24 hr tablet Take 100 mg by mouth in the morning. omeprazole (PriLOSEC) [address] capsule omeprazole 20 mg capsule,delayed release simvastatin (Zocor) 20 mg tablet Take 20 mg by mouth at bedtime. terazosin (Hytrin) 10 mg capsule terazosin 10 mg capsule [DISCONTINUED] isosorbide mononitrate ER (Imdur) 60 mg 24 hr tablet Take 60 mg by mouth in the morning. lisinopril 10 mg tablet Take 1 tablet (10 mg) by mouth once daily as directed. 90 tablet 3 [DISCONTINUED] cloNIDine (Catapres) 0.1 mg tablet Take 0.1 mg by mouth in the morning and at bedtime. [DISCONTINUED] lisinopril 20 mg tablet Take 20 mg by mouth in the morning. [DISCONTINUED] vit C,B-Oe-dxhgf-lutein-zeaxan (PreserVision AREDS-2) 250-90-40-1 mg capsule Take by mouth. No current facility-administered medications on file prior to visit. Allergies Nsaids (non-steroidal anti-inflammatory drug) Physical Exam VITAL SIGNS: BP 136/74 (BP Location: Left arm, Patient Position: Sitting, BP Cuff Size: Adult) Pulse 63 Resp 16 Ht 1.727 m (5' 8 ) Wt 84.4 kg (186 lb) SpO2 98% BMI 28.28 kg/m??? Constitutional: Well developed, Well nourished, No [...] denies any recent bleeding -HTN: well controlled -HLD -Syncope -Elevated troponin -3 second pause, bradycardia on monitor: reportedly asymptomatic Plan: -Continue toprol for afib -Continue toprol HTN. Lisinopril has been stopped and Bp well controlled at home per patient. -Continue simvastatin for HLD -Patient adamantly denies any invasive procedures. He declines pacemaker evaluation/therapy. He understands the risks -Given elevat (more content not included)... [facility] Progress note 05-06-2024 Note Date & Type Note Facility 05-06-2024 Note Cardiology Follow Up Progress Note HPI: Mr. Williamson is a 76-year-old gentleman who presents to cardiology clinic for follow-up in regards to his paroxysmal atrial fibrillation and hypertension Patient has a history of GI bleeding, and as such, he has not been anticoagulated for his atrial fibrillation despite an elevated [id number] score. He adamantly refuses anticoagulation given his history, despite multiple discussions and no recent GI bleeds. Patient here for follow up [facility] admission for syncopal episode, afib w/ [...] mg capsule terazosin 10 mg capsule vit C,R-Ja-bobii-lutein-zeaxan (PreserVision AREDS-2) 250-90-40-1 mg capsule Take by [...] revisited the patient's risk of stroke given Rosanna hays. I discussed with him options including anticoagulation [...] sooner as needed (more content not included)... [facility] History of Present illness Narrative 12-22-2023 [...] this eye today. documented in this encounter [facility] Progress note 11-24-2023 Note Date & Type Note Facility 11-24-2023 Note Patient here for 1 y ear follow up PAF and hypertension. He had routine labs in Jun 2023. He is not anticoagulated due to hx of GI bleed. Denies chest pain, SOB, and palpitations. He's doing very well. Review of Systems Musculoskeletal: Positive for arthritis. All other systems reviewed and are negative. [facility] Progress note 11-24-2023 Note Date & Type Note Facility 11-24-2023 Note Cardiology Follow Up Progress Note Chief Complaint: [facility] clinic follow up HPI: Mr. Williamson [...] for his atrial fibrillation despite an elevated [id number]-[id number] score. He adamantly refuses anticoagulation given his [...] mg capsule terazosin 10 mg capsule vit C,E-Sd-svdgc-lutein-zeaxan (PreserVision AREDS-2) 250-90-40-1 mg capsule Take by [...] needed Mine Santos MD Interventional Cardiology [facility] Evaluation note Note Date & [...] section and content) DATE CREATED AUTHOR 05/15/2018 [facility] DATE CREATED AUTHOR AUTHOR'S ORGANIZ ATION 09/02/2020 [facility] DATE CREATED AUTHOR AUTHOR'S ORGANIZ ATION 07/02/2022 [facility] DATE CREATED AUTHOR AUTHOR'S ORGANIZ ATION 03/23/2024 [facility] EPIC DATE CREATED AUTHOR AUTHOR'S ORGANIZ ATION 07/07/2024 [facility] Care Teams (unrecognized sec tion and content) Drapery Examiner Relationship Specialty Start Date End Date Jacque Rg MD [address] [place] [address] PCP - General Family Medicine 09/26/23 Drapery Examiner Relationship Specialty Start Date End Date Jacque Rg MD [address] [place] [address] PCP - General Family Medicine 09/26/23 Reason [...] BE BASED ON THE PRIMARY CLINICAL RECORDS. [facility] provides no warranty or guarantee of the accuracy or completeness of information in this document.
[2024-07-11 09:48] LABS: Basophils Percent Auto 0.5 % (0.2-2.0); Eosinophils Absolute Auto 0.1 10^3/uL (0.0-0.7); Eosinophils Percent Auto 0.9 % (0.9-7.0); Hematocrit 40.5 % (42.0-54.0); Hemoglobin 13.8 g/dL (14.0-18.0); Immature Granulocytes Abs Auto 0.01 10^3/uL (0.00-0.03); Immature Granulocytes Pct Auto 0.2 % (0.0-0.5); Lymphocytes Absolute Auto 1.1 10^3/uL (1.2-3.8); Lymphocytes Percent Auto 19.1 % (20.5-60.0); Mean Corpuscular HGB Conc 34.1 g/dL (29.9-35.2); Mean Corpuscular Hemoglobin 33.9 pg (25.9-34.0); Mean Corpuscular Volume 99.5 fL (80.0-94.0); Mean Platelet Volume 10.4 fL (9.5-13.5); Monocytes Absolute Auto 0.5 10^3/uL (0.3-0.8); Monocytes Percent Auto 9.1 % (1.7-12.0); Neutrophils Absolute Auto 3.9 10^3/uL (1.4-6.5); Neutrophils Percent Auto 70.2 % (43.0-75.0); Platelet Count 171 10^3/uL (150-450); Red Blood Count 4.07 10^6/uL (4.70-6.10); White Blood Count 5.6 10^3/uL (4.0-11.0)
[2024-07-11 10:23] LABS: Estimated Average Glucose 108 mg/dL; Glycohemoglobin A1C 5.4 % (4.5-6.2)
[2024-07-11 10:34] LABS: Alanine Aminotransferase 31 U/L (16-63); Albumin Globulin Ratio 1.5; Albumin Level 3.7 g/dL (3.4-5.0); Alkaline Phosphatase 95 U/L (46-116); Anion Gap 11.4; Aspartate Amino Transferase 22 U/L (15-37); BUN Creatinine Ratio 15.6; Bilirubin Total 0.9 mg/dL (0.2-1.0); Calcium 9.1 mg/dL (8.5-10.1); Carbon Dioxide 31.7 mmol/L (21.0-32.0); Chloride 103 mmol/L (98-107); Chol HDL Ratio 3.1; Cholesterol 173 mg/dL (<=200); Estimated GFR (African America >60 (>=60); Estimated GFR (Non-African Ame >60 (>=60); Free T3 2.89 pg/mL (2.18-3.98); Globulin 2.4 g/dL; Glucose 104 mg/dL (74-106); HDL Cholesterol 56 mg/dL (40-60); LDL Cholesterol Calculated 92.2 mg/dL; Potassium 4.1 mmol/L (3.5-5.1); Sodium 142 mmol/L (136-145); Thyroid Stimulating Hormone 1.813 uIU/mL (0.358-3.740); Total Protein 6.1 g/dL (6.4-8.2); Triglycerides 124 mg/dL (<=150); VLDL CHOLESTEROL 24.8 mg/dL
== END 2024-07-11 09:10 | disposition home or self-care (01) ==
LOC: LAB 09:12
PROVIDERS: PCP Family Medicine; Visit Provider Family Medicine
DX: R73.09 Other abnormal glucose (principal); I10 Essential (primary) hypertension; I48.91 Unspecified atrial fibrillation; E78.00 Pure hypercholesterolemia, unspecified; M48.061 Spinal stenosis, lumbar region without neurogenic claudication; Z12.5 Encounter for screening for malignant neoplasm of prostate
CPT/HCPCS: 36415; 80053; 80061; 83036; 84436; 84443; 84481; 85025; G0103

== ENCOUNTER 2024-08-12 08:04 | Outpatient (OUT) | payer MEDICARE, OTHER, SELFPAY ==
--- NOTE | 2024-08-12 | XR_ITS ---
[address] [address] Patient Name: JANA MUKHERJEE MRN: [id number] date: 1945 Sex: M Assigned Patient Location: Current Patient Location: Accession/Order Number: [id number] Exam Date: 08/12/2024 08:06 Report Date: 08/14/2024 06:29 At the request of: BLADIMIR CHAUDHRY Procedure: XR knee RT 2V PROCEDURE: XR knee RT 2V HISTORY: RIGHT KNEE PAIN COMPARISON: XR knee right 06/17/2024 FINDINGS: BONES:Prior transverse fracture through the patella with 3.6 mm step-off along the articular surface. Increased density of the fracture line compatible with bone healing. SOFT TISSUES:No visible soft tissue swelling. EFFUSION:None visible. OTHER: Negative. XR/XR knee RT 2V IMPRESSION: 1. Ongoing bone healing of prior patella fracture with stable alignment including prominent articular surface step off. Electronically authenticated by: BLADIMIR CARABALLO Date: 08/14/2024 06:29
== END 2024-08-12 08:05 | disposition home or self-care (01) ==
LOC: EC 08:05
PROVIDERS: PCP Family Medicine; Visit Provider Orthopaedic Surgery
DX: S82.021D Displaced longitudinal fracture of right patella, subsequent encounter for closed fracture with routine healing (principal)
CPT/HCPCS: 73560

== ENCOUNTER 2025-07-09 09:03 | Outpatient (OUT) | payer MEDICARE, OTHER, SELFPAY ==
--- OUTSIDE RECORDS SUMMARY | 2021-03-15 04:00 | XMS_ITS | Continuity of Care Document ---
Author Name [facility] Organization [facility] Care Team Providers Care Biogeographer Name Role Phone [facility] Unavailable Unavailable Problems Combined list of problems from Department of Defense and Veterans Affairs facilities. It does not include entries that were removed or entered in error. Problem Status Onset Date Problem Type Date of Resolution Comments Source Alcohol abuse Active Condition [facility] Benign prostatic hyperplasia (SNOMED CT 806716469) Active Condition [facility] Essential hypertension (SNOMED CT 48333106) Active Condition [facility] H/O: atrial fibrillation Active Condition [facility] Hyperlipidemia (SNOMED CT 01968640) Active Condition [facility] Medications Combined list of outpatient medications from Department of [facility] and Veterans Affairs facilities.Medications provided include 1) outpatient medications from the last 15 months, and 2) patient-reported medications. Medication Details Route Status Patient Instructions Prescription Expires Prescription Number Last Dispense Date Ordering Provider Order Date Order Qty Source ACETAMINOPH EN/DIPHENHY DRAMINE TAB TAKE TWO TABLETS BY MOUTH AT BEDTIME NEEDED ORAL ACTIVE JOSEPH KHAN I A 2013 [facility] BISACODYL 5MG TAB,EC TAKE TWO TABLETS BY MOUTH PRN ORAL ACTIVE ALEXIS VILLAGRAN 2017 [facility] BOOST ENERGY (VANILLA) LIQUID,NUTR ITIONAL SUPPLEMENT TAKE BY MOUTH IN THE MORNING ORAL ACTIVE ALEXIS VILLAGRAN 2017 [facility] CLONIDINE HCL 0.1MG TAB TAKE ONE TABLET BY MOUTH TWICE A DAY ORAL ACTIVE ALEXIS VILLAGRAN 2015 [facility] HYDROCHLORO THIAZIDE 25MG TAB TAKE ONE TABLET BY MOUTH EVERY MORNING ORAL ACTIVE ALEXIS VILLAGRAN 2013 [facility] LISINOPRIL 20MG TAB TAKE ONE TABLET BY MOUTH EVERY DAY ORAL ACTIVE ALEXIS VILLAGRAN 2015 [facility] METOPROLOL TARTRATE 50MG TAB TAKE ONE TABLET BY MOUTH TWICE A DAY ORAL ACTIVE ALEXIS VILLAGRAN 2015 [facility] MULTIVITAMI NS W/MINERALS TAB TAKE ONE TABLET BY MOUTH EVERY DAY ORAL ACTIVE JOSEPH KHAN 2013 [facility] OMEPRAZOLE 20MG CAP,EC TAKE 1 CAPSULE BY MOUTH EVERY MORNING, ON AN EMPTY STOMACH ORAL ACTIVE ALEXIS VILLAGRAN L 2015 [facility] SIMVASTATIN 40MG TAB TAKE ONE-HALF TABLET BY MOUTH AT BEDTIME ORAL ACTIVE ALEXIS VILLAGRAN L 2013 [facility] TERAZOSIN HCL 10MG CAP TAKE 1 CAPSULE BY MOUTH AT BEDTIME ORAL ACTIVE ALEXIS VILLAGRAN L 2013 [facility] Allergies, Adverse Reactions, Alerts Combined list of allergies from Department of Defense and Veterans Affairs facilities. It does not include entries that were removed or entered in error. Substance Category Reaction Severity Reaction type Status Date Reported Comments Source NONSTEROIDAL ANTI-INFLAMM ATORY Propensity to adverse reactions to drug (finding) Gastric ulcer with hemorrhage active 6 KATELYN Hope [facility] Immunizations Combined list of available immunizations from the Department of Defense and Veterans Affairs facilities. Immunization Series Date Given Administered By Site Reaction Lot Number CVX Code Drug Paper Ruler Status Comments Source COVID-19 (MODERNA), MRNA, LNP-S, PF, 100 MCG/0.5 ML DOSE 2 2020 207 complet maile LORENZ ND [facility] COVID-19 (MODERNA), MRNA, LNP-S, PF, 100 MCG/0.5 ML DOSE 1 2020 207 complet ed [facility] Social History Combined list of available smoking, tobacco, and other social history from Department of Defense and Veterans Affairs facilities. Social History Type Response Date Comment Sourc e Tobacco smoking status SCIS VA-TOBACCO QUIT 15 YRS OR MORE 03/15/2021 [facility] History of tobacco use VA-TOBACCO FORMER USER 03/15/2021 [facility] History of tobacco use VA-TOBACCO QUIT 5 TO < 15 YRS 01/31/2019 [facility] History of tobacco use QUIT TOBACCO >7 YEARS AGO 4 [facility] History of tobacco use QUIT TOBACCO >12 MO and <7 YRS AGO 07/16/2008 [facility] History of tobacco use QUIT TOBACCO IN T HE LAST 12 MONTHS 05/14/2007 [facility] Advance Directives List of completed, amended, or rescinded Advance Directives on record at Department of [facility] facilities. An actual copy of the Directive is not included. Date Advance Directive Provider Source 04/06/2018 ADVANCE DIRECTIVE TONA,BAUTISTA [facility] 04/06/2018 ADVANCE DIRECTIVE DISCUSSION ROLL,DARION MONTIEL
--- OUTSIDE RECORDS SUMMARY | 2025-07-09 09:08 | XMS_ITS | Clinical Summary ---
Demographics Address [facility] [address] [place] [address] Home Phone Preferred Language Unknown Marital Status Temple Affiliation Unknown Race White Ethnic Group Not or Lati no Author Organization [employer] [facility] Address [id number] [place] [address] Care Team Providers Care Bun Machine Operator Name Role Phone Unavailable Primary Care Provider Unavailabl e Social History Tobacco Use Types Packs/Day Years Used Date Smoking Tobacco: Never Assessed Childcare Answer Date Recorded Childcare Unknown 05/01/2019 Employment Answer Date Recorded Employment Unknown 05/01/2019 Sex and Gender Information Value Date Recorded Sex Assigned at Not on file Legal Sex Male 11:35 AM EDT Gender Identity Not on file Sexual Orientation Not on file Plan of Treatment Not on file Medical Devices Not on file
--- OUTSIDE RECORDS SUMMARY | 2025-07-09 09:08 | XMS_ITS | Clinical Summary ---
Demographics Address [address] [place] [address] Home Phone Preferred Language Filipino Marital Status Quaker Affiliation Unknown Race Unknown Ethnic Group Not or Lati no Author Organization [facility] Address [address] [place] [address] Care Team Providers Care Assembly Technician Name Role Phone Claudio Rg MD Primary Care Provider [phone] Allergies Active Allergy Reactions Criticality Noted Date Comments Nsaids High 10/10/2015 Duodenal Ulcer with severe hemorrhage 09/2015 Medications lisinopril (PRINIVIL;ZESTR IL) 40 MG tablet Take 20 mg by mouth daily Active cloNIDine (CATAPRES) 0.1 MG tablet Take 0.1 mg by mouth 2 times daily Active simvastatin (ZOCOR) 20 MG tablet Take 20 mg by mouth nightly Active terazosin (HYTRIN) 5 MG capsule Take 10 mg by mouth nightly Active hydrochlorothia zide (HYDRODIURIL) 25 MG tablet Take 25 mg by mouth daily Active docusate sodium (COLACE) 100 MG capsule Take 1 capsule by mouth 2 times daily as needed for Constipation 20 capsule 0 5 Active omeprazole (PRILOSEC) 20 MG capsule Take 20 mg by mouth Daily Active HYDROcodone-halina taminophen (NORCO) 5-325 MG per tablet Take 1 tablet by mouth every 6 hours as needed for Pain Active metoprolol (LOPRESSOR) 50 MG tablet Take 50 mg by mouth 2 times daily Active Nutritional Supplements (BOOST HIGH PROTEIN) LIQD Take 1 Can by mouth daily Active Active Problems Problem Noted Date Diagnosed Date Hypocalcemia 10/11/2015 Acute respiratory failure 10/10/2015 s/p pyroplasty and over sewing of dueodnal ulcer 10/10/2015 Hypokalemia 10/10/2015 Essential hypertension 10/05/2015 Atrial fibrillation 10/05/2015 Duodenal ulcer with hemorrhage 10/02/2015 Hypomagnesemia 10/02/2015 Acute blood loss anemia 10/02/2015 Alcohol abuse 10/02/2015 NSAID long-term use 10/02/2015 Resolved Problems Problem Noted Date Diagnosed Date Resolved Date Hemorrhagic shock 10/10/2015 10/10/2015 Alcohol withdrawal syndrome without complication 10/05/2015 10/10/2015 Hypophosphatemia 10/02/2015 10/05/2015 Social History Tobacco Use Types Packs/Day Years Used Date Smoking Tobacco: Former Alcohol Use Standard Drinks/Week Comments Yes 140 (1 standard drink = 0.6 oz p ure alcohol) Sex and Gender Information Value Date Recorded Sex Assigned at Not on file Legal Sex Male 3:26 PM EST Gender Identity Not on file Sexual Orientation Not on file Last Filed Vital Signs Vital Sign Reading Time Taken Comments Blood Pressure 133/85 12/24/2015 8:54 AM EST Pulse 60 12/24/2015 8:54 AM EST Temperature 36.1 C (97 F) 12/24/2015 8:54 AM EST Respiratory Rate 16 12/24/2015 8:54 AM EST Oxygen Saturation 98% 10/22/2015 8:00 AM EST Inhaled Oxygen Concentration - - Weight 83.9 kg (185 lb) 12/24/2015 8:54 AM EST Height 172.7 cm (5' 8 ) 12/24/2015 8:54 AM EST Body Mass Index 28.13 12/24/2015 8:54 AM EST Plan of Treatment Not on file Insurance * Guarantor: Alhaji Williamson Account Type Relation to Patient Date of Phone Billing Address Personal/Family Self 1945 [address] [place] [address] MEDICARE [employer] COMMERCIAL MEDICARE Advance Directives * Full Code (Latest Code Status on File) Date Activated Date Inactivated Comments 10/02/2015 6:27 PM 10/22/2015 8:52 PM Care Teams Assembly Technician Relationship Specialty Start Date End Date Claudio Rg MD [address] [place] [address] PCP - General 10/02/15
--- OUTSIDE RECORDS SUMMARY | 2025-07-09 09:08 | XMS_ITS | Clinical Summary ---
Demographics Address [address] [place] [address] Home Phone Preferred Language en Marital Status Spiritism Affiliation Unknown Race White Ethnic Group Not or Lati no Author Organization [facility] Address [address] [place] [address] Care Team Providers Care Cadmium Plater Name Role Phone Claudio Rg MD Primary Care Provider [phone] Allergies Active Allergy Reactions Criticality Noted Date Comments Nsaids (Non-Steroidal Anti-Inflammatory Drug) Unknown High 10/10/2015 Duodenal Ulcer with severe hemorrhage 09/2015 Medications metoprolol succinate XL (Toprol-XL) 100 mg 24 hr tablet Take 100 mg by mouth in the morning. Active omeprazole (PriLOSEC) [address] capsule omeprazole 20 mg capsule,delayed release Active simvastatin (Zocor) 20 mg tablet Take 20 mg by mouth at bedtime. Active terazosin (Hytrin) 10 mg capsule terazosin 10 mg capsule Active hydroCHLOROthiaz markus (HYDRODiuril) 25 mg tablet Take 25 mg by mouth in the morning. Active buPROPion XL (Wellbutrin XL) 150 mg 24 hr tablet Take 150 mg by mouth in the morning. 4 Active lisinopril 10 mg tabletIndication s:Persistent atrial fibrillation (CMS/HCC) Take 1 tablet (10 mg) by mouth once daily as directed. 90 tablet 3 4 Active Additional Information Patient not taking.Reported on 06/23/2025 isosorbide mononitrate ER (Imdur) 30 mg 24 hr tabletIndication s:Persistent atrial fibrillation (CMS/HCC) Take 1 tablet (30 mg) by mouth in the morning. Do not crush or chew. 90 tablet 3 4 Active cloNIDine (Catapres) 0.1 mg tablet Take 0.1 mg by mouth in the morning and at bedtime. 6 Active Active Problems Problem Noted Date Diagnosed Date PCO (posterior capsular opacification), bilatera l 05/06/2024 Displaced longitudinal fract ure of right patella, initial encounter for closed fracture 05/06/2024 Syncope 05/06/2024 Blepharitis of upper and lower eyelids of both e yes 03/22/2024 Benign prostatic hyperplasia 11/24/202303/2024 History of atrial fibrillation 11/24/2023 0 11/24/2023 Pseudophakia 11/01/2023 11/24/2023 Age-related nuclear cataract of both eyes 202211/24/2023 Dry eyes 09/26/2023 11/24/2023 Intermediate stage nonexudat robin age-related macular degeneration of both eyes 09/26/2023 11/24/2023 Anemia 11/22/2022 Hyperlipidemia 11/22/2022 Gastrointestinal hemorrhage 11/22/2022 Leukocytosis 11/22/2022 Sinus tachycardia 11/22/2022 Diverticulosis of intestine, part unspecified, without perforation or abscess with bleeding 10/22/2015 11/24/2023 Muscle weakness (generalized) 10/22/2015 Other symbolic dysfunctions 10/22/201[address] 03/2024 Polyosteoarthritis, unspecified 10/22/2015 11/24/2023 Unspecified protein-calorie malnutrition 015 11/24/2023 Hypocalcemia 10/11/2015 Acute respiratory failure 10/10/2015 Hypokalemia 10/10/2015 Atrial fibrillation 10/05/2015 Essential hypertension 10/05/2015 Acute blood loss anemia 10/02/2015 Alcohol abuse 10/02/2015 Duodenal ulcer with hemorrhage 10/02/2015 Hypomagnesemia 10/02/2015 NSAID long-term use 10/02/2015 Encounters Date Type Department Care Team Description 06/23/2025 9:15 AM EDT Office Visit [place] [address] [place] [address] Larry Milian MD PAF (paroxysmal atrial fibrillation) (CMS/HCC) (Primary Dx); Mixed hyperlipidemia; Primary hypertension; History of gastrointestinal bleeding from Last 3 Months Family History Medical History Relation Name Comments Diabetes Brother malignant neoplastic disease Brother Stroke Father Relation Name Status Comments Brother Father Mother Social History Tobacco Use Types Packs/Day Years Used Date Smoking Tobacco: Former Cigarettes Smokeless Tobacco: Never Alcohol Use Standard Drinks/Week Comments Not Currently 0 (1 standard drink = 0.6 oz pur e alcohol) [place] Safety & Environment Answer Date Rec orded Fear of Current or Ex-Partner Not on file Emotionally Abused Not on file 01/11/2024 Physically Abused Not on file 01/11/2024 Sexually Abused Not on file 01/11/2024 Physically or Sexually Abused Not on file Sex and Gender Information Value Date Recorded Sex Assigned at Male 06/18/2025 4:19 PM EDT Legal Sex Male 10:46 PM EDT Gender Identity Male 06/18/2025 4:19 PM EDT Sexual Orientation Heterosexual or Straight 05/22 4:19 PM EDT Last Filed Vital Signs Vital Sign Reading Time Taken Comments Blood Pressure 150/86 06/23/2025 8:46 AM EDT Pulse 78 06/23/2025 8:46 AM EDT Temperature - - Respiratory Rate 16 07/05/2024 9:07 AM EDT Oxygen Saturation 96% 06/23/2025 8:46 AM EDT Inhaled Oxygen Concentration - - Weight 92.5 kg (204 lb) 06/23/2025 8:46 AM EDT Height 172.7 cm (5' 8 ) 06/23/2025 8:46 AM EDT Body Mass Index 31.02 06/23/2025 8:46 AM EDT Plan of Treatment Health Maintenance Due Date Last Done Comments Medicare Annual Wellness (AWV) 1945 Depression Screening 1957 Adult Tetanus 1967 Pneumococcal Vaccine: 50+ Years (1 of 1 - PCV) 1995 Zoster Vaccines (1 of 2) 1995 Fall Risk Screening 2010 COVID-19 Vaccine ( season) 2024 09/25/2024, 09/20/2023, 08/27/2022, Additional history exists Influenza Vaccine (#1) 2025 HIB Vaccines Aged Out No longer eligi ble based on patient's age to complete this topic HPV Vaccines Aged Out No longer eligi ble based on patient's age to complete this topic IPV Vaccines Aged Out No longer eligi ble based on patient's age to complete this topic Meningococcal B Vaccine Aged Out No l onger eligible based on patient's age to complete this topic Meningococcal Vaccine Aged Out No peng tunde eligible based on patient's age to complete this topic Rotavirus Vaccines Aged Out No longer eligible based on patient's age to complete this topic Insurance * Guarantor: Alhaji Williamson Account Type Relation to Patient Date of Phone Billing Address Personal/Family Self 1945 [address] [place] [address] MEDICARE [employer] [place] Care Teams Cadmium Plater Relationship Specialty Start Date End Date Claudio Rg MD [address] [place] [address] PCP - General 11/22/22
--- OUTSIDE RECORDS SUMMARY | 2025-07-09 09:14 | XMS_ITS | CCD ---
Author Organization [facility] Care Team Providers Care Central Supply Technician Supervisor Name Role Phone PHYSICIAN, DEFAULT Unavailable Unavailable PHYSICIAN, DEFAULT Unavailable Unavailable DR JACQUE RG Attending Unavailable DR JACQUE RG Consulting Unavailable DR JACQUE RG Primary Care Unavailable DR JACQUE RG Admitting Unavailable Jacque Rg MD Primary Care Provider [phone] ANGELO PATEL Attending Unavailable MINE REYNOSO Attending Unavailable Jacque Rg MD Primary Care Provider [phone] JOHN LIN Attending Unavailable CEM GROSS Attending Unavailable JOHN LIN Attending Unavailable Allergies Allergy Classification Reported Allergen(s) Allergy Type Date of Onset Reaction(s) Facility (2 sources) NSAIDs; Translations: [NSAIDS (NON-STEROIDAL ANTI-INFLAMMATOR Y DRUG)] Drug allergy (disorder) 5 [facility] Repository (9 sources) Ibuprofen Drug Allergy 3 [facility] Healthcare (9 sources) Non-steroidal anti-inflammator y agent Drug Intolerance 5 [facility] Medications Current Medications Medication Drug Class(es) Dates Sig (Normalized) Sig (Original) 24 hr buPROPion hydrochloride 150 mg extended release oral tablet (6 sources) Aminoketone Start: 04-23-20 24 take 1 tablet by mouth every twenty-four hours in the morning buPROPion XL (Wellbutrin XL) 150 MG 24 hr tablet Take 150 mg by mouth in the morning. 04/23/2024 Active ciprofloxacin 500 mg oral tablet (9 sources) Quinolone Antimicrobial take 1 tablet by mouth twice daily ciprofloxacin (Cipro) 500 MG tablet Take 1 tablet twice a day by oral route. Active cloNIDine hydrochloride 0.1 mg oral tablet (9 sources) Central alpha-2 Adrenergic Agonist take 1 tablet by mouth twice daily cloNIDine (Catapres) 0.1 MG tablet Take 1 tablet twice a day by oral route. Active hydroCHLOROthiazide 25 mg oral tablet (9 sources) Thiazide Diuretic take 1 tablet by mouth in the morning hydroCHLOROthiazide (HYDRODiuril) 25 MG tablet Take 1 tablet by mouth in the morning. Active 24 hr isosorbide mononitrate 30 mg extended release oral tablet (6 sources) Nitrate Vasodilator Start: 05-06-20 24 End: 05-06-20 25 take 1 tablet by mouth in the morning, then take 1 tablet by mouth every twenty-four hours isosorbide mononitrate ER (Imdur) 30 MG 24 hr tablet Take 30 mg by mouth in the morning. 05/06/2024 Active ketorolac tromethamine 5 mg/ml ophthalmic solution (9 sources) Nonsteroidal Anti-inflammatory Drug, Cyclooxygenase Inhibitor Start: 11-01-20 23 take 1 drop(s) into the eye(s) twice daily at bedtime ketorolac (Acular) 0.5 % ophthalmic solution INSTILL 1 DROP INTO AFFECTED EYE(S) TWICE A DAY ( IN THE MORNING AND BEFORE BEDTIME ) 11/01/2023 Active labetalol hydrochloride 200 mg oral tablet (9 sources) beta-Adrenergic Marbin take 1 tablet by mouth twice daily labetalol (Normodyne) 200 MG tablet Take 1 tablet twice a day by oral route. Active lisinopril 20 mg oral tablet (9 sources) Angiotensin Converting Enzyme Inhibitor take 1 tablet by mouth once daily lisinopril 20 MG tablet Take 1 tablet every day by oral route for 30 days. Active 24 hr metoprolol succinate 100 mg extended release oral tablet (18 sources) beta-Adrenergic Marbin take 1 tablet by mouth every twenty-four hours in the morning metoprolol succinate XL (Toprol-XL) 100 MG 24 hr tablet Take 1 tablet by mouth in the morning. Active take 1 tablet by mouth twice kin ly metoprolol tartrate (Lopressor) 50 MG tablet Take 1 tablet twice a day by oral route for 30 days. Active naproxen 500 mg oral tablet (9 sources) Nonsteroidal Anti-inflammatory Drug naproxen (Naprosy n) 500 MG tablet Active ofloxacin 3 mg/ml ophthalmic solution (9 sources) Quinolone Antimicrobial Start: 023 take 1 drop(s) into the eye(s) five times daily ofloxacin (Ocuflox) 0.3 % ophthalmic solution INSTILL 1 DROP INTO RIGHT EYE 5 TIMES DAILY. START 1 DAY BEFORE SURGERY & CONTINUE AFTER DIRECTED 11/01/2023 Active omeprazole 20 mg delayed release oral capsule (9 sources) Proton Pump Inhibitor take 1 capsule by mouth once daily omeprazole (PriLOSEC) [address] capsule Take 1 capsule every day by oral route for 30 days. Active prednisoLONE acetate 10 mg/ml ophthalmic suspension (9 sources) Corticosteroid Start: 023 prednisoLONE acetate (Pred-Forte) 1 % ophthalmic suspension PLEASE SEE ATTACHED FOR DETAILED DIRECTIONS 11/01/2023 Active simvastatin 20 mg oral tablet (9 sources) HMG-CoA Reductase Inhibitor take 1 tablet by mouth in the morning simvastatin (Zocor) 20 MG tablet Take 1 tablet by mouth in the morning. Active terazosin 10 mg oral capsule (9 sources) alpha-Adrenergic Marbin take 1 capsule by mouth once daily terazosin (Hytrin) 10 MG capsule Take 1 capsule every day by oral route. Active Problems Active Problems Problem Classification Problem Date Documented Da te Episodic/Chronic Acquired foot deformities (2 sources) Hallux valgus (acquired), left foot; Translations: [Hallux valgus (acquired)] 07-03-2025 Chronic Acquired foot deformities (2 sources) Toe joint rigid; Translations: [Hallux rigidus, right foot] 07-03-2025 Chronic Cardiac dysrhythmias (3 sources) Unspecified atrial fibrillation; Translations: [Paroxysmal atrial fibrillation] Onset: 07-01-2022 Chronic Cataract (20 sources) Bilateral age-related nuclear cataracts; Translations: [Age-related nuclear cataract, bilateral] Onset: 09-26-2023 Resolved: 01-14-2025 09-26-2023 Chronic Coronary atherosclerosis and other heart disease (1 source) Atherosclerotic heart disease of [place] coronary artery without angina pectoris; Translations: [ASHD [place] W/O ANGINA PECTORIS] Onset: 07-01-2022 Chronic Diabetes mellitus without complication (1 source) Other abnormal glucose; Translations: [OTHER ABNORMAL GLUCOSE] Onset: 07-01-2022 Episodic Disorders of lipid metabolism (6 sources) Hyperlipidemia, unspecified; Translations: [Mixed hyperlipidemia] Onset: 06-30-2022 Chronic Essential hypertension (2 sources) Essential (primary) hypertension; Translations: [Essential (primary) hypertension] Onset: 06-23-2025 Chronic Heart valve disorders (1 source) Rheumatic disorders of both mitral and aortic valves; Translations: [RHEUMATIC D/O MITRAL AORTIC VALVES] Onset: 07-01-2022 Chronic Inflammatory conditions of male genital organs (1 source) Inflammatory disease of prostate, unspecified; Translations: [INFLAMMATORY DISEASE PROSTATE UNS] Onset: 07-01-2022 Episodic Mycoses (2 sources) Pain in toe; Translations: [Tinea unguium] 07-03-2025 Episodic Other circulatory disease (1 source) Orthostatic hypotension; Translations: [ORTHOSTATIC HYPOTENSION] Onset: 07-01-2022 Episodic Other gastrointestinal disorders (2 sources) Personal history of other diseases of the digestive system; Translations: [Personal history of other diseases of the digestive system] Onset: 06-23-2025 Episodic Other screening for suspected conditions (not mental disorders or infectious disease) (1 source) Encounter for screening for malignant neoplasm of prostate; Translations: [ENC SCREEN MALIG NEOPLASM PROSTATE] Onset: 07-01-2022 Episodic Retinal detachments; defects; vascular occlusion; and retinopathy (10 sources) Nonexudative age-related macular degeneration; Translations: [Nonexudative age-related macular degeneration, bilateral, intermediate dry stage] Onset: 09-26-2023 09-26-2023 Chronic Past or Other Problems Problem Classification Problem Date Documented Da te Episodic/Chronic Inflammation; infection of eye (except that caused by tuberculosis or sexually transmitteddisease) (8 sources) Blepharitis of upper and lower eyelids of bilateral eyes; Translations: [Unspecified blepharitis right eye, upper and lower eyelids] Onset: 03-22-2024 03-22-2024 Episodic Other eye disorders (10 sources) Dry eyes; Translations: [Dry eye syndrome of bilateral lacrimal glands] Onset: 09-26-2023 09-26-2023 Episodic Results Test Name Value Interpretation Reference Range Facility Office Visiton 06-23-2025 Follow-up visit [id number] Jana Williamson 1945 M Date Provider Department Center 06/23/2025 Bruce-ANGELO PATEL Family History Problem Relation Age of Onset Stroke Father Other Brother Diabetes Brother Family Status - Relation Status Age at Mother Father Brother Level of Service:72596 [place] OFFICE/OUTPATIENT ESTABLISHED MOD MDM 30 MIN Normal [facility] Optical coherence tomography study reporton 01-14-2025 [facility] Study observation (narrative) [facility] Office Visiton 07-05-2024 Follow-up visit [id number] Williamson,Jana Jaimes 1945 M Date Provider Department Center 07/05/2024 [id number] BANEGASREZAJayy CARD [facility] Family History Problem Relation Age of Onset Stroke Father Other Brother Diabetes Brother Family Status - Relation Status Age at Father Brother Level of Service:36990 [place] OFFICE/OUTPATIENT ESTABLISHED LOW MDM 20 MIN Reason for Visit and Comments: Follow-up [608803] - 2 mo f/u event monitor confirmed 07/04 Concerns: No cardiac symptoms/concerns. Normal [facility] INSULINon 07-01-2022 Insulin 11.1 uIU/mL Normal 2.6-24.9 [facility] Comment on above: Performed By: #### I NSULIN #### [facility] [address] [place] [address] Dr. Linda Epps T4, T3U, FTI LABCORPon 07-01 Free Thyroxine Index 2.0 Normal 1.2-4.9 [facility] Comment on above: Performed By: #### T HYLC #### [facility] [address] [place] [address] Dr. Linda Epps T3 Uptake 30 % Normal 24-39 [facility] Comment on above: Performed By: #### T HYLC #### [facility] [address] [place] [address] Dr. Linda Epps T4 [Mass/Vol] 6.8 ug/dL Normal 4.5-12.0 [facility] Comment on above: Performed By: #### T HYLC #### [facility] [address] [place] [address] Dr. Linda Epps CBC AUTO DIFFon 06-30-2022 BASO # 0.0 103/ul Normal 0.0-0.1 [facility] Comment on above: Performed By: #### C BC #### [facility] [address] [place] [address] Dr. Linda Epps Basophils/100 WBC (Bld) 0.5 % Normal 0.2-2.0 [facility] Comment on above: Performed By: #### C BC #### [facility] [address] [place] [address] Dr. Linda Epps EO # 0.1 103/ul Normal 0.0-0.7 [facility] Comment on above: Performed By: #### C BC #### [facility] [address] [place] [address] Dr. Linda Epps Eosinophils/100 WBC (Bld) 1.4 % Normal 0.9-7.0 [facility] Comment on above: Performed By: #### C BC #### [facility] [address] [place] [address] Dr. Linda Epps Erythrocyte distribution width (RBC) [Ratio] 11.6 % Normal 11.0-15.0 [facility] Comment on above: Performed By: #### C BC #### [facility] [address] [place] [address] Dr. Linda Epps Hematocrit (Bld) [Volume fraction] 42.3 % Normal 42.0-54.0 [facility] Comment on above: Performed By: #### C BC #### [facility] [address] [place] [address] Dr. Linda Epps Hemoglobin (Bld) [Mass/Vol] 14.4 g/dL Normal 14.0-18.0 [facility] Comment on above: Performed By: #### C BC #### [facility] [address] [place] [address] Dr. Linda Epps IG # 0.01 10e3/ul Normal 0.00-0.03 [facility] Comment on above: Performed By: #### C BC #### [facility] [address] [place] [address] Dr. Linda Epps IG % 0.2 % Normal 0.0-0.5 [facility] Comment on above: Performed By: #### C BC #### [facility] [address] [place] [address] Dr. Linda Epps LYMPH # 0.9 103/ul Critically low 1.2-3.8 [facility] Comment on above: Performed By: #### C BC #### [facility] [address] [place] [address] Dr. Linda Epps Lymphocytes/100 WBC (Bld) 19.9 % Critically low 20.5-60.0 [facility] Comment on above: Performed By: #### C BC #### [facility] [address] [place] [address] Dr. Linda Epps MANUAL DIFF REQ NO Normal [facility] Comment on above: Performed By: #### C BC #### [facility] [address] [place] [address] Dr. Linda Epps MCH (RBC) [Entitic mass] 33.9 pg Normal 25.9-34.0 [facility] Comment on above: Performed By: #### C BC #### [facility] [address] [place] [address] Dr. Linda Epps MCHC (RBC) [Mass/Vol] 34.0 g/dL Normal 29.9-35.2 [facility] Comment on above: Performed By: #### C BC #### [facility] [address] [place] [address] Dr. Linda Epps MCV (RBC) [Entitic vol] 99.5 fL Critically high 80.0-94.0 [facility] Comment on above: Performed By: #### C BC #### [facility] [address] [place] [address] Dr. Linda Epps MONO # 0.4 103/ul Normal 0.3-0.8 [facility] Comment on above: Performed By: #### C BC #### [facility] [address] [place] [address] Dr. Linda Epps Monocytes/100 WBC (Bld) 9.5 % Normal 1.7-12.0 [facility] Comment on above: Performed By: #### C BC #### [facility] [address] [place] [address] Dr. Linda Epps NEUT # 3.0 103/ul Normal 1.4-6.5 [facility] Comment on above: Performed By: #### C BC #### [facility] [address] [address] [address] Linda Epps Neutrophils/100 WBC (Bld) 68.5 % Normal 43.0-75.0 [facility] Comment on above: Performed By: #### C BC #### [facility] [address] [address] [address] Linda Epps Platelet mean volume (Bld) [Entitic vol] 10.7 fL Normal 9.5-13.5 [facility] Comment on above: Performed By: #### C BC #### [facility] [address] [address] [address] Linda Epps PLT 156 103/ul Normal 150-450 [facility] Comment on above: Performed By: #### C BC #### [facility] [address] [address] [address] Linda Epps RBC 4.25 106/ul Critically low 4.70-6.10 [facility] Comment on above: Performed By: #### C BC #### [facility] [address] [address] [address] Linda Epps WBC 4.4 103/ul Normal 4.0-11.0 [facility] Comment on above: Performed By: #### C BC #### [facility] [address] [address] [address] Linda Epps GLYCOHEMOGLOBIN A1Con 2021 ADA RECOMMENDATION SEE BELOW Normal [facility] Comment on above: Result Comment: ADA RECOMMENDED LIMIT 4.0 - 6.0 ADA THERAPEUTIC TARGET < 7.0 ACTION SUGGESTED > 7.0 Performed By: #### A 1C #### [facility] [address] [place] [address] Dr. Linda Epps Glucose [Mass/Vol] 123 mg/dL Normal [facility] Comment on above: Performed By: #### A 1C #### [facility] [address] [address] [address] Linda Epps HbA1c (Bld) [Mass fraction] 5.9 % Normal 4.5-6.2 [facility] Comment on above: Performed By: #### A 1C #### [facility] [address] [address] [address] Linda Epps LIPID PROFILEon 06-30-2022 CHOL-HDL RATIO NORM SEE BELOW Normal [facility] Comment on above: Result Comment: 3.3 - 4.4 LOW RISK 4.4 - 7.1 AVERAGE RISK 7.1 - 11.0 MODERATE RISK >11.0 HIGH RISK Performed By: #### T SH, URIC, LIPID, CMP #### [facility] [address] [address] [address] Linda Epps Cholesterol [Mass/Vol] 154 mg/dL Normal <=200 [facility] Comment on above: Performed By: #### T SH, URIC, LIPID, CMP #### [facility] [address] [address] [address] Linda Epps Cholesterol in HDL [Mass/Vol] 53 mg/dL Normal 40-60 [facility] Comment on above: Performed By: #### T SH, URIC, LIPID, CMP #### [facility] [address] [address] [address] Linda Epps Cholesterol in LDL [Mass/Vol] 76.6 mg/dL Normal [facility] Comment on above: Performed By: #### T SH, URIC, LIPID, CMP #### [facility] [address] [address] [address] Linda Epps Cholesterol.total/Cho lesterol in HDL [Mass ratio] 2.9 {ratio} Normal [facility] Comment on above: Performed By: #### T SH, URIC, LIPID, CMP #### [facility] [address] [address] [address] Linda Epps HDL NORMAL > or = 60 mg/dl - LOW CARDIOVASCULAR RISK <40 mg/dl - HIGH CARDIOVASCULAR RISK Normal [facility] Comment on above: Performed By: #### T SH, URIC, LIPID, CMP #### [facility] [address] [address] [address] Linda Epps LDL CALC NORMAL SEE BELOW Normal [facility] Comment on above: Result Comment: <100 mg/dl OPTIMAL 100 - 129 mg/dl NEAR OR ABOVE OPTIMAL 130 - 159 mg/dl BORDERLINE HIGH 160 - 189 mg/dl HIGH >190 mg/dl VERY HIGH Performed By: #### T SH, URIC, LIPID, CMP #### [facility] [address] [address] [address] Linda Epps Triglyceride [Mass/Vol] 122 mg/dL Normal <=150 [facility] Comment on above: Performed By: #### T SH, URIC, LIPID, CMP #### [facility] [address] [address] [address] Linda Epps VLDL CALC 24.4 mg/dL Normal [facility] Comment on above: Performed By: #### T SH, URIC, LIPID, CMP #### [facility] [address] [address] [address] Linda Epps PROF 14(COMP METB)on 022 Albumin [Mass/Vol] 3.9 g/dL Normal 3.4-5.[address] [facility] Comment on above: Performed By: #### T SH, URIC, LIPID, CMP #### [facility] [address] [address] [address] Linda Epps Albumin/Globulin [Mass ratio] 1.6 {ratio} Normal [facility] Comment on above: Performed By: #### T SH, URIC, LIPID, CMP #### [facility] [address] [address] [address] Linda Epps ALP [Catalytic activity/Vol] 72 U/L Normal 46-116 [facility] Comment on above: Performed By: #### T SH, URIC, LIPID, CMP #### [facility] [address] [address] [address] Linda Epps ALT [Catalytic activity/Vol] 40 U/L Normal 16-63 [facility] Comment on above: Performed By: #### T SH, URIC, LIPID, CMP #### [facility] [address] [address] [address] Linda Epps Anion gap [Moles/Vol] 11.7 mmol/L Normal [facility] Comment on above: Performed By: #### T SH, URIC, LIPID, CMP #### [facility] [address] [address] [address] Linda Epps AST [Catalytic activity/Vol] 27 U/L Normal 15-37 [facility] Comment on above: Performed By: #### T SH, URIC, LIPID, CMP #### [facility] [address] [address] [address] Linda Epps Bilirubin [Mass/Vol] 0.8 mg/dL Normal 0.2-1.0 [facility] Comment on above: Performed By: #### T SH, URIC, LIPID, CMP #### [facility] [address] [place] [address] Dr. Linda Epps Calcium [Mass/Vol] 8.9 mg/dL Normal 8.5-10.[address] [facility] Comment on above: Performed By: #### T SH, URIC, LIPID, CMP #### [facility] [address] [place] [address] Dr. Linda Epps Chloride [Moles/Vol] 102 mmol/L Normal 98-107 [facility] Comment on above: Performed By: #### T SH, URIC, LIPID, CMP #### [facility] [address] [place] [address] Dr. Linda Epps CO2 [Moles/Vol] 30.8 mmol/L Normal 21.0-32.0 [facility] Comment on above: Performed By: #### T SH, URIC, LIPID, CMP #### [facility] [address] [place] [address] Dr. Linda Epps Creatinine [Mass/Vol] 0.93 mg/dL Normal 0.70-1.30 [facility] Comment on above: Performed By: #### T SH, URIC, LIPID, CMP #### [facility] [address] [place] [address] Dr. Linda Epps EGFR-AF GABONESE >60 Normal >=60 [facility] Comment on above: Performed By: #### T SH, URIC, LIPID, CMP #### [facility] [address] [address] [address] Linda Epps EGFR-NON AF GABONESE >60 Normal >=60 [facility] Comment on above: Performed By: #### T SH, URIC, LIPID, CMP #### [facility] [address] [address] [address] Linda Epps Globulin (S) [Mass/Vol] 2.4 g/dL Normal [facility] Comment on above: Performed By: #### T SH, URIC, LIPID, CMP #### [facility] [address] [place] [address] Dr. Linda Epps Glucose [Mass/Vol] 131 mg/dL Critically high 74-106 [facility] Comment on above: Performed By: #### T SH, URIC, LIPID, CMP #### [facility] [address] [place] [address] Dr. Linda Epps Potassium [Moles/Vol] 3.5 mmol/L Normal 3.5-5.1 [facility] Comment on above: Performed By: #### T SH, URIC, LIPID, CMP #### [facility] [address] [place] [address] Dr. Linda Epps Protein [Mass/Vol] 6.3 g/dL Critically low 6.4-8.2 [facility] Comment on above: Performed By: #### T SH, URIC, LIPID, CMP #### [facility] [address] [place] [address] Dr. Linda Epps Sodium [Moles/Vol] 141 mmol/L Normal 136-[address] [facility] Comment on above: Performed By: #### T SH, URIC, LIPID, CMP #### [facility] [address] [place] [address] Dr. Linda Epps Urea nitrogen [Mass/Vol] 10.0 mg/dL Normal 7.0-18.0 [facility] Comment on above: Performed By: #### T SH, URIC, LIPID, CMP #### [facility] [address] [place] [address] Dr. Linda Epps Urea nitrogen/Creatinine [Mass ratio] 10.8 mg/mg Normal [facility] Comment on above: Performed By: #### T SH, URIC, LIPID, CMP #### [facility] [address] [address] [address] Linda Epps TSHon 06-30-2022 TSH 2.135 uIU/mL Normal 0.358-3.740 [facility] Comment on above: Performed By: #### T SH, URIC, LIPID, CMP #### [facility] [address] [address] [address] Linda Epps URIC ACID SERUMon 06-30-2022 Urate [Mass/Vol] 6.3 mg/dL Normal 3.5-7.2 [facility] Comment on above: Performed By: #### T SH, URIC, LIPID, CMP #### [facility] [address] [address] [address] Linda Epps OCC BLD IMMUNO SCREENon 06-20 OCCULT BLOOD Negative Normal NEGATIVE [facility] Comment on above: Performed By: #### O BSCRN #### [facility] [address] [address] [address] Linda Epps Consultation Noteon 09-01-20 Consultation Note [phone] [id number]#[id number]:127 [facility] Provider Letter FTon 08-13 Provider Letter [facility] Jacque Rg [address] [place] [address] [place] [address] Re: JANA WILLIAMSON Date of : 1945 Thank you for your referral of Jana Williamson who was seen on consultation on 08/06/2020 for left lower quadrant pain. I have enclosed my consultation notes for your review. Sincerely, Jadiel Epperson MD General Surgery [facility] Historical Records Officeon 08-07-2020 Historical Records Office [id number]. [id number]#[id number]:127 [facility] RAD - CT Reporton 08-07-2020 RAD - CT Report [id number].. [id number]#[id number]:127 [facility] Ambulatory Clinical Summaryo n 08-06-2020 Ambulatory Clinical Summary {[id number]}CD:[id number] Normal [facility] General Surgery Office/Clini c Noteon [...] GORDON HINKLE, Jadiel Schultz Only if needed [address] [place] [address]- Additional Instructions: Problem List/Past Medical [...] Mother. Hypertension: Mother and Father. Stroke: Father. [facility] Comment on above: Result Comment: Elec tronically Signed By: GORDON HINKLE, Jadiel Schultz\.rodney\Date and Time Signed: 08/06/20 15:45 EDT Provider Letter FTon 07-16 Provider Letter [facility] Jacque Rg [address] [place] [address] Re: JANA WILLIAMSON Date of : 1945 Thank you for your referral of Jana Williamson who was seen on consultation on 07/09/2020 for foreign body of knee. I have enclosed my consultation notes for your review. Sincerely, Jadiel Epperson MD General Surgery [facility] Physician Referralon 020 Physician Referral [id number]#[id number]:127 Normal [facility] Ambulatory Clinical Summaryo n 07-09-2020 Ambulatory Clinical Summary {[id number]}CD:[id number] Normal [facility] General Surgery Office/Clini c Noteon [...] in subcutaneous tissue, recommend orthopedic evaluation. Ordered: [facility] External Ambulatory Referral 2. Foreign body of [...] Mother. Hypertension: Mother and Father. Stroke: Father. [facility] Comment on above: Result Comment: Elec tronically Signed By: GORDON HINKLE, Jadiel Smith\Date and Time Signed: 07/09/20 13:30 EDT Physician Referralon 020 Physician Referral [id number]#[id number]:127 [facility] Vital Signs Date Time Vital Sign Value Performing Clinician Faci lity 07-03-2025 13:040 Body height 172.7 cm Cem Gross DPM Work Phone: [facility] 07-03-2025 13:17040 Body mass index (BMI) [Ratio] 31.02 kg/m2 Cem Gross DPM Work Phone: [facility] 07-03-2025 13:17040 Body weight 92.53 kg Cem Gross DPM Work Phone: [facility] 07-03-2025 13:17-040 Respiratory rate 16 /min Cem Gross DPM Work Phone: [facility] Healthcare Encounters Encounter Date Encounter Type Care Provider Facility Start: 07-03-2025 End: 07-03-2025 Bamboo flowsheet Cem Gross DPM Work Phone: [facility] Start: 07-03-2025 End: 07-03-2025 Bamboo flowsfatemeh Gross DPM Work Phone: [facility] Start: 07-03-2025 End: 07-03-2025 Office outpatient new 30 minutes Cem Gross DPM Work Phone: [facility] Comment on above: Hav (hallux abducto valgus), left (Primary Dx); Hallux rigidus of right foot; Pain due to onychomycosis of toenails of both feet Start: 07-03-2025 End: 07-03-2025 ambulatory CEM GROSS Not Available Start: 06-23-2025 End: 06-23-2025 ambulatory [facility] Start: 01-14-2025 End: 01-14-2025 Bamboo flowsheet John Lin DO Work Phone: [facility] Start: 01-14-2025 End: 01-14-2025 Bamboo flowsheet John Bocanegrahler DO Work Phone: [facility] Start: 01-14-2025 End: 01-14-2025 ambulatory JOHN LIN Not Available Start: 08-13-2024 End: 08-13-2024 Bamboo flowsheet John Bocanegrahler DO Work Phone: [facility] Start: 08-13-2024 End: 08-13-2024 Bamboo flowsheet John Jayy Bocanegrahler DO Work Phone: [facility] Start: 08-13-2024 End: 08-13-2024 ambulatory JOHN LIN Not Available Start: 07-05-2024 End: 07-05-2024 ambulatory [facility] Start: 12-22-2023 Bamboo flowsheet John lizarraga DO Work Phone: [facility] Start: 12-22-2023 Bamboo flowsheet Johntomas lizarraga DO Work Phone: [facility] Start: 12-22-2023 End: 12-22-2023 Postop follow up visit related to original px John Lin DO Work Phone: [facility] Comment on above: Pseudophakia (Primar y Dx) Start: 06-30-2022 End: 07-01-[address] JACQUE RG Facility: Start: 10-17-2017 End: 10-18-2017 Ambulatory DEFAULT PHYSICIAN Facility:[facility] Procedures Date Procedure Procedure Detail Performing Clinician Start: 01-14-2025 Computerized ophthal uday imaging retina John Lin DO Work Phone: Start: 01-14-2025 End: 01-14-2025 [facility]&eval comprhnsv estab pt 1/> Intermediate stage nonexudative age-related macular degeneration of both eyes John Lin DO Work Phone: Comment on above: Intermediate stage n onexudative age-related macular degeneration of both eyes (Primary Dx); Dry eyes; Blepharitis of upper and lower eyelids of both eyes, unspecified type Start: 08-13-2024 End: 08-13-2024 [facility] medical xm&eval comprhnsv estab pt 1/> Bilateral posterior capsular opacification John Lin DO Work Phone: Comment on above: Bilateral posterior capsular opacification (Primary Dx) Start: 07-05-2024 Follow-up visit Follow-up MINE REYNOSO Start: 06-30-[address] MINA RG Comment on above: Performed By: #### P [facility] #### [facility] [address] [place] [address] Dr. Linda Epps Plan of Treatment Date Care Activity Detail Author Start: 01-14-2026 End: 01-14-2026 Patient encounter procedure [facility] Start: 07-21-2025 Influenza vaccination Influenza Vacc ine (#1) [facility] Start: 07-03-2025 End: 07-03-2025 Patient encounter procedure 07/03/2025 1:40 PM EDT Office Visit [facility] [address] [facility] [facility] [address] [place] [address] Cem Gross, DPM [address] [facility] [address] [place] [address] Arrived [facility] Comment on above: Arrived Start: 03-28-2025 End: 03-28-2025 Patient encounter procedure 03/28/2025 8:30 AM EDT Office Visit [facility] [address] [place] [address] John Lin, DO [address] [place] [address] [facility] Start: 01-14-2025 End: 01-14-2025 Patient encounter procedure 01/14/2025 8:45 AM EST Office Visit [facility] [address] [place] [address] John Lin, DO [address] [place], [place] [id number] Arrived [facility] Comment on above: Arrived Start: 08-13-2024 End: 08-13-2024 Patient encounter procedure 08/13/2024 8:45 AM EDT Consult [facility] [address] [place] [address] John Lin, DO [address] [place] [address] Arrived [facility] Comment on above: Arrived Start: 07-21-2024 Influenza vaccination Influenza Vacc ine (#1) [facility] Start: 12-22-2023 End: 12-22-2023 Patient encounter procedure 12/22/2023 8:30 AM EST Office Visit [facility] [address] [place] [id number] John Lin DO [address] [place] [address] Arrived [facility] Comment on above: Arrived Start: 07-21-2023 Influenza vaccination Influenza Vacc ine (#1) [facility] Healthcare Start: 2010 Pneumococcal Vaccine : 65+ Years (1 - PCV) Pneumococcal Vaccine: 65+ Years (1 - PCV) [facility] Start: 2010 Pneumococcal Vaccine : 65+ Years (1 of 1 - PCV) Pneumococcal Vaccine: 65+ Years (1 of 1 - PCV) [facility] Start: 1995 Pneumococcal Vaccine : 65+ Years (1 of 1 - PCV) Pneumococcal Vaccine: 65+ Years (1 of 1 - PCV) [facility] Healthcare Payers Date Payer Category Payer Private Health Insurance [employer] [id number] 2022 Unknown 2015 Medicare [id number] 1959 Medicare [id number] 1959 Unknown [id number] 1945 Unknown [id number] 1945 Unknown [id number] 1945 Unknown [id number] 1945 Unknown [id number] Social History Date Type Detail Facility Start: 09-26-2023 Tobacco smoking status NHIS Ex-smoke r [facility] History of tobacco use Current smoker [facility] History of tobacco use Cigarette Smoker [facility] Start: 09-26-2023 Tobacco use and exposure Smoke less tobacco non-user [facility] Start: 11-22-2023 End: 07-03-2025 Alcohol intake Current drinker of alcohol (finding) [facility] Start: 10-10-2023 End: 01-14-2025 History of Social function [facility] Start: 10-10-2023 End: 01-14-2025 Alcohol Use Disorder Identification Test - Consumption [...] on 1 occasion? Daily or almost daily [facility] Start: 10-10-2023 Alcohol Comment caffeine intak e: 1-2 cups per day of decaff coffee [facility] Start: 1945 Sex Assigned At Not on file N [facility] Clinical Notes 12-22-2023 to 07-03-2025 Cem Gross, HEATHM - 07/03/2025 1:40 PM Zeke Lin, DO - 01/14/2025 8:45 AM Karolina Lin, DO - 08/13/2024 8:45 AM Zeke Lin, DO - 12/22/2023 8:30 AM EST Note Date & Type Note Facility 07-03-2025 History of Present illness Narrative Patient: Jana Williamson : 1945 PCP: Jacque Rg MD SUBJECTIVE This is a 80 y.o. male that presents today with a CC of elongated, thick nails. Pt states nails have been elongated and thick for many years and cause pain with ambulation in shoegear. Pt has tried previous treatment with minimal relief. Pt presents today for nail care and treatment. Patient has history of HAV deformity and has tried accommodative shoe gears with some improvement but still has issues with rubbing from time to time against his shoe gear Allergies: Allergies Allergen Reactions Nsaids Other Reaction(s): Unknown Duodenal Ulcer with severe hemorrhage 09/2015 Ibuprofen Other Reaction(s): bleeding Past Medical History: Past Medical History: Diagnosis Date Arthritis BPH (benign prostatic hyperplasia) Cataract GERD (gastroesophageal reflux disease) Hypercholesteremia Hypertension TN (myocardial infarction) ([facility]) 04/2024 Medications: Current Outpatient Medications: buPROPion XL (Wellbutrin XL) 150 MG 24 hr tablet, Take 150 mg by mouth in the morning., Disp: , Rfl: ciprofloxacin (Cipro) 500 MG tablet, Take 1 tablet twice a day by oral route., Disp: , Rfl: cloNIDine (Catapres) 0.1 MG tablet, Take 1 tablet twice a day by oral route., Disp: , Rfl: hydroCHLOROthiazide (HYDRODiuril) 25 MG tablet, Take 1 tablet by mouth in the morning., Disp: , Rfl: isosorbide mononitrate ER (Imdur) 30 MG 24 hr tablet, Take 30 mg by mouth in the morning., Disp: , Rfl: ketorolac (Acular) 0.5 % ophthalmic solution, INSTILL 1 DROP INTO AFFECTED EYE(S) TWICE A DAY ( IN THE MORNING AND BEFORE BEDTIME ), Disp: , Rfl: labetalol (Normodyne) 200 MG tablet, Take 1 tablet twice a day by oral route., Disp: , Rfl: lisinopril 20 MG tablet, Take 1 tablet every day by oral route for 30 days., Disp: , Rfl: metoprolol succinate XL (Toprol-XL) 100 MG 24 hr tablet, Take 1 tablet by mouth in the morning., Disp: , Rfl: metoprolol tartrate (Lopressor) 50 MG tablet, Take 1 tablet twice a day by oral route for 30 days., Disp: , Rfl: naproxen (Naprosyn) 500 MG tablet, , Disp: , Rfl: ofloxacin (Ocuflox) 0.3 % ophthalmic solution, INSTILL 1 DROP INTO RIGHT EYE 5 TIMES DAILY. START 1 DAY BEFORE SURGERY & CONTINUE AFTER DIRECTED, Disp: , Rfl: omeprazole (PriLOSEC) [address] capsule, Take 1 capsule every day by oral route for 30 days., Disp: , Rfl: prednisoLONE acetate (Pred-Forte) 1 % ophthalmic suspension, PLEASE SEE ATTACHED FOR DETAILED DIRECTIONS, Disp: , Rfl: simvastatin (Zocor) 20 MG tablet, Take 1 tablet by mouth in the morning., Disp: , Rfl: terazosin (Hytrin) 10 MG capsule, Take 1 capsule every day by oral route., Disp: , Rfl: Social History: Social History Socioeconomic History Marital status: Spouse name: Not on file Number of children: Not on file Years of education: Not on file Highest education level: Not on file Occupational History Not on file Tobacco Use Smoking status: Former Types: Cigarettes Smokeless tobacco: Never Substance and Sexual Activity Alcohol use: Yes Comment: caffeine intake: 1-2 cups per day of decaff coffee Drug use: Never Sexual activity: Not on file Other Topics Concern Not on file Social History Narrative Not on file Social Drivers of Health Financial Resource Strain: Not on file Food Insecurity: Not on file Transportation Needs: Not on file Physical Activity: Not on file Stress: Not on file Social Connections: Not on file Intimate Partner Violence: Unknown (01/11/2024) Received from [facility] [place] [employer] Fear of Current or Ex-Partner: Not on file Emotionally Abused: Not on file Physically Abused: Not on file Sexually Abused: Not on file Physically or Sexually Abused: Not on file Housing Stability: Not on file ROS: Gastrointestinal: denies abdominal pain, ulcers, or changes in appetite or bowel habits Musculoskeletal: Positive generalized arthritis to joints and denies loss of strength. Positive history of right total knee replacement Cardiovascular: denies CP, palpitations, irregular rhythms OBJECTIVE LE EXAM: DERM: Elongated thick yellow crumbly nails digits 1 through 10. Positive hair growth b/l feet. VASC: Positive palpable pedal pulses bilaterally NEURO: Gross sensation intact to bilateral feet ORTHO: Positive pain on palpation to toenails of the left 1,2,3,4,5 toes and right 1,2,3,4,5 toes HAV deformity left foot Range of motion of 1st MPJ right foot less than 65 degrees dorsiflexion with negative crepitus ASSESSMENT 1. Hav (hallux abducto valgus), left 2. Hallux rigidus of right foot 3. Pain due to onychomycosis of toenails of both feet PLAN Discussed proper foot care with patient today. Debride nails in length and thickness digits 1 through 10 Patient monitor for any issues with irritation or redness or skin break down to area of bunionectomy site but is to continue wider accommodative shoe gear for bunion deformities and if worsens may discuss surgical intervention in the future Cem Gross DPM documented in this encounter [facility] 06-23-2025 Note [facility] Subjective Jana Williamson is a 80 y.o. year old male patient being seen for 1 year follow up.Patient is here today for a 1 year follow up appointment. Patient states he has been feeling. Patient denies chest pain, SOB, palpitation, leg pain, fatigue. Patient denies and cardiac complaints. Patient Active Problem List Diagnosis Acute blood loss anemia Acute respiratory failure (CMS/HCC) Alcohol abuse Anemia Atrial fibrillation (CMS/HCC) Duodenal ulcer with hemorrhage Essential hypertension Hyperlipidemia Gastrointestinal hemorrhage Hypocalcemia Hypokalemia Hypomagnesemia Leukocytosis NSAID long-term use Sinus tachycardia Age-related nuclear cataract of both eyes Benign prostatic hyperplasia Diverticulosis of intestine, part unspecified, without perforation or abscess with bleeding Dry eyes History of atrial fibrillation Intermediate stage nonexudative age-related macular degeneration of both eyes Muscle weakness (generalized) Other symbolic dysfunctions Polyosteoarthritis, unspecified Pseudophakia Unspecified protein-calorie malnutrition PCO (posterior capsular opacification), 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 This is the first time I am meeting him. In the past he used to follow with Dr. Mine Reynoso from our group. He has a history of hypertension, hyperlipidemia and paroxysmal atrial fibrillation. He is not on anticoagulation therapy due to history of GI bleeding despite elevated chads VASc score. he has a history of major abdominal surgery to treat ulcers. He refused options for management including reattempt and anticoagulation therapy or left atrial appendage occlusion procedure after many discussions in the past. He was seen in April 2024 after presenting with syncopal episode and A-fib with RVR and elevated troponin and uncontrolled hypertension. At that time he had elevated alcohol level after being engaged in drinking alcoholic beverages. He follow-up 30-day event monitor was performed and ruled out malignant arrhythmias. He was noted to have a 3-second pause in his sleep. He has bradycardia with heart rates in the 30s but no symptoms. Today he reports that he has been doing well. he denies chest pain, shortness of breath, palpitations, dizziness, syncope and leg edema. he has good exercise tolerance. There is no claudication. Review of Systems Constitutional: Negative. Objective Visit Vitals BP 150/86 (BP Location: Right arm, Patient Position: Sitting) Pulse 78 Ht 1.727 m (5' 8 ) Wt 92.5 kg (204 lb) SpO2 96% BMI 31.02 kg/m??? Smoking Status Former BSA 2.11 m??? Physical Exam Constitutional: Appearance: He is well-developed. He is not ill-appearing. HENT: Head: Normocephalic and atraumatic. Nose: Nose normal. Eyes: General: No scleral icterus. Pupils: Pupils are equal, round, and reactive to light. Neck: Thyroid: No thyromegaly. Vascular: No JVD. Cardiovascular: Rate and Rhythm: Normal rate and regular rhythm. Pulses: Radial pulses are 2+ on the right side and 2+ on the left side. Heart sounds: Normal heart sounds. No murmur heard. No friction rub. No gallop. Pulmonary: Effort: Pulmonary effort is normal. No respiratory distress. Breath sounds: Normal breath sounds. No wheezing or rales. Chest: Chest wall: No tenderness. Abdominal: General: Bowel sounds are normal. There is no distension. Palpations: Abdomen is soft. Tenderness: There is no abdominal tenderness. Musculoskeletal: General: No swelling. Cervical back: Neck supple. Skin: General: Skin is warm and dry. Neurological: General: No focal deficit present. Mental Status: He is alert and oriented to person, place, and time. Psychiatric: Mood and Affect: Mood normal. Behavior: Behavior is cooperative. Judgment: Judgment normal. Allergies Allergies Allergen Reactions Nsaids (Non-Steroidal Anti-Inflammatory Drug) Unknown Duodenal Ulcer with severe hemorrhage 09/2015 Medications Current Outpatient Medications: buPROPion XL (Wellbutrin XL) 150 mg 24 hr tablet, Take 150 mg by mouth in the morning., Disp: , Rfl: hydroCHLOROthiazide (HYDRODiuril) 25 mg tablet, Take 25 mg by mouth in the morning., Disp: , Rfl: isosorbide mononitrate ER (Imdur) 30 mg 24 hr tablet, Take 1 tablet (30 mg) by mouth in the morning. Do not crush or chew., Disp: 90 tablet, Rfl: 3 metoprolol succinate XL (Toprol-XL) 100 mg 24 h (more content not included)... [facility] 01-14-2025 Note Right Eye Quality was good. Scan locations included subfoveal. Progression has worsened. Findings include abnormal foveal contour, pigment epithelial detachment, subretinal fluid. Left Eye Quality was good. Scan locations included subfoveal. Progression has worsened. Findings include abnormal foveal contour, pigment epithelial detachment, subretinal fluid. [facility] 01-14-2025 History of Present illness Narrative Images from the original note were not included. Assessment/Plan Diagnoses and all orders for this visit: Intermediate stage nonexudative age-related macular degeneration of both eyes - ARMD OU, dry. Importance of smoking cessation, blood pressure control, and healthy diet were emphasized. Patient was advised to consider ultraviolet-B blocking sunglasses. In accordance with the AREDS study, appropriate antioxidant and mineral supplements were prescribed. Patient was instructed to self monitor their monocular vision (reading/Amsler Grid) at least weekly. Patient should immediately report any new onset of decreased vision or metamorphopsia. - Cont care with Dr. Hills Dry eyes - Dry Eyes OU -- Environmental changes to minimize dryness and exposure and the use of artificial tears were recommended. Blepharitis of upper and lower eyelids of both eyes, unspecified type - Blepharitis, posterior type OU - The patient exhibits inspissated meibomian glands. Warm compresses, lid massage and lid scrubs were recommended. documented in this encounter [facility] 08-13-2024 History of Present illness Narrative Images from the original note were not included. Subjective Patient ID: Jana Williamson is a 79 y.o. male. Chief Complaint YAG; Blurred Vision HPI Blurred Vision In both eyes. Onset was gradual. Vision is difficult to focus. Severity is moderate. Occurring constantly. It is worse throughout the day. Context: mid-range vision, watching TV, computer work and night driving. Since onset it is gradually worsening. Associated symptoms include glare and haloes. Comments YAG consult referral from Dr. 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 Pt notes floaters in both eye and also says he feels like he's looking underwater in the right eye. Last edited by John Lin DO on 08/13/2024 9:18 AM. Current Outpatient Medications (Ophthalmic Agents) Medication Sig Dispense Refill ketorolac (Acular) 0.5 % ophthalmic solution INSTILL 1 DROP INTO AFFECTED EYE(S) TWICE A DAY ( IN THE MORNING AND BEFORE BEDTIME ) ofloxacin (Ocuflox) 0.3 % ophthalmic solution INSTILL 1 DROP INTO RIGHT EYE 5 TIMES DAILY. START 1 DAY BEFORE SURGERY & CONTINUE AFTER DIRECTED prednisoLONE acetate (Pred-Forte) 1 % ophthalmic suspension PLEASE SEE ATTACHED FOR DETAILED DIRECTIONS No current facility-administered medications for this visit. (Ophthalmic Agents) Current Outpatient Medications (Other) Medication Sig Dispense Refill buPROPion XL (Wellbutrin XL) 150 MG 24 hr tablet Take 150 mg by mouth in the morning. isosorbide mononitrate ER (Imdur) 30 MG 24 hr tablet Take 30 mg by mouth in the morning. ciprofloxacin (Cipro) 500 MG tablet Take 1 tablet twice a day by oral route. cloNIDine (Catapres) 0.1 MG tablet Take 1 tablet twice a day by oral route. hydroCHLOROthiazide (HYDRODiuril) 25 MG tablet Take 1 tablet by mouth in the morning. labetalol (Normodyne) 200 MG tablet Take 1 tablet twice a day by oral route. lisinopril 20 MG tablet Take 1 tablet every day by oral route for 30 days. metoprolol succinate XL (Toprol-XL) 100 MG 24 hr tablet Take 1 tablet by mouth in the morning. metoprolol tartrate (Lopressor) 50 MG tablet Take 1 tablet twice a day by oral route for 30 days. naproxen (Naprosyn) 500 MG tablet omeprazole (PriLOSEC) [address] capsule Take 1 capsule every day by oral route for 30 days. simvastatin (Zocor) 20 MG tablet Take 1 tablet by mouth in the morning. terazosin (Hytrin) 10 MG capsule Take 1 capsule every day by oral route. No current facility-administered medications for this visit. (Other) Past Medical History: Diagnosis Date Arthritis BPH (benign prostatic hyperplasia) Cataract GERD (gastroesophageal reflux disease) Hypercholesteremia (CMS/HCC) Hypertension (CMS/HCC) TN (myocardial infarction) (CMS/[facility]) 04/2024 Allergies Allergen Reactions Nsaids Other Reaction(s): Unknown Duodenal Ulcer with severe hemorrhage 09/2015 Ibuprofen Other Reaction(s): bleeding Review of Systems Constitutional: Negative. HENT: Negative. Eyes: Negative. Respiratory: Negative. Cardiovascular: Negative. Gastrointestinal: Negative. Genitourinary: Negative. Musculoskeletal: Negative. Skin: Negative. Neurological: Negative. Psychiatric/Behavioral: Negative. Hematological: Negative. Endocrine: Negative. Allergic/Immunologic: Negative. Objective Base Eye Exam Visual Acuity (Snellen - Linear) Right Left Dist cc 20/50 20/40 Correction: Glasses Tonometry (Applanation, 9:18 AM) Right Left Pressure 18 18 Pupils Pupils Right PERRL Left PERRL Visual Baeza Left Right Full Full Extraocular Movement Right Left Full, Ortho Full, Ortho Neuro/Psych Oriented x3: Yes Dilation Both eyes: 1.0% Mydriacyl @ 8:56 AM Slit Lamp and Fundus Exam External Exam Right Left External Brow ptosis, Rosacea Brow ptosis, Rosacea Slit Lamp Exam Right Left Lids/Lashes Blepharitis, Dermatochalasis - upper lid, Ptosis Blepharitis, Dermatochalasis - upper lid, Ptosis Conjunctiva/Sclera White and quiet White and quiet Cornea Decreased tear film Decreased tear film Anterior Chamber Deep and quiet Deep and quiet Iris Round and reactive Round and reactive Lens Posterior chamber intraocular lens, 1+ Posterior capsular opacification Posterior chamber intraocular lens, 1+ Posterior capsular opacification Anterior Vitreous Normal Normal Fundus Exam Right Left Disc Normal Normal Macula Retinal pigment epithelial mottling/clumping, Soft drusen Retinal pigment epithelial mottling/clumping, Soft drusen Vessels Normal Normal Periphery Normal Normal Refraction Wearing Rx Sphere Cylinder Peterson Add Right +1.00 -1.25 092 +2.75 Left +0.00 -1.25 078 +2.75 Assessment/Plan Diagnoses and all orders for this visit: Bilateral posterior capsular opacification PCO OU: (Posterior Capsule Opacification) Can be observed without intervention if PCO is not visually significant. Nd:YAG laser capsulotomy may be considered if impairment of vision rises to a level that dose not meet the patient's functional needs or interferes with activities of daily living. Risks, benefits and alternatives to the procedure will be reviewed. If the patient has undergone Nd:YAG laser capsulotomy, they are to notify their golf sales associate promptly if they have a significant change in symptoms, such as flashes of light (photopsia), an increase in floaters, loss of visual field or decrease in visual acuity. documented in this encounter [facility] 07-05-2024 Note Cardiology Follow Up Progress Note HPI: Mr. Williamson is a 76-year-old gentleman who presents to cardiology clinic for follow-up in regards to his paroxysmal atrial fibrillation and hypertension Patient has a history of GI bleeding, and as such, he has not been anticoagulated for his atrial fibrillation despite an elevated [id number] score. He adamantly refuses anticoagulation given his [...] by mouth in the morning. [DISCONTINUED] vit C,D-Ih-pqcqd-lutein-zeaxan (PreserVision AREDS-2) 250-90-40-1 mg capsule Take by [...] risks -Given elevat (more content not included)... [facility] 12-22-2023 History of Present illness Narrative Images from the original note were not included. Assessment/Plan Diagnoses and all orders for this visit: Pseudophakia - s/p CE OD (1mth): Patient should be close to off all post-op meds. Pt. received final refraction for this eye today. documented in this encounter [facility] Evaluation note Diagnosis Pseudophakia- Primary Lens replaced by other means [facility] Diagnosis Bilateral posterior capsular opacification- Primary Unspecified after-cataract [facility] Diagnosis Intermediate stage nonexudative age-related macular degeneration of both eyes- Primary Dry eyes Unspecified tear film insufficiency Blepharitis of upper and lower eyelids of both eyes, unspecified type [facility] Diagnosis Hav (hallux abducto valgus), left- Primary Hallux rigidus of right foot Pain due to onychomycosis of toenails of both feet documented in this encounter [facility] Summary [...] section and content) DATE CREATED AUTHOR 05/15/[address] [facility] DATE CREATED AUTHOR AUTHOR'S ORGANIZ ATION 09/02/2020 [facility] DATE CREATED AUTHOR AUTHOR'S ORGANIZ ATION 07/02/2022 [facility] DATE CREATED AUTHOR AUTHOR'S ORGANIZ ATION 06/24/2025 [facility] DATE CREATED AUTHOR AUTHOR'S ORGANIZ ATION 07/05/2025 [facility] EPIC Care Teams (unrecognized sec tion and content) Central Supply Technician Supervisor Relationship Specialty Start Date End Date Jacque Rg MD [address] [place] [address] PCP - General Family Medicine 09/26/23 Central Supply Technician Supervisor Relationship Specialty Start Date End Date Jacque gR MD [address] [facility] [place] [address] PCP - General Family Medicine 09/26/23 Central Supply Technician Supervisor Relationship Specialty Start Date End Date Jacque Rg MD [address] [facility] [place] [address] PCP - General Family Medicine 09/26/23 Central Supply Technician Supervisor Relationship Specialty Start Date End Date Jacque Rg MD [address] [facility] [place] [address] PCP - General Family Medicine 09/26/23 Central Supply Technician Supervisor Relationship Specialty Start Date End Date Jacque Rg MD [address] [facility] [place] [address] PCP - General Family Medicine 09/26/23 Central Supply Technician Supervisor Relationship Specialty Start Date End Date Jacque Rg MD [address] [facility] [place] [address] PCP - General Family Medicine 09/26/23 Reason for Visit (unrecogniz ed section and content) Reason Comments Post-op Reason Comments YAG Blurred Vision Reason Comments Follow-up Annual Exam Reason Comments Toenail Care FOR RECORDS PERTAINING TO PATIENTS WHO ARE [...] BE BASED ON THE PRIMARY CLINICAL RECORDS. [facility] [employer] [facility]. provides no warranty or guarantee of the accuracy or completeness of information in this document.
[2025-07-09 10:10] LABS: Hematocrit 40.6 % (42.0-54.0); Hemoglobin 13.7 g/dL (14.0-18.0); Immature Granulocytes Abs Auto 0.02 10^3/uL (0.00-0.03); Immature Granulocytes Pct Auto 0.3 % (0.0-0.5); Lymphocytes Absolute Auto 1.0 10^3/uL (1.2-3.8); Mean Corpuscular HGB Conc 33.7 g/dL (29.9-35.2); Mean Corpuscular Hemoglobin 33.4 pg (25.9-34.0); Mean Corpuscular Volume 99.0 fL (80.0-94.0); Platelet Count 194 10^3/uL (150-450); Red Blood Count 4.10 10^6/uL (4.70-6.10); White Blood Count 6.0 10^3/uL (4.0-11.0)
[2025-07-09 10:41] LABS: Alanine Aminotransferase 32 U/L (16-63); Albumin Globulin Ratio 1.3; Albumin Level 3.7 g/dL (3.4-5.0); Alkaline Phosphatase 108 U/L (46-116); Anion Gap 10.8; Aspartate Amino Transferase 24 U/L (15-37); Blood Urea Nitrogen 13.0 mg/dL (7.0-18.0); Calcium 8.6 mg/dL (8.5-10.1); Carbon Dioxide 31.4 mmol/L (21.0-32.0); Chloride 103 mmol/L (98-107); Cholesterol 152 mg/dL (<=200); Estimated GFR (African America >60 (>=60 mL/min/1.73m^2); Estimated GFR (Non-African Ame >60 (>=60 mL/min/1.73m^2); Free T3 2.58 pg/mL (2.18-3.98); Globulin 2.8 g/dL; Glucose 116 mg/dL (74-106); HDL Cholesterol 55 mg/dL (40-60); Potassium 4.2 mmol/L (3.5-5.1); Sodium 141 mmol/L (136-145); Thyroid Stimulating Hormone 2.196 uIU/mL (0.358-3.740); Total Protein 6.5 g/dL (6.4-8.2); Triglycerides 109 mg/dL (<=150); VLDL CHOLESTEROL 21.8 mg/dL
== END 2025-07-09 09:04 | disposition home or self-care (01) ==
LOC: LAB 09:06
PROVIDERS: PCP Family Medicine; Visit Provider Family Medicine
DX: K21.9 Gastro-esophageal reflux disease without esophagitis (principal); I10 Essential (primary) hypertension; E78.00 Pure hypercholesterolemia, unspecified; F32.9 Major depressive disorder, single episode, unspecified; R73.09 Other abnormal glucose; E03.9 Hypothyroidism, unspecified; Z12.5 Encounter for screening for malignant neoplasm of prostate; R53.83 Other fatigue
CPT/HCPCS: 36415; 80053; 80061; 83036; 84436; 84443; 84481; 85025; G0103